=== PATIENT | female | born 1950 | race Caucasian/White ===

== ENCOUNTER → 2016-11-12 | Outpatient (CLI) | payer MEDICARE, OTHER ==
[2016-11-12 15:31] LABS: Basophils % (A) 0 %; CH 31.3; CHCM 33.6; Eosinophils # (A) 0.2 k/uL (0-0.7); Eosinophils % (A) 3 %; HDW 2.43; HGB 13.4 gm/dL (11.4-16.0); Luc % (Auto) 2; Lymphocytes # (A) 1.9 k/uL (1.0-4.8); Lymphocytes % (A) 31 %; MCH 30.6 pg (25.0-35.0); MCHC 32.6 g/dL (31.0-37.0); MCV 93.7 fL (80.0-100.0); Mean Platelet Volume 7.5; Monocytes # (A) 0.2 k/uL (0-1.0); Monocytes % (A) 4 %; Neutrophils # (A) 3.8 k/uL (1.3-7.7); Neutrophils % (A) 61 %; RBC 4.37 m/uL (3.80-5.40); RDW 13.4 % (11.5-15.5); WBC 6.2 k/uL (3.8-10.6); WBC (Perox) 5.97
[2016-11-12 15:47] LABS: ALT 46 U/L (9-52); AST 34 U/L (14-36); Alkaline Phosphatase 80 U/L (38-126); Anion Gap 10 mmol/L; Blood Urea Nitrogen 19 mg/dL (7-17); Calcium 9.8 mg/dL (8.4-10.2); Carbon Dioxide 26 mmol/L (22-30); Chloride 107 mmol/L (98-107); Glucose 84 mg/dL (74-99); Non-African American GFR(MDRD) >60 (>60 ml/min/1.73 sqM); Sodium 143 mmol/L (137-145); Total Bilirubin 0.7 mg/dL (0.2-1.3); Total Protein 6.3 g/dL (6.3-8.2)
[2016-11-12 15:55] LABS: Potassium 4.6 mmol/L (3.5-5.1)
[2016-11-12 16:18] LABS: Cancer Anitgen 125 8.8 U/mL (<35.1)
== END | disposition home or self-care (01) ==
LOC: LABWHC1 15:16
PROVIDERS: ATTEND Obstetrics & Gynecology Gynecologic Oncology
DX: C54.1 Malignant neoplasm of endometrium (principal)
CPT/HCPCS: 36415; 80053; 82378; 85025; 86304

== ENCOUNTER → 2017-01-27 | Outpatient (CLI) | payer MEDICARE, OTHER ==
--- NOTE | 2017-01-27 14:49 | US ---
EXAMINATION TYPE: US venous doppler duplex LE RT DATE OF EXAM: 01/27/2017 2:21 PM COMPARISON: Right lower extremity venous ultrasound June 20, 2016 CLINICAL HISTORY: Evaluate DVT, Z09 F/U Exam Pain M79.604. pt states intermittent rt leg pain, no pre v dvt SIDE PERFORMED: right TECHNIQUE: The right lateral lower extremity deep venous system is examined utilizing real time line ar array sonography with graded compression, Doppler sonography and col-flow sonography. VESSELS IMAGED: External Iliac Vein (EIV) Common Femoral Vein Deep Femoral Vein Greater Saphenous Vein * Femoral Vein Popliteal Vein Small Saphenous Vein * Proximal Calf Veins (* superficial vessels) TECHNOLOGIST IMPRESSION: negative for Right Leg DVT Grayscale, color Doppler, spectral Doppler imaging performed of the deep veins in the right lower ext remity. There is normal flow, compressibility and vascular waveforms noted. IMPRESSION: No ultrasound evidence for acute DVT in the right lower extremity. No significant change from prior.
== END ==
LOC: RADUSWWP 13:58
PROVIDERS: ATTEND Orthopaedic Surgery
DX: I80.9 Phlebitis and thrombophlebitis of unspecified site (principal); M25.561 Pain in right knee; M17.11 Unilateral primary osteoarthritis, right knee

== ENCOUNTER → 2017-03-26 | Outpatient (CLI) | payer MEDICARE, OTHER ==
[2017-03-26 13:47] LABS: Basophils % (A) 0 %; CH 30.9; CHCM 33.5; Eosinophils # (A) 0.1 k/uL (0-0.7); Eosinophils % (A) 2 %; HCT 42.5 % (34.0-46.0); HDW 2.31; HGB 14.3 gm/dL (11.4-16.0); Luc # (Auto) 0.15; Luc % (Auto) 3; Lymphocytes # (A) 2.1 k/uL (1.0-4.8); Lymphocytes % (A) 41 %; MCH 31.2 pg (25.0-35.0); MCHC 33.7 g/dL (31.0-37.0); MCV 92.7 fL (80.0-100.0); Mean Platelet Volume 6.9; Monocytes # (A) 0.2 k/uL (0-1.0); Monocytes % (A) 4 %; Neutrophils # (A) 2.5 k/uL (1.3-7.7); Neutrophils % (A) 50 %; RBC 4.59 m/uL (3.80-5.40); RDW 13.3 % (11.5-15.5); WBC 5.1 k/uL (3.8-10.6); WBC (Perox) 4.95
[2017-03-26 14:05] LABS: ALT 38 U/L (9-52); AST 27 U/L (14-36); Alkaline Phosphatase 68 U/L (38-126); Anion Gap 9 mmol/L; Blood Urea Nitrogen 17 mg/dL (7-17); Calcium 10.1 mg/dL (8.4-10.2); Carbon Dioxide 28 mmol/L (22-30); Chloride 106 mmol/L (98-107); Cholesterol 195 mg/dL (<200); Glucose 85 mg/dL (74-99); HDL Cholesterol 78 mg/dL (40-60); Non-African American GFR(MDRD) >60 (>60 ml/min/1.73 sqM); Sodium 143 mmol/L (137-145); Total Bilirubin 0.9 mg/dL (0.2-1.3); Total Protein 7.2 g/dL (6.3-8.2); Triglycerides 133 mg/dL (<150)
[2017-03-26 14:36] LABS: Cancer Anitgen 125 9.6 U/mL (<35.1)
== END | disposition home or self-care (01) ==
LOC: LABWHC1 13:25
PROVIDERS: ATTEND Family Medicine
DX: C54.1 Malignant neoplasm of endometrium (principal)
CPT/HCPCS: 36415; 80053; 80061; 82378; 85025; 86304

== ENCOUNTER → 2017-04-04 | Outpatient (CLI) | payer MEDICARE, OTHER ==
[2017-04-04 15:29] LABS: Appearance,Urine Cloudy (Clear); Bacteria,Urine Rare /hpf; Bilirubin,Urine Negative (Negative); Glucose,Urine (UA) Negative (Negative); Ketones,Urine Negative (Negative); Leukocyte Esterase,Urine Moderate (Negative); Mucus,Urine Rare /hpf; Nitrite,Urine Negative (Negative); PH, Urine 5.5 (5.0-8.0); Particle Count 4615; Protein,Urine Negative (Negative); RBC,Urine 1 /hpf (0-5); Specific Gravity,Urine 1.013 (1.001-1.035); Squamous Epithelial Cell,Urine 4 /hpf (0-4); UA Billing (MACRO vs. MICRO) MICRO; Urobilinogen,Urine <2.0 mg/dL (<2.0); WBC,Urine 6 /hpf (0-5)
[2017-04-04 15:36] LABS: Partial Thromboplastin Time 23.7 sec (22.0-30.0); Prothrombin Time 10.1 sec (9.0-12.0)
== END | disposition home or self-care (01) ==
LOC: LABPAT 15:06
PROVIDERS: ATTEND Orthopaedic Surgery
DX: Z01.812 Encounter for preprocedural laboratory examination (principal)
CPT/HCPCS: 81001; 85610; 85730; 87070

== ENCOUNTER → 2017-04-04 | Outpatient (CLI) | payer MEDICARE, OTHER | END | disposition home or self-care (01) | LOC: LABWHC1 15:08 | PROVIDERS: ATTEND Family Medicine | DX: Z53.9 Procedure and treatment not carried out, unspecified reason (principal) ==

== ENCOUNTER 2017-04-21 11:23 | Inpatient (IN) | payer MEDICARE, OTHER ==
[2017-04-14 12:06] VITALS: BMI 36.9
[~2017-04-21 11:23] MED LIST: ACETAMINOPHEN TAB 500 MG TAB PO ONE; CLINDAMYCIN 900 MG in DEXTROSE 5% IN WATER 50 ML IVPB ONE; DEXAMETHASONE SOD PHOSPHATE 10 MG/ML 1 ML VIAL IV ONE; LACTATED RINGERS 1,000 ML IV SCH; MELOXICAM 7.5 MG TAB PO ONE; MIDAZOLAM 2 MG/2 ML VIAL IV PRN; ONDANSETRON 4 MG/2 ML VIAL IVP ONE; TRANEXAMIC ACID 1,000 MG in SODIUM CHLORIDE 0.9% 100 ML IVPB ONE
[2017-04-21] MEDS ORDERED: ROPIVACAINE 246.25 MG, EPINEPHrine 0.5 MG, KETOROLAC 30 MG, cloNIDine HCL/PF 80 MCG, WA... MISCELLANE ONE ×5 (12:58)
[2017-04-21] MEDS ORDERED: LIDOCAINE 1% 20 ML VIAL (10MG/ML) FOR IV START INTRADERMA ONE (14:04)
[2017-04-21] MEDS ORDERED: ROPIVACAINE 5 MG/ML 30 ML VIAL ONE (17:39)
[2017-04-21] MEDS ORDERED: MIDAZOLAM 2 MG/2 ML VIAL ONE (17:39)
[2017-04-21] MEDS ORDERED: ePHEDrine 50 MG/ML 1 ML AMP ONE (17:39)
[2017-04-21] MEDS ORDERED: PROPOFOL 10 MG/ML 20 ML VIAL IV ONE (17:39)
[2017-04-21] MEDS ORDERED: fentaNYL (PF) 50 MCG/ML 2 ML AMP ONE (17:39)
[2017-04-21] MEDS ORDERED: ONDANSETRON 4 MG/2 ML VIAL ONE (17:39)
[2017-04-21] MEDS ORDERED: LACTATED RINGERS 1,000 ML IV ONE ×3 (18:00→19:34)
[2017-04-21] MEDS ORDERED: HYDROmorphone 1 MG/ML 1 ML SYRINGE IVP PRN ×2 (19:42)
[2017-04-21] MEDS ORDERED: NALOXONE 0.4 MG/ML 1 ML VIAL IV PRN (19:42)
[2017-04-21] MEDS ORDERED: HYDROcodone/APAP 5-325MG 1 EACH TAB PO PRN (19:42)
[2017-04-21] MEDS ORDERED: TEMAZEPAM 15 MG CAP PO PRN (19:42)
[2017-04-21] MEDS ORDERED: ACETAMINOPHEN TAB 325 MG TAB PO PRN (19:42)
[2017-04-21] MEDS ORDERED: NA PHOS,M-B/NA PHOS,DI-BA 133 ML ENEMA RECTAL PRN (19:42)
[2017-04-21] MEDS ORDERED: MAGNESIUM HYDROXIDE 2,400 MG/10 ML CUP PO PRN (19:42)
[2017-04-21] MEDS ORDERED: ONDANSETRON 4 MG/2 ML VIAL IVP PRN (19:42)
--- NOTE | 2017-04-21 19:45 | P.OP ---
Date of Procedure: 04/21/17 Preoperative Diagnosis: Postoperative Diagnosis: Procedure(s) Performed: PREOPERATIVE DIAGNOSIS: Right knee severe osteoarthritis with genu varum POSTOPERATIVE DIAGNOSIS: Right knee severe osteoarthritis with genu varum OPERATION: Right knee cemented total replacement arthroplasty. ANESTHESIA: Spinal ESTIMATED BLOOD LOSS: 100 ml. STRUCTURAL STEEL ERECTOR: Sugar Vinson PA-C (assistance with: patient positioning, retraction, exposure, hemostasis, leg positioning, implantation, irrigation, closure, dressing) COMPLICATIONS: None apparent. COMPONENTS IMPLANTED: Persona system from [employer] INDICATIONS: Mrs. Mccray is a 67-year-old female with a history of right knee osteoarthritis. The patient's knee is end-stage, and conservative management has failed. The operation of knee replacement has been discussed at length in the office, as well as potential risks and complications. These are inclusive of, but not limited to: bleeding, infection, scarring, discomfort, blood vessel and nerve damage, need for further surgery, failure to relieve symptoms, persistence, recurrence, or worsening of problems, loosening, dislocation, wear , blood clot, pulmonary embolism, , gait dysfunction, stiffness, and other risks as discussed in the office. The patient elects to proceed and the consent form has been signed. PROCEDURE: The patient was taken to the operating room and positioned on the operating room table in the supine position. Anesthesia was initiated. Care was taken to make sure that all pressure points were adequately padded. The operative lower extremity was prepped and draped in the usual aseptic fashion using ChloraPrep. Ioban drape was used for the case and the patient received intravenous antibiotics within one hour of the incision. A pneumotourniquet and leg resendiz were used for the case. The limb was exsanguinated with an Esmarch bandage and the tourniquet was inflated to 350 mmHg. Time-out was called confirming the patient's identity, side, procedure and administration of tranexamic acid and antibiotics. The incision was then created midline directly over the knee, carried down through skin and into the subcutaneous tissues and down to fascia. Full thickness subcutaneous medial flap was developed. Medial parapatellar arthrotomy was performed and the interior of the knee was inspected. There was end-stage osteoarthritis of the knee with a mild to moderate genu varum type deformity. The fat pad was excised and proximal medial release on the tibia was completed using meticulous dissection and a curved osteotome. The anterior cruciate ligament was taken down. Note was made of significant attrition of the anterior and significant degenerative appearance of the posterior cruciate ligaments. The exposure was excellent. The knee was flexed 90 degrees and the patella was everted. A spot was chosen on the femur approximately 1 cm anterior to the posterior cruciate ligament insertion and an intramedullary hole was created within the femur. The intramedullary guide was then set to 5 degrees of valgus. The distal cutting block was attached and pinned into position. An appropriate amount of distal femoral resection was set. The oscillating saw was then used to make the distal femoral cut. This cut was confirmed to be flat with the flat end of an osteotome. The retractors were placed around the tibia and the tibial surface was addressed. The angle and depth of resection was adjusted using an extramedullary cutting guide. The guide had a built-in 3 degree posterior slope cut. Once the cutting guide was adjusted appropriately and in line with the axis of the tibia and confirmed to be in good position in relation to the second metatarsal and transmalleolar axis, the tibial cut was then created with protection of the posterior neurovascular structures and the collateral ligaments. The tibial cut surface was removed and sized. Femoral sizing was then accomplished using anterior referencing. Care was taken to analyze the posterior condyles for signs of deficiency or severe wear, and adjustments to the guide were made, as appropriate. 3 degree external rotation pins were placed. The cutting jig for the femur was applied to these pins. The planned cuts were further analyzed prior to performing them with the oscillating saw. No femoral notching was produced. Bone fragments were removed and the cut surfaces were finished, as necessary, with a reciprocating saw. Spacer block technique was then used to confirm that the flexion and extension gaps were equal. Soft tissue releases and adjustment of the tibial and/or femoral cuts were made, as necessary, until the gaps were equal. This included release of the posterior cruciate ligament, which was tight in this patient and , if left unreleased, would have resulted in poor kinematics and possibly early loosening. The femur was then further finished for a posterior cruciate ligament substituting component. Patellar resurfacing was performed using a reamer. The size of the required patellar component was estimated and the patellar surface was then reamed down to a residual thickness which would recreate the [place] thickness with the component. The placement of the patellar component was influenced by the degree of patellar subluxation, if any, noted on the preoperative x-rays. Prior to placing trial components, anesthetic solution consisting of ropivicaine with epinephrine, ketorolac, and clonidine was injected carefully and methodically in a grid pattern using aspiration technique into the soft tissue around the knee circumferentially, starting with the deeper tissues first and progressing to fascia, and then finally the skin/subcutaneous tissue. Particular care was taken when injecting the posterior capsule. The trial components were inserted. The tibial tray was allowed to self center and the patella was noted to track very well. The position of the tibial component was marked and the tibia was then finished for a stemmed tibial component. Cement was mixed on the back table and applied to the final components. Trial components were removed and the cut surfaces of the bone were pulse lavaged thoroughly and dried. Cement was then applied to the tibial surface and pressurized into the surface using finger pressurization technique. The tibial component was then applied and excess cement was removed after it was impacted securely and noted to be flush with the cut surface. In similar fashion, the cement was applied to the cut femoral surface, pressurized in using finger pressurization and the component was impacted into place. Excess cement was removed. The polyethylene spacer was then implanted and locked into position. The patellar component was then applied in similar technique and a patellar clamp was used to hold the patella in place as the cement hardened. Once the cement had fully hardened, the knee was reinspected. Any other cement extrusion was removed and final kinematic testing showed range of motion from 0 to 130 degrees with excellent stability, both medially and laterally and appropriate alignment of the leg. Patellar tracking was excellent. The knee was then thoroughly pulse lavaged with normal saline. The tourniquet was deflated and hemostasis was obtained with electrocautery and IV tranexamic acid, 1 g given at the start of the operation and 1 g at the start of closure. Closure was with #2 Ethibond in the fascia/capsule and supplemented with #2 Quill, 2-0 Vicryl suture was used for the subcutaneous tissues and 3-0 Quill for the skin. Dermabond/Steri-Strips were then applied. A lightly compressive dressing was applied using Webril and an Daryn wrap. The patient was then transferred to stretcher and taken to the recovery room in stable condition. Sponge and needle counts were correct. Implants: Indications for Procedure: Operative Findings: Description of Procedure:
[2017-04-21] MEDS: HYDROmorphone 1 MG/ML 1 ML SYRINGE IVP PRN ×2 (20:34→21:59)
--- NOTE | 2017-04-21 20:42 | XR ---
EXAMINATION TYPE: XR knee limited RT DATE OF EXAM: 04/21/2017 COMPARISON: NONE HISTORY: Postoperative TECHNIQUE: AP and crosstable lateral FINDINGS: TKR placement appears anatomic. Postsurgical soft tissue findings noted. No unexpected radi opaque foreign bodies. Skeletal structures are unremarkable. IMPRESSION: Postoperative.
[2017-04-21] MEDS: LACTATED RINGERS 1,000 ML IV SCH (21:58)
[2017-04-21] MEDS: SENNOSIDES-DOCUSATE SODIUM 1 EACH TAB PO SCH (21:59)
[2017-04-21] MEDS: ASPIRIN 325 MG TAB PO SCH (22:00)
[2017-04-21] MEDS: HYDROcodone/APAP 5-325MG 1 EACH TAB PO PRN (23:17)
[2017-04-21] MEDS: hydrOXYzine PAMOATE 25 MG CAP PO PRN (23:17)
[2017-04-22] MEDS: CLINDAMYCIN 900 MG in DEXTROSE 5% IN WATER 50 ML IVPB SCH ×4 (00:20→05:03)
[2017-04-22] MEDS: HYDROmorphone 1 MG/ML 1 ML SYRINGE IVP PRN ×3 (01:24→22:26)
[2017-04-22] MEDS: hydrOXYzine PAMOATE 25 MG CAP PO PRN ×2 (05:03→11:42)
[2017-04-22] MEDS: HYDROcodone/APAP 5-325MG 1 EACH TAB PO PRN ×4 (05:03→23:27)
[2017-04-22 08:03] LABS: Basophils % (A) 0 %; CH 31.2; Eosinophils % (A) 0 %; HCT 34.5 % (34.0-46.0); HDW 2.38; HGB 11.5 gm/dL (11.4-16.0); Luc # (Auto) 0.13; Luc % (Auto) 2; Lymphocytes # (A) 1.3 k/uL (1.0-4.8); Lymphocytes % (A) 15 %; MCH 30.6 pg (25.0-35.0); MCHC 33.2 g/dL (31.0-37.0); MCV 92.2 fL (80.0-100.0); Mean Platelet Volume 7.2; Monocytes # (A) 0.3 k/uL (0-1.0); Monocytes % (A) 4 %; Neutrophils # (A) 6.7 k/uL (1.3-7.7); Neutrophils % (A) 79 %; RBC 3.74 m/uL (3.80-5.40); RDW 13.2 % (11.5-15.5); WBC 8.5 k/uL (3.8-10.6); WBC (Perox) 8.83
[2017-04-22] MEDS: LACTATED RINGERS 1,000 ML IV SCH ×2 (08:03→09:32)
--- NOTE | 2017-04-22 08:08 | P.PN ---
Subjective Principal diagnosis: Primary osteoarthritis right knee. Status post total knee arthroplasty. This is a 67-year-old female who is status post total right knee arthroplasty. She is doing well from an orthopedic standpoint. She has no new complaints or concerns today. Vital signs and labs are stable. Objective - Vital Signs Vital signs: Vital Signs Temp 97.6 F 04/22/17 07:24 Pulse 67 04/22/17 07:24 Resp 18 04/22/17 07:24 BP 92/56 04/22/17 07:24 Pulse Ox 95 04/22/17 07:24 Intake & Output 04/21/17 04/22/17 04/22/17 18:59 06:59 18:59 Intake Total 2156 1300 Output Total 50 Balance 2156 1250 Intake: IV 2156 100 Intake, IV Titration 1200 Amount Clindamycin 900 mg In 200 Dextrose 5% in Water 50 ml @ 100 mls/hr IVPB Q6HR [facility] Rx#:[id number] Lactated Ringers 1,000 ml 1000 @ 100 mls/hr IV .Q10H [facility] Rx#:[id number] Output: Estimated Blood Loss 50 - Exam This is a pleasant 57-year-old female in no acute distress. She is alert and oriented 3. Exam of the right knee reveals that her incision looks good. There is no erythema or ecchymosis. She has full foot and ankle motion without difficulty or pain. Neurovascular status to the lower extremity is intact. Assessment and Plan (1) Primary localized osteoarthritis of right knee Status: Acute (2) Status post total knee replacement, right Status: Acute Plan: The clinical findings are discussed the patient. She is to begin physical therapy today. We're planning discharge to home tomorrow if doing well.
[2017-04-22] MEDS: MULTIVITAMINS, THERA 1 EACH TAB PO SCH (08:09)
[2017-04-22] MEDS: ASPIRIN 325 MG TAB PO SCH ×2 (08:09→20:57)
[2017-04-22] MEDS: MELOXICAM 7.5 MG TAB PO SCH (08:10)
[2017-04-22] MEDS ORDERED: ZOLPIDEM 10 MG TAB PO PRN (15:10)
[2017-04-22] MEDS: CITALOPRAM HYDROBROMIDE 10 MG TAB PO SCH (16:47)
[2017-04-22] MEDS: SENNOSIDES 8.6 MG TAB PO SCH (16:47)
--- NOTE | 2017-04-22 18:54 | CONS ---
DATE OF CONSULTATION: 04/22/2017. REASON FOR CONSULTATION: Medical management requested by Dr. Nolan. CONSULTATION: This is a 67-year-old patient of Dr. Vazquez who has undergone a right total knee arthroplasty. Had some pain upper side. No nausea, vomiting. The patient's chronic stable medical conditions include hypertension, hyperlipidemia, also has anxiety, depression controlled. REVIEW OF SYSTEMS: CONSTITUTIONAL: None. HEENT: None. RESPIRATORY: None. CARDIOVASCULAR: None. GASTROINTESTINAL: None. GENITOURINARY: None. MUSCULOSKELETAL: Arthritic pain in different joints. Dermatological: None. HEMATOLOGICAL: None. LYMPHATICS: None. PSYCHIATRY: Anxiety, depression controlled. NEUROLOGICAL: None. Past history of hypertension, hyperlipidemia, osteoarthritis, anxiety, depression, ovarian cancer treated with chemotherapy. PAST SURGICAL HISTORY: 1. Hysterectomy. 2. Right ankle fracture. 3. Bilateral ( ) tendon repair. 4. Bilateral cataract surgery. SOCIAL HISTORY: No smoking. Alcohol rarely. FAMILY HISTORY: Breast cancer. HOME MEDICATIONS: 1. Fish 1000 mg p.o. daily. 2. Multivitamin 1 tablet p.o. daily. 3. Gilbert 10, 1 to 2 tablets every 6 hours p.r.n. 4. Ultram 50 mg q.6 p.r.n. 5. Restasis 1 application to eyes b.i.d. 6. Ambien 10 mg q.h.s. p.r.n. 7. Senokot 8.6 mg p.o. daily. 8. Mevacor 10 mg p.o. daily. 9. Zestril 20 mg p.o. q.h.s. 10. Motrin 800 mg q. p.r.n. 11. Vitamin B12 2500 mcg p.o. daily. 12. Celexa 10 mg p.o. daily. 13. Lumigan 0.01% one drop to both eyes q.h.s. 14. Ventolin 1 to 2 puffs q.6 p.r.n. 15. Senokot-S 1 tablet p.o. b.i.d. 16. Gilbert 5 1 to 2 tablets q.4 p.r.n. 17. Aspirin 325 p.o. b.i.d. for DVT prophylaxis. ALLERGIES: CEFAZOLIN, LATEX. ADHESIVES. On examination, temperature 97.5, pulse 56, respiratory rate 17, blood pressure 98/51, pulse ox 97% on room air. GENERAL APPEARANCE: Well built, body mass index 36, lying in bed, awake. EYES: Pupils equal. Conjunctivae normal. HEENT: Oral cavity normal. NECK: JVD not raised. Mass not palpable. RESPIRATORY: Effort normal. LUNGS: Clear. CARDIOVASCULAR: First and second sounds normal. No edema. ABDOMEN: Soft, nontender. Liver and spleen not palpable. LYMPHATIC: No lymph nodes palpable in neck or axillae. PSYCHIATRY: Alert and oriented times three. Mood and affect normal. NEUROLOGICAL: Pupils equal. Cranial nerves grossly intact. Power and sensation grossly intact. INVESTIGATIONS: White count 8.5, hemoglobin 7.5. ASSESSMENT: 1. Right total knee arthroplasty. 2. Essential hypertension. 3. Obesity, body mass index of 36.9. 4. Hyperlipidemia. 5. Primary osteoarthritis in multiple joints. 6. Anxiety depression not otherwise specified. PLAN: Home medications are resumed. Patient getting aspirin for DVT prophylaxis. Pain is controlled. Care was discussed with the patient. Patient's to see a dietitian as an outpatient for weight loss measures. Thank you Dr. Nolan. Copy to Dr. Vazquez.
[2017-04-22] MEDS: cycloSPORINE 0.05% OPHTH 0.4 ML DROPERETTE BOTH EYES SCH (20:56)
[2017-04-22] MEDS: SENNOSIDES-DOCUSATE SODIUM 1 EACH TAB PO SCH (20:56)
[2017-04-22] MEDS ORDERED: LATANOPROST 0.005% OPHTH DROPS 2.5 ML BTL BOTH EYES SCH (21:00)
[2017-04-23] MEDS: LACTATED RINGERS 1,000 ML IV SCH ×2 (03:05→14:03)
[2017-04-23] MEDS: hydrOXYzine PAMOATE 25 MG CAP PO PRN ×2 (05:35→10:49)
[2017-04-23] MEDS: HYDROcodone/APAP 5-325MG 1 EACH TAB PO PRN (05:36)
[2017-04-23] MEDS: ASPIRIN 325 MG TAB PO SCH (08:59)
[2017-04-23] MEDS: SENNOSIDES 8.6 MG TAB PO SCH (08:59)
[2017-04-23] MEDS: MELOXICAM 7.5 MG TAB PO SCH (08:59)
[2017-04-23] MEDS ORDERED: ATORVASTATIN 10 MG TAB PO SCH (09:00)
[2017-04-23] MEDS: CITALOPRAM HYDROBROMIDE 10 MG TAB PO SCH (09:00)
[2017-04-23] MEDS: cycloSPORINE 0.05% OPHTH 0.4 ML DROPERETTE BOTH EYES SCH (09:02)
--- NOTE | 2017-04-23 09:16 | P.DS ---
Providers Date of admission: 04/21/17 12:35 Expected date of discharge: 04/23/17 Attending physician: Hermann Nolan Consults: 04/21/17 19:42 Consult Physician Routine Consulting Provider: Kei Urrutia Consult Reason/Comments: medical management Do you want consulting provider notified?: Yes Primary care physician: Javed Vazquez - Discharge Diagnosis(es) (1) Status post total knee replacement, right Patient is a pleasant 67-year-old female that was admitted to the OR on 2016 to undergo right total knee arthroplasty per Dr. Nolan. She underwent the above procedure which she tolerated well without competition. She had failed conservative measures as an outpatient and desired to proceed with elective surgery after giving informed consent. On day of discharge she is afebrile, vital signs stable, wound is benign, neurovascular status intact, calf is soft nontender, abdomen soft nontender, tolerating by mouth meds and diet, denying new complaints, denying calf pain, voiding without difficulty and passing flatus. Review of systems negative for fever, chills, chest pain, shortness breath, nausea, vomiting, dizziness, headaches, rashes, bleeding, dizziness, headaches, slurred speech or other. Current Visit: Yes Status: Acute Priority: Medium Patient Condition at Discharge: Good Plan - Discharge Summary New Discharge Prescriptions: New Aspirin 325 mg PO BID #120 tab Sennosides-Docusate Sodium [Senokot-S] 1 tab PO BID #60 tablet HYDROcodone/APAP 7.5-325MG [Warren 7.5-325] 1 - 2 each PO Q6HR PRN #90 tab PRN Reason: Pain Discontinued HYDROcodone/APAP 10-325MG [Warren 10-325] 1 - 2 tab PO Q6H PRN PRN Reason: Pain No Action Sennosides [Senokot] 8.6 mg PO DAILY Zolpidem [Ambien] 10 mg PO HS PRN PRN Reason: Insomnia Citalopram Hydrobromide [CeleXA] 10 mg PO QAM Multivitamins, Thera [Multivitamin] 1 tab PO DAILY Ibuprofen [Motrin] 800 tab PO TID PRN PRN Reason: Pain Lisinopril [Zestril] 20 mg PO HS traMADol HCL [Ultram] 50 mg PO Q6HR PRN PRN Reason: Pain Lovastatin [Mevacor] 20 mg PO DAILY Cyanocobalamin (Vitamin B-12) [Vitamin B-12] 2,500 mcg PO DAILY Bimatoprost [Lumigan .01% Ophth Soln] 1 drop BOTH EYES HS cycloSPORINE [Restasis] 1 applicator BOTH EYES BID Maury-3 Fatty Acids/Fish Oil [Fish Oil 1,000 mg Capsule] 1 cap PO DAILY Albuterol Inhaler [Ventolin Inhaler] 1 - 2 puff INHALATION RT-Q6H PRN PRN Reason: Wheezing Discharge Medication List Citalopram Hydrobromide [CeleXA] 10 mg PO QAM 04/07/14 [History] Ibuprofen [Motrin] 800 tab PO TID PRN 04/07/14 [History] Multivitamins, Thera [Multivitamin] 1 tab PO DAILY 04/07/14 [History] Sennosides [Senokot] 8.6 mg PO DAILY 04/07/14 [History] Zolpidem [Ambien] 10 mg PO HS PRN 04/07/14 [History] Lisinopril [Zestril] 20 mg PO HS 01/05/16 [History] Bimatoprost [Lumigan .01% Ophth Soln] 1 drop BOTH EYES HS 04/14/17 [History] Cyanocobalamin (Vitamin B-12) [Vitamin B-12] 2,500 mcg PO DAILY 04/14/17 [ History] Lovastatin [Mevacor] 20 mg PO DAILY 04/14/17 [History] Maury-3 Fatty Acids/Fish Oil [Fish Oil 1,000 mg Capsule] 1 cap PO DAILY [History] cycloSPORINE [Restasis] 1 applicator BOTH EYES BID 04/14/17 [History] traMADol HCL [Ultram] 50 mg PO Q6HR PRN 04/14/17 [History] Albuterol Inhaler [Ventolin Inhaler] 1 - 2 puff INHALATION RT-Q6H PRN 04/21/17 [ History] Aspirin 325 mg PO BID #120 tab 04/22/17 [Rx] Sennosides-Docusate Sodium [Senokot-S] 1 tab PO BID #60 tablet 04/22/17 [Rx] HYDROcodone/APAP 7.5-325MG [Warren 7.5-325] 1 - 2 each PO Q6HR PRN #90 tab [Rx] Follow up Appointment(s)/Referral(s): Sugar Vinson, DAVON [PHYSICIAN PERSONALIZED LIVING MANAGER] - 2 Weeks [facility], [NON-STAFF] - 1 Week Ambulatory/Diagnostic Orders: Continuous Passive Motion (CPM) Machine [DME.AMB1] Time Frame: 3 Weeks, Facility : [facility], Location: Case Management Activity/Diet/Wound Care/Special Instructions: May bear wt as tolerated w walker. May shower if no drainage from incision. CPM 5-6h daily. CPM ordered through [facility] [phone] Discharge Disposition: HOME WITH HOME HEALTH SERVICES
[2017-04-23] MEDS ORDERED: HYDROcodone/APAP 7.5-325MG 1 EACH TAB PO PRN ×2 (10:35)
[2017-04-23] MEDS: MULTIVITAMINS, THERA 1 EACH TAB PO SCH (10:48)
[2017-04-23 14:19] VITALS: BP 112/71; PULSE 79; RESP 16; TEMP 98.1
--- NOTE | 2017-04-23 19:36 | PN ---
DATE OF SERVICE: 04/23/2017 PRESENTING COMPLAINT: Right knee surgery. INTERVAL HISTORY: Patient is status post surgery. Doing much better. Some pain is present. No nausea or vomiting. Did tolerate diet. Did well with physical therapy. No new issues. Review of systems done for constitutional, cardiovascular, GI, pulmonary, musculoskeletal; relevant findings as above. Current medications are reviewed. On examination, temperature 98.9, pulse 95, respirations 17, blood pressure 114/61, pulse ox 95% on room air. GENERAL APPEARANCE: Sitting up, comfortable. EYES: Pupils equal. Conjunctivae normal. NECK: JVD not raised. Mass not palpable. RESPIRATORY: Effort normal. Lungs are clear. CARDIOVASCULAR: First and second sounds normal. No edema. ABDOMEN: Soft, nontender. Liver and spleen not palpable. PSYCHIATRY: Alert and oriented x3. Mood and affect normal. INVESTIGATIONS: White count 8.5, hemoglobin 11.5. these labs are from yesterday. ASSESSMENT: 1. Right total knee arthroplasty. 2. Essential hypertension. 3. Obesity, body mass index of 36.9. 4. Hyperlipidemia. 5. Primary osteoarthritis in multiple joints. 6. Anxiety and depression, not otherwise specified. PLAN: Continue current medication and treatment plan. Care was discussed with the patient.
== END 2017-04-23 15:47 | disposition home health service (06) | DRG 470 ==
LOC: 2ORMAIN 12:35 → 3SUR 20:19
PROVIDERS: ADMIT Orthopaedic Surgery; ATTEND Orthopaedic Surgery
PROC: 0SRC0J9 Replacement of Right Knee Joint with Synthetic Substitute, Cemented, Open Approach (ICD-10-PCS; principal; 2017-04-21 14:55)
DX: M17.11 Unilateral primary osteoarthritis, right knee (principal); I10 Essential (primary) hypertension; E78.5 Hyperlipidemia, unspecified; E66.9 Obesity, unspecified; Z68.36 Body mass index [BMI] 36.0-36.9, adult; Z79.899 Other long term (current) drug therapy; M21.161 Varus deformity, not elsewhere classified, right knee; F32.9 Major depressive disorder, single episode, unspecified; F41.9 Anxiety disorder, unspecified; Z79.82 Long term (current) use of aspirin; Z91.040 Latex allergy status
CPT/HCPCS: 85025; 88300

== ENCOUNTER → 2017-06-09 | Outpatient (CLI) | payer MEDICARE, OTHER ==
[2017-06-09 11:30] LABS: Basophils % (A) 0 %; CH 30.3; CHCM 32.1; Eosinophils # (A) 0.2 k/uL (0-0.7); Eosinophils % (A) 3 %; HCT 44.3 % (34.0-46.0); HDW 2.44; Luc # (Auto) 0.16; Luc % (Auto) 3; Lymphocytes # (A) 2.3 k/uL (1.0-4.8); Lymphocytes % (A) 40 %; MCH 31.1 pg (25.0-35.0); MCHC 32.8 g/dL (31.0-37.0); MCV 94.9 fL (80.0-100.0); Mean Platelet Volume 6.7; Monocytes # (A) 0.3 k/uL (0-1.0); Monocytes % (A) 5 %; Neutrophils # (A) 2.8 k/uL (1.3-7.7); Neutrophils % (A) 49 %; RBC 4.67 m/uL (3.80-5.40); RDW 13.5 % (11.5-15.5); WBC 5.8 k/uL (3.8-10.6); WBC (Perox) 5.19
[2017-06-09 11:36] LABS: HGB 14.5 gm/dL (11.4-16.0)
[2017-06-09 11:50] LABS: AST 27 U/L (14-36); Alkaline Phosphatase 96 U/L (38-126); Blood Urea Nitrogen 17 mg/dL (7-17); Calcium 9.9 mg/dL (8.4-10.2); Chloride 109 mmol/L (98-107); Glucose 84 mg/dL (74-99); Non-African American GFR(MDRD) >60 (>60 ml/min/1.73 sqM); Potassium 4.7 mmol/L (3.5-5.1); Sodium 142 mmol/L (137-145); Total Protein 7.1 g/dL (6.3-8.2)
[2017-06-09 11:56] LABS: ALT 46 U/L (9-52); Anion Gap 10 mmol/L; Carbon Dioxide 23 mmol/L (22-30)
== END | disposition home or self-care (01) ==
LOC: LABWHC1 10:56
PROVIDERS: ATTEND Family Medicine
DX: I10 Essential (primary) hypertension (principal)
CPT/HCPCS: 36415; 80053; 85025

== ENCOUNTER → 2018-04-02 | Outpatient (CLI) | payer MEDICARE, OTHER ==
[2018-04-02 15:49] LABS: Basophils % (A) 1 %; Eosinophils # (A) 0.2 k/uL (0-0.7); Eosinophils % (A) 3 %; HCT 44.2 % (34.0-46.0); HGB 15.2 gm/dL (11.4-16.0); Lymphocytes # (A) 2.1 k/uL (1.0-4.8); Lymphocytes % (A) 32 %; MCH 30.7 pg (25.0-35.0); MCHC 34.4 g/dL (31.0-37.0); MCV 89.1 fL (80.0-100.0); Mean Platelet Volume 6.7; Monocytes # (A) 0.3 k/uL (0-1.0); Monocytes % (A) 5 %; Neutrophils # (A) 3.8 k/uL (1.3-7.7); Neutrophils % (A) 58 %; Platelet Count 290 k/uL (150-450); RBC 4.96 m/uL (3.80-5.40); RDW 13.4 % (11.5-15.5); WBC 6.5 k/uL (3.8-10.6)
[2018-04-02 15:58] LABS: ALT 41 U/L (9-52); AST 31 U/L (14-36); Albumin 4.4 g/dL (3.5-5.0); Alkaline Phosphatase 78 U/L (38-126); Anion Gap 13 mmol/L; Blood Urea Nitrogen 22 mg/dL (7-17); Calcium 10.2 mg/dL (8.4-10.2); Carbon Dioxide 22 mmol/L (22-30); Chloride 107 mmol/L (98-107); Glucose 92 mg/dL (74-99); Potassium 4.4 mmol/L (3.5-5.1); Sodium 142 mmol/L (137-145); Total Bilirubin 0.8 mg/dL (0.2-1.3); Total Protein 6.9 g/dL (6.3-8.2)
--- NOTE | 2018-04-15 10:10 | MM ---
Reason for exam: additional evaluation requested from prior study. Last mammogram was performed 1 year and 3 months ago. History: Patient is postmenopausal and has history of ovarian cancer at age 61. Family history of breast cancer in sister at age 60. Benign MG stereo VAD BX RT of the right breast, June 27, 2015. Took hormonal contraceptives for 5 years beginning at age 20. Physical Findings: Nurse did not find any significant physical abnormalities on exam. MG 3D Diag Mammo W/Cad ADDI Bilateral CC and MLO view(s) were taken. Prior study comparison: January 10, 2017, mammogram, performed at [facility]. January 03, 2016, mammogram, performed at [facility]. September 29, 2015, bilateral MG 3d diag mammo w/cad ADDI. June 20, 2015, right breast MG diagnostic mammo RT w CAD. The breast tissue is almost entirely fat. No significant new findings when compared with previous films. These results were verbally communicated with the patient and result sheet given to the patient on 04/14/18. ASSESSMENT: Benign, BI-RAD 2 RECOMMENDATION: Routine screening mammogram of both breasts in 1 year. Manage patient on a clinical basis.
== END | disposition home or self-care (01) ==
LOC: RADMAMWWP 14:51
PROVIDERS: ATTEND Obstetrics & Gynecology Gynecologic Oncology
DX: Z08 Encounter for follow-up examination after completed treatment for malignant neoplasm (principal); Z85.3 Personal history of malignant neoplasm of breast; C54.1 Malignant neoplasm of endometrium
CPT/HCPCS: 80053; 86304; 82378; 85025; 77066; 36415; G0279; 77062

== ENCOUNTER → 2018-04-14 | Outpatient (CLI) | payer MEDICARE, OTHER ==
--- NOTE | 2018-04-15 07:23 | XR ---
EXAMINATION TYPE: XR chest 2V DATE OF EXAM: 04/14/2018 COMPARISON: 01/05/2016 HISTORY: Shortness of breath TECHNIQUE: Frontal and lateral views of the chest are obtained. FINDINGS: Scattered senescent parenchymal changes noted. Hyperinflation compatible with COPD. No evidence for infiltrate. No evidence for atelectasis. Heart size is stable. Mediastinal structures are stable and grossly unremarkable. No evidence for hilar prominence. Degenerative changes dorsal spine. IMPRESSION: 1. No evidence for acute pulmonary disease.
== END | disposition home or self-care (01) ==
LOC: RADXRMAIN 17:22
PROVIDERS: ATTEND Obstetrics & Gynecology Gynecologic Oncology
DX: C54.1 Malignant neoplasm of endometrium (principal)
CPT/HCPCS: 71046

== ENCOUNTER → 2018-08-06 | Outpatient (CLI) | payer MEDICARE, OTHER ==
--- NOTE | 2018-08-06 18:19 | US ---
EXAMINATION TYPE: US gallbladder DATE OF EXAM: 08/06/2018 COMPARISON: NONE CLINICAL HISTORY: R10.11 RUQ Pain R11.12 Nausea w/vomitting. RUQ pain and vomiting. Exam limitations due to body habitus and over lying bowel gas. EXAM MEASUREMENTS: Liver Length: 18.5 cm Gallbladder Wall: 0.4 cm CBD: 0.6 cm Right Kidney: 9.6 x 4.3 x 3.6 cm Pancreas: Tail obscured by overlying bowel gas Liver: Increased attenuation Gallbladder: Gallstones seen largest 2.7cm thickened wall. Evidence for sonographic Don's sign: No CBD: wnl Right Kidney: No hydronephrosis or masses seen IMPRESSION: Multiple gallstones. Mild gallbladder wall thickening suggestive of acute cholecystitis. No dilated ducts.
== END | disposition home or self-care (01) ==
LOC: RADUSMAIN 17:14
PROVIDERS: ATTEND Physician Assistant
DX: K80.20 Calculus of gallbladder without cholecystitis without obstruction (principal)
CPT/HCPCS: 76705

== ENCOUNTER → 2018-11-23 | Outpatient (CLI) | payer MEDICARE, OTHER ==
[2018-11-23 16:24] LABS: Basophils % (A) 1 %; Eosinophils # (A) 0.1 k/uL (0-0.7); Eosinophils % (A) 3 %; HCT 43.5 % (34.0-46.0); HGB 13.7 gm/dL (11.4-16.0); Lymphocytes # (A) 1.7 k/uL (1.0-4.8); Lymphocytes % (A) 34 %; MCH 29.5 pg (25.0-35.0); MCHC 31.5 g/dL (31.0-37.0); MCV 93.8 fL (80.0-100.0); Mean Platelet Volume 6.1; Monocytes # (A) 0.2 k/uL (0-1.0); Monocytes % (A) 4 %; Neutrophils # (A) 2.8 k/uL (1.3-7.7); Neutrophils % (A) 56 %; Platelet Count 281 k/uL (150-450); RBC 4.64 m/uL (3.80-5.40); RDW 13.8 % (11.5-15.5)
[2018-11-24 03:54] LABS: Albumin 4.6 g/dL (3.80-4.90); Albumin/Globulin Ratio 3.07 (1.20-2.10); Anion Gap 8.1 mmol/L (4.00-12.00); Calcium 9.9 mg/dL (8.7-10.3); Carbon Dioxide 25.9 mmol/L (21.6-31.8); Globulin 1.5 g/dL (1.6-3.3); Potassium 4.9 mmol/L (3.5-5.5); Total Bilirubin 0.3 mg/dL (0.3-1.2); Total Protein 6.1 g/dL (6.2-8.2)
== END | disposition home or self-care (01) ==
LOC: LABWHC1 15:43
PROVIDERS: ATTEND Obstetrics & Gynecology Gynecologic Oncology
DX: Z08 Encounter for follow-up examination after completed treatment for malignant neoplasm (principal); Z85.42 Personal history of malignant neoplasm of other parts of uterus
CPT/HCPCS: 36415; 80053; 82378; 85025; 86304

== ENCOUNTER → 2019-05-03 | Outpatient (CLI) | payer MEDICARE, OTHER | END | disposition home or self-care (01) | LOC: RADMAMWWP 11:39 | PROVIDERS: ATTEND Obstetrics & Gynecology Gynecologic Oncology | DX: Z53.9 Procedure and treatment not carried out, unspecified reason (principal) ==

== ENCOUNTER → 2019-05-27 | Outpatient (CLI) | payer MEDICARE, OTHER ==
--- NOTE | 2019-05-27 12:04 | XR ---
EXAMINATION TYPE: XR chest 2V DATE OF EXAM: 05/27/2019 COMPARISON: Chest x-ray April 14, 2018. HISTORY: Endometrial cancer. TECHNIQUE: Frontal and lateral views of the chest are obtained. FINDINGS: There is chronic parenchymal change without suspicious focal air space opacity, pleural ef fusion, or pneumothorax seen. The cardiac silhouette size is stable and mildly enlarged with atheros clerotic ectatic aorta. The osseous structures are intact. IMPRESSION: Chronic changes without acute pulmonary process. No significant change from prior.
[2019-05-27 12:13] LABS: Basophils % (A) 1 %; Eosinophils # (A) 0.1 k/uL (0-0.7); Eosinophils % (A) 2 %; HCT 40.9 % (34.0-46.0); HGB 13.4 gm/dL (11.4-16.0); Lymphocytes % (A) 35 %; MCHC 32.7 g/dL (31.0-37.0); MCV 91.8 fL (80.0-100.0); Mean Platelet Volume 6.5; Monocytes # (A) 0.2 k/uL (0-1.0); Monocytes % (A) 3 %; Neutrophils # (A) 3.2 k/uL (1.3-7.7); Neutrophils % (A) 57 %; Platelet Count 264 k/uL (150-450); RBC 4.46 m/uL (3.80-5.40); RDW 13.3 % (11.5-15.5); WBC 5.6 k/uL (3.8-10.6)
[2019-05-27 16:37] LABS: African American GFR (CKD) 76.1 (60.0-200.0); Albumin 4.4 g/dL (3.80-4.90); Albumin/Globulin Ratio 2.93 (1.60-3.17); Anion Gap 9.9 mmol/L (4.00-12.00); BUN/Creat Ratio 28.89 Ratio (12.00-20.00); Calcium 9.8 mg/dL (8.7-10.3); Carbon Dioxide 25.1 mmol/L (21.6-31.8); Globulin 1.5 g/dL (1.6-3.3); Potassium 3.9 mmol/L (3.5-5.5); Total Protein 5.9 g/dL (6.2-8.2)
== END | disposition home or self-care (01) ==
LOC: LABWHC1 11:24
PROVIDERS: ATTEND Obstetrics & Gynecology Gynecologic Oncology
DX: Z08 Encounter for follow-up examination after completed treatment for malignant neoplasm (principal); C54.1 Malignant neoplasm of endometrium
CPT/HCPCS: 36415; 71046; 80053; 82378; 85025; 86304

== ENCOUNTER → 2019-06-04 | Outpatient (CLI) | payer MEDICARE, OTHER ==
--- NOTE | 2019-06-08 14:05 | MM ---
Reason for exam: screening (asymptomatic). Last mammogram was performed 1 year and 2 months ago. History: Patient is postmenopausal and has history of ovarian cancer at age 61. Family history of breast cancer in sister at age 60. Benign MG stereo VAD BX RT of the right breast, June 27, 2015. Took hormonal contraceptives for 5 years beginning at age 20. MG 3D Screening Mammo W/Cad Bilateral CC and MLO view(s) were taken. Prior study comparison: April 02, 2018, bilateral MG 3d diag mammo w/cad ADDI. January 10, 2017, mammogram, performed at [facility]. There are scattered fibroglandular densities. No significant new finding when compared with prior studies. Chronic nodularity bilaterally. ASSESSMENT: Benign, BI-RAD 2 RECOMMENDATION: Routine screening mammogram of both breasts in 1 year.
== END | disposition home or self-care (01) ==
LOC: RADMAMWWP 14:38
PROVIDERS: ATTEND Obstetrics & Gynecology Gynecologic Oncology
DX: Z12.31 Encounter for screening mammogram for malignant neoplasm of breast (principal)
CPT/HCPCS: 77063; 77067

== ENCOUNTER → 2019-10-06 | Outpatient (CLI) | payer MEDICARE, OTHER ==
[2019-10-06 10:55] LABS: WBC 4.4 k/uL (3.8-10.6)
[2019-10-06 10:56] LABS: Basophils # (A) 0.1 k/uL (0-0.2); Basophils % (A) 1 %; Eosinophils # (A) 0.2 k/uL (0-0.7); Eosinophils % (A) 3 %; HCT 41.7 % (34.0-46.0); HGB 14.3 gm/dL (11.4-16.0); Lymphocytes # (A) 1.9 k/uL (1.0-4.8); Lymphocytes % (A) 42 %; MCH 31.8 pg (25.0-35.0); MCHC 34.2 g/dL (31.0-37.0); MCV 93.1 fL (80.0-100.0); Mean Platelet Volume 6.7; Monocytes # (A) 0.2 k/uL (0-1.0); Monocytes % (A) 5 %; Neutrophils % (A) 46 %; Platelet Count 267 k/uL (150-450); RBC 4.48 m/uL (3.80-5.40); RDW 12.9 % (11.5-15.5)
[2019-10-06 11:10] LABS: ALT 21 U/L (9-52); AST 25 U/L (14-36); African American GFR (CKD) >90 (>60 ml/min/1.73 sqM); Albumin 4.1 g/dL (3.5-5.0); Alkaline Phosphatase 91 U/L (38-126); Anion Gap 6 mmol/L; Blood Urea Nitrogen 16 mg/dL (7-17); Calcium 10.1 mg/dL (8.4-10.2); Carbon Dioxide 27 mmol/L (22-30); Chloride 108 mmol/L (98-107); Glucose 84 mg/dL (74-99); Non-African American GFR(CKD) 79 (>60 ml/min/1.73 sqM); Potassium 4.6 mmol/L (3.5-5.1); Sodium 141 mmol/L (137-145); Total Bilirubin 1.3 mg/dL (0.2-1.3); Total Protein 6.6 g/dL (6.3-8.2)
--- NOTE | 2019-10-06 15:29 | CT ---
EXAMINATION TYPE: CT ChestAbdPelvis w con DATE OF EXAM: 10/06/2019 COMPARISON: HISTORY: Malignant neoplasm of endometrium CT DLP: 2130.6 mGycm Automated exposure control for dose reduction was used. CONTRAST: CT scan of the chest, abdomen and pelvis is performed with Oral Contrast and with IV Contrast, patien t injected with 100 mL of Isovue 300. FINDINGS: LUNGS: The lungs are grossly clear, there is no concerning parenchymal mass or nodule identified. T here is no pleural effusion or pneumothorax seen. The tracheobronchial tree is patent. MEDIASTINUM: There are no greater than 1 cm hilar or mediastinal lymph nodes. No pericardial effusi on is seen. AORTA: No significant abnormality is seen. OTHER: No additional significant abnormality is seen. LIVER/GB: Patient is post cholecystectomy, liver shows low attenuation likely due to hepatic steatosi s, no evident liver mass.. PANCREAS: No significant abnormality is seen. SPLEEN: No significant abnormality is seen. ADRENALS: No significant abnormality is seen. KIDNEYS: Low dense focus present in exophytic location posterior aspect of the left kidney consistent with small cysts measuring 16 mm REPRODUCTIVE ORGANS: Uterus and adnexal structures are not seen BOWEL: Some diverticular change is associated with the colon, no evident bowel obstruction. Patient is post appendectomy. FREE AIR: No Free Air visible. ASCITES: None seen. RETROPERITONEAL ADENOPATHY: No retroperitoneal adenopathy is seen. LYMPH NODES: No greater than 1 cm abdominal or pelvic lymph nodes are appreciated. URINARY BLADDER: Mild thickening of the urinary bladder wall may be due to lack of distention, corre late to exclude cystitis PELVIC ADENOPATHY: None visualized. OSSEOUS STRUCTURES: Degenerative disc changes, facet arthropathy noted in the visualized lumbar spin e. IMPRESSION: Postop changes. Diverticulosis. No metastatic disease is evident. Hepatic steatosis. Andi tional findings above.
[2019-10-06 16:48] LABS: Cancer Antigen 125 10.5 U/mL (0.0-30.1)
== END | disposition home or self-care (01) ==
LOC: RADCTMAIN 09:53
PROVIDERS: ATTEND Obstetrics & Gynecology Gynecologic Oncology
DX: Z08 Encounter for follow-up examination after completed treatment for malignant neoplasm (principal); K57.30 Diverticulosis of large intestine without perforation or abscess without bleeding; K76.0 Fatty (change of) liver, not elsewhere classified; R93.422 Abnormal radiologic findings on diagnostic imaging of left kidney; R93.41 Abnormal radiologic findings on diagnostic imaging of renal pelvis, ureter, or bladder; Z90.49 Acquired absence of other specified parts of digestive tract; Z85.42 Personal history of malignant neoplasm of other parts of uterus
CPT/HCPCS: 80053; 86304; 82378; 85025; 71260; 74177; 36415; Q9967 ×2

== ENCOUNTER → 2020-06-14 | Outpatient (CLI) | payer MEDICARE, OTHER ==
--- NOTE | 2020-06-14 16:30 | XR ---
EXAMINATION TYPE: XR lumbosacral spine min 4V DATE OF EXAM: 06/14/2020 COMPARISON: None HISTORY: Low back pain TECHNIQUE: Five-view lumbar spine FINDINGS: Mild facet degenerative changes are present. There is loss of disc height L5-S1. Narrowing of disc height is present through the remaining lumbar disc levels. Note is made of vascular calcific ation within the aorta. There 5 lumbar-type vertebral bodies. The pedicles are intact. The mesentery T12 ribs are present. IMPRESSION: 1. Degenerative disc changes to the lumbar spine greatest at L5-S1.
== END | disposition home or self-care (01) ==
LOC: RADXRMAIN 14:51
PROVIDERS: ATTEND Physician Assistant Medical
DX: M51.37 Other intervertebral disc degeneration, lumbosacral region (principal)
CPT/HCPCS: 72110

== ENCOUNTER → 2020-06-14 | Outpatient (CLI) | payer MEDICARE, OTHER ==
--- NOTE | 2020-06-14 16:29 | XR ---
EXAMINATION TYPE: XR chest 2V DATE OF EXAM: 06/14/2020 COMPARISON: 05/27/2019 INDICATION: Malignant neoplasm TECHNIQUE: Frontal and lateral views of the chest are obtained. FINDINGS: The heart size is normal. The pulmonary vasculature is normal. The lungs are clear. IMPRESSION: 1. No suspicious acute pulmonary process. 2. No suspicious changes to suggest metastatic disease.
== END | disposition home or self-care (01) ==
LOC: RADXRMAIN 14:57
PROVIDERS: ATTEND Obstetrics & Gynecology Gynecologic Oncology
DX: Z08 Encounter for follow-up examination after completed treatment for malignant neoplasm (principal); C54.1 Malignant neoplasm of endometrium
CPT/HCPCS: 71046

== ENCOUNTER → 2020-06-26 | Outpatient (CLI) | payer MEDICARE, OTHER ==
[2020-06-26 13:33] LABS: Basophils # (A) 0.1 k/uL (0-0.2); Basophils % (A) 1 %; Eosinophils # (A) 0.1 k/uL (0-0.7); Eosinophils % (A) 2 %; HCT 45.9 % (34.0-46.0); HGB 14.6 gm/dL (11.4-16.0); Lymphocytes # (A) 2.6 k/uL (1.0-4.8); Lymphocytes % (A) 40 %; MCH 30.1 pg (25.0-35.0); MCHC 31.8 g/dL (31.0-37.0); MCV 94.7 fL (80.0-100.0); Mean Platelet Volume 7.4; Monocytes # (A) 0.3 k/uL (0-1.0); Monocytes % (A) 5 %; Neutrophils # (A) 3.2 k/uL (1.3-7.7); Neutrophils % (A) 50 %; Platelet Count 263 k/uL (150-450); RBC 4.85 m/uL (3.80-5.40); RDW 13.2 % (11.5-15.5); WBC 6.5 k/uL (3.8-10.6)
[2020-06-26 19:35] LABS: African American GFR (CKD) 87.2 (60.0-200.0); Albumin 4.2 g/dL (3.80-4.90); Albumin/Globulin Ratio 2.1 (1.60-3.17); Anion Gap 8.9 mmol/L (4.00-12.00); Calcium 10.1 mg/dL (8.7-10.3); Carbon Dioxide 24.1 mmol/L (21.6-31.8); Non-African American GFR(CKD) 75.2 (60.0-200.0); Potassium 4.4 mmol/L (3.5-5.5); Total Bilirubin 0.7 mg/dL (0.2-1.2); Total Protein 6.2 g/dL (6.2-8.2)
== END | disposition home or self-care (01) ==
LOC: LABWHC1 11:59
PROVIDERS: ATTEND Obstetrics & Gynecology Gynecologic Oncology
DX: Z08 Encounter for follow-up examination after completed treatment for malignant neoplasm (principal); C54.1 Malignant neoplasm of endometrium
CPT/HCPCS: 36415; 80053; 85025; 86304

== ENCOUNTER → 2020-06-26 | Outpatient (CLI) | payer MEDICARE, OTHER ==
--- NOTE | 2020-06-28 08:36 | MM ---
Reason for exam: screening (asymptomatic). Last mammogram was performed 1 year and 1 month ago. History: Patient is postmenopausal and has history of ovarian cancer at age 61. Family history of breast cancer in sister at age 60. Benign MG stereo VAD BX RT of the right breast, June 27, 2015. Took hormonal contraceptives for 5 years beginning at age 20. Physical Findings: A clinical breast exam by your physician is recommended on an annual basis and results should be correlated with mammographic findings. MG 3D Screening Mammo W/Cad Bilateral CC and MLO view(s) were taken. Prior study comparison: June 04, 2019, bilateral MG 3d screening mammo w/cad. April 02, 2018, bilateral MG 3d diag mammo w/cad ADDI. There are scattered fibroglandular densities. Benign appearing bilateral calcifications. ASSESSMENT: Benign, BI-RAD 2 RECOMMENDATION: Routine screening mammogram of both breasts in 1 year.
== END | disposition home or self-care (01) ==
LOC: RADMAMWWP 11:39
PROVIDERS: ATTEND Obstetrics & Gynecology Gynecologic Oncology
DX: Z12.31 Encounter for screening mammogram for malignant neoplasm of breast (principal)
CPT/HCPCS: 77063; 77067

== ENCOUNTER 2020-09-04 18:48 | Emergency (ER) | payer MEDICARE, OTHER ==
--- NOTE | 2020-09-04 18:38 | US ---
EXAMINATION TYPE: US venous doppler duplex LE RT DATE OF EXAM: 09/04/2020 6:20 PM COMPARISON: US CLINICAL HISTORY: R60.0 edema. Swelling x 2 days. No hx of DVT. Hx right knee replacement, surgery on right achilles tendon, and surgery on right ankle. SIDE PERFORMED: Right TECHNIQUE: The lower extremity deep venous system is examined utilizing real time linear array sonog marco with graded compression, doppler sonography and color-flow sonography. VESSELS IMAGED: Common Femoral Vein Deep Femoral Vein Greater Saphenous Vein * Femoral Vein Popliteal Vein Small Saphenous Vein * Proximal Calf Veins (* superficial vessels) Right Leg: EIV not visualized. Exam slightly limited due to swelling and patient body habitus. There appear to be internal echoes within the right distal femoral vein and right popliteal vein. These ve in segments do not appear to compress or compress incompletely. Trickle-no flow seen in distal femora l vein and popliteal vein. Prox calf veins not well seen. IMPRESSION: There is evidence of acute and chronic deep vein thrombosis in the right side femoral an d popliteal vein.
[2020-09-04 18:55] VITALS: RESP 18
[2020-09-04 19:53] LABS: Basophils # (A) 0.1 k/uL (0-0.2); Basophils % (A) 1 %; Eosinophils # (A) 0.2 k/uL (0-0.7); Eosinophils % (A) 3 %; HCT 42.6 % (34.0-46.0); Lymphocytes # (A) 2.2 k/uL (1.0-4.8); Lymphocytes % (A) 30 %; MCH 31.1 pg (25.0-35.0); MCHC 32.8 g/dL (31.0-37.0); MCV 94.6 fL (80.0-100.0); Mean Platelet Volume 7.3; Monocytes # (A) 0.4 k/uL (0-1.0); Monocytes % (A) 5 %; Neutrophils # (A) 4.3 k/uL (1.3-7.7); Neutrophils % (A) 59 %; Platelet Count 289 k/uL (150-450); RBC 4.51 m/uL (3.80-5.40); WBC 7.2 k/uL (3.8-10.6)
[2020-09-04 19:59] LABS: Albumin 3.9 g/dL (3.5-5.0); Calcium 9.8 mg/dL (8.4-10.2); Potassium 4.2 mmol/L (3.5-5.1); Total Bilirubin 0.8 mg/dL (0.2-1.3); Total Protein 6.5 g/dL (6.3-8.2)
[2020-09-04 20:02] LABS: INR 0.9 (<1.2); Partial Thromboplastin Time 22.7 sec (22.0-30.0); Prothrombin Time 9.6 sec (9.0-12.0)
[2020-09-04] MEDS ORDERED: APIXABAN 5 MG TAB PO STA (20:07)
--- NOTE | 2020-09-04 20:14 | ED ---
General Adult HPI - General Chief complaint: Extremity Problem,Nontraumatic Stated complaint: DVT Time Seen by Provider: 09/04/20 18:57 Source: patient Mode of arrival: ambulatory Limitations: no limitations - History of Present Illness Initial comments: 70-year-old female presents to the emergency department from outpatient ultrasound for further evaluation after positive DVT study. Patient states she developed pain in her right knee on Friday but attributed it to a tendon issue. States today the area became warm and tender to the touch so she called her primary care provider who saw her in the office and then sent her over for Doppler study. Patient denies any chest pain, tightness in her chest, shortness of breath, difficulty ambulating, or decreased range of motion. States her right leg does appear more swollen to her than the left. Patient states she did have a back injury around Jul 17 and was pretty immobile for around 7 weeks. Patient denies any recent rash, fever, chills, cough, abdominal pain, nausea, vomiting, diarrhea, constipation, back pain, numbness, tingling, dizziness, weakness, hematuria, dysuria, urinary urgency, urinary frequency, headache, visual changes, or any other complaints. - Related Data Home Medications Medication Instructions Recorded Confirmed Citalopram Hydrobromide [CeleXA] 10 mg PO QAM 04/07/14 04/21/17 Multivitamins, Thera [Multivitamin 1 tab PO DAILY 04/07/14 04/21/17 (formulary)] Sennosides [Senokot] 8.6 mg PO DAILY 04/07/14 04/21/17 Zolpidem [Ambien] 10 mg PO HS PRN 04/07/14 04/21/17 lisinopriL [Zestril] 20 mg PO HS 01/05/16 04/21/17 Bimatoprost [[place]umigan .01% Ophth 1 drop BOTH EYES HS 04/14/17 04/21/17 Soln] Cyanocobalamin (Vitamin B-12) 2,500 mcg PO DAILY 04/14/17 04/21/17 [Vitamin B-12] Lovastatin [Mevacor] 20 mg PO DAILY 04/14/17 04/21/17 cycloSPORINE [Restasis] 1 applicator BOTH EYES BID 04/14/17 04/21/17 Albuterol Inhaler (Mhu) [Ventolin 1 - 2 puff INHALATION RT-Q6H PRN 04/21/17 04/21/17 Hfa Inhaler (Mhu)] Previous Rx's Medication Instructions Recorded Aspirin 325 mg PO BID #120 tab 04/22/17 Sennosides-Docusate Sodium 1 tab PO BID #60 tablet 04/22/17 [Senokot-S] HYDROcodone/APAP 7.5-325MG [[place] 1 - 2 each PO Q6HR PRN #90 tab 04/23/17 7.5-325] traMADol HCL [Ultram] 50 mg PO Q6HR PRN #0 04/23/17 Apixaban [Eliquis Starter Pack 0 mg PO DIRECTED 30 Days #1 pack 09/04/20 (for VTE)] Allergies Allergy/AdvReac Type Severity Reaction Status Date / Time adhesive Allergy Unknown Rash/Hives Verified 09/04/20 18:55 cefazolin Allergy Rash/Hives Verified 09/04/20 18:55 latex Allergy Rash/Hives Verified 09/04/20 18:55 chloraprep Allergy Rash/Hives Uncoded 09/04/20 18:55 smoke Allergy Unknown Uncoded 09/04/20 18:55 Review of Systems ROS Statement: Those systems with pertinent positive or pertinent negative responses have been documented in the HPI. ROS Other: All systems not noted in ROS Statement are negative. Past Medical History Past Medical History: Cancer, Osteoarthritis (OA) Additional Past Medical History / Comment(s): HX OF OVARIAN CA WITH CHEMOTHERAPY APPROX 3 YRS AGO (2010) History of Any Multi-Drug Resistant Organisms: None Reported Past Surgical History: Orthopedic Surgery Additional Past Surgical History / Comment(s): RIGHT ANKLE FX, ADDI ACHILLES TENDONS, ADDI CATARACT Past Anesthesia/Blood Transfusion Reactions: No Reported Reaction Past Psychological History: Anxiety Smoking Status: Never smoker Past Alcohol Use History: Rare Past Drug Use History: None Reported - Past Family History Mother History Unknown: Yes Father History Unknown: Yes Sister(s) Family Medical History: Cancer Additional Family Medical History / Comment(s): breast General Exam Limitations: no limitations (Well-developed, well-nourished female who presents in no acute distress. Initial temperature 97.5F, pulse 85, respirations 18, blood pressure 115/62, pulse ox 94% on room air.) General appearance: alert, in no apparent distress Respiratory exam: Present: normal lung sounds bilaterally. Absent: respiratory distress, wheezes, rales, rhonchi, stridor Cardiovascular Exam: Present: regular rate, normal rhythm, normal heart sounds. Absent: systolic murmur, diastolic murmur, rubs, gallop, clicks GI/Abdominal exam: Present: soft, normal bowel sounds. Absent: distended, tend erness, guarding, rebound, rigid Left Lower Leg exam: Present: normal inspection, full ROM. Absent: tenderness, swelling, erythema, Homans' sign Neurovascular tendon exam: Present: no vascular compromise Right Lower Leg exam: Present: full ROM, tenderness, swelling. Absent: erythema, Homans' sign Neurovascular tendon exam: Present: no vascular compromise Neurological exam: Present: alert, oriented X3, CN II-XII intact Psychiatric exam: Present: normal affect, normal mood Skin exam: Present: warm, dry, intact, normal color. Absent: rash Course Vital Signs 09/04/20 09/04/20 09/04/20 18:51 19:50 20:43 Temperature 97.5 F L 98 F Pulse Rate 85 87 77 Respiratory 18 18 18 Rate Blood Pressure 115/62 121/72 120/60 O2 Sat by Pulse 94 L 98 98 Oximetry Medical Decision Making - Medical Decision Making 70-year-old female presents to the emergency department from outpatient ultrasound due to positive Doppler study of the right lower extremity. States she has had pain and swelling in the right lower extremity for the past 2 days. Lab work was obtained with no significant findings; patient was therefore started on Eliquis. Discussed risks associated blood thinning medicines extensi vely and encouraged follow-up with a primary care doctor for recheck and further management. Return parameters discussed with patient. She verbalizes understanding and agrees with this plan. - Lab Data Result diagrams: 09/04/20 19:43 09/04/20 19:43 Lab Results 09/04/20 09/04/20 09/04/20 Range/Units 19:43 19:43 19:43 WBC 7.2 (3.8-10.6) k/uL RBC 4.51 (3.80-5.40) m/uL Hgb 14.0 (11.4-16.0) gm/dL Hct 42.6 (34.0-46.0) % MCV 94.6 (80.0-100.0) fL MCH 31.1 (25.0-35.0) pg MCHC 32.8 (31.0-37.0) g/dL RDW 13.0 (11.5-15.5) % Plt Count 289 (150-450) k/uL Neutrophils % 59 % Lymphocytes % 30 % Monocytes % 5 % Eosinophils % 3 % Basophils % 1 % Neutrophils # 4.3 (1.3-7.7) k/uL Lymphocytes # 2.2 (1.0-4.8) k/uL Monocytes # 0.4 (0-1.0) k/uL Eosinophils # 0.2 (0-0.7) k/uL Basophils # 0.1 (0-0.2) k/uL PT 9.6 (9.0-12.0) sec INR 0.9 (<1.2) APTT 22.7 (22.0-30.0) sec Sodium 139 (137-145) mmol/L Potassium 4.2 (3.5-5.1) mmol/L Chloride 106 (98-107) mmol/L Carbon Dioxide 26 (22-30) mmol/L Anion Gap 7 mmol/L BUN 23 H (7-17) mg/dL Creatinine 0.98 (0.52-1.04) mg/dL Est GFR (CKD-EPI)AfAm 68 (>60 ml/min/1.73 sqM) Est GFR (CKD-EPI)NonAf 59 (>60 ml/min/1.73 sqM) Glucose 121 H (74-99) mg/dL Calcium 9.8 (8.4-10.2) mg/dL Total Bilirubin 0.8 (0.2-1.3) mg/dL AST 29 (14-36) U/L ALT 23 (4-34) U/L Alkaline Phosphatase 98 (38-126) U/L Total Protein 6.5 (6.3-8.2) g/dL Albumin 3.9 (3.5-5.0) g/dL - Radiology Data Radiology results: report reviewed Venous Doppler study of the right lower extremity was obtained due to 2 day history of right leg swelling with pain localized to right popliteal area. Impression per Dr. Vasquez's evidence of acute and chronic deep vein thrombosis from the right side for more on popliteal vein Disposition Clinical Impression: Deep vein thrombosis (DVT) of right lower extremity Disposition: HOME SELF-CARE Condition: Good Instructions (If sedation given, give patient instructions): Deep Vein Thrombosis (ED), Safe Use of Anticoagulants (ED) Additional Instructions: Take blood thinning medicine as prescribed. Follow-up with your primary care provider in the next 1-2 days for a recheck. Watch for signs of bleeding and return to the ER with any chest pain, shortness of breath, or severe headache. Prescriptions: Apixaban [Eliquis Starter Pack (for VTE)] 0 mg PO DIRECTED 30 Days #1 pack Is patient prescribed a controlled substance at d/c from ED?: No Referrals: Alex Hgaan DO [Primary Care Provider] - 1-2 days Time of Disposition: 20:30 ( )
[2020-09-04 20:45] VITALS: BP 120/60; PULSE 77; TEMP 98
== END 2020-09-04 20:45 | disposition home or self-care (01) ==
LOC: EC 18:48
DX: I82.431 Acute embolism and thrombosis of right popliteal vein (principal); I82.411 Acute embolism and thrombosis of right femoral vein; F41.9 Anxiety disorder, unspecified; Z79.899 Other long term (current) drug therapy; Z91.048 Other nonmedicinal substance allergy status; Z88.1 Allergy status to other antibiotic agents; Z91.040 Latex allergy status; Z88.3 Allergy status to other anti-infective agents; Z85.43 Personal history of malignant neoplasm of ovary; Z92.21 Personal history of antineoplastic chemotherapy
CPT/HCPCS: 36415; 80053; 85025; 85610; 85730; 99284

== ENCOUNTER 2020-09-10 17:12 | Emergency (ER) | payer MEDICARE, OTHER ==
[2020-09-10 17:20] VITALS: RESP 18; TEMP 98
--- NOTE | 2020-09-10 17:51 | CT ---
EXAMINATION TYPE: CT brain robson english DATE OF EXAM: 09/10/2020 COMPARISON: NONE HISTORY: Fall injury with neck pain and headache. CT DLP: 1587.9 mGycm. Automated Exposure Control for Dose Reduction was Utilized. TECHNIQUE: CT scan of the head and cervical spine are performed without contrast. FINDINGS: There is no acute intracranial hemorrhage or midline shift identified. Ventricular and mayes lcal prominence. Low-attenuation greatest over the bilateral frontal horns. The calvarium is intact. The globes are intact and the visualized sinuses are clear. Cervical spine is visualized in its entirety from C1 through upper thoracic levels and demonstrates s traightened alignment without evidence of acute fracture or dislocation. Prevertebral soft tissue ap pears within normal limits. The C1-C2 articulation is within normal limits on the coronal images. V ertebral body heights are maintained. Moderate disc space narrowing C5-C6 and C6-C7 levels with poste rior spurring effacing anterior thecal sac greatest C5-C6 level. Waln-[id number]-[id number] bilateral neural fo raminal narrowing C5-C6 level due to marginal spurring. Mild to moderate left-sided neural foraminal narrowing C6-C7 level due to marginal spurring. Lung apices show no pneumothorax. IMPRESSION: 1. There is no acute fracture or dislocation evident in the cervical spine. 2. No acute intracranial hemorrhage or midline shift is seen. Mild to moderate diffuse cerebral atrop hy and chronic small vessel ischemic changes are appreciated.
--- NOTE | 2020-09-10 17:57 | ED ---
General Adult HPI - General Chief complaint: Fall Stated complaint: fall/head injury Time Seen by Provider: 09/10/20 17:23 Source: patient, RN notes reviewed, old records reviewed Mode of arrival: ambulatory Limitations: no limitations - History of Present Illness Initial comments: 70-year-old female recent diagnosis of pulmonary embolism on anticoagulation presenting with head injury. Patient had a slip and fall, falling onto her left knee and striking the right side of her forehead. No loss consciousness. She had some nausea after the fall with no significant vomiting. No chest or abdominal pain. No extremity injury is the left knee which was quite minor. Patient was instructed to present to the emergency department for evaluation if she had had, as she is on anticoagulation. - Related Data Home Medications Medication Instructions Recorded Confirmed Citalopram Hydrobromide [CeleXA] 10 mg PO QAM 04/07/14 04/21/17 Multivitamins, Thera [Multivitamin 1 tab PO DAILY 04/07/14 04/21/17 (formulary)] Sennosides [Senokot] 8.6 mg PO DAILY 04/07/14 04/21/17 Zolpidem [Ambien] 10 mg PO HS PRN 04/07/14 04/21/17 lisinopriL [Zestril] 20 mg PO HS 01/05/16 04/21/17 Bimatoprost [[place]umigan .01% Ophth 1 drop BOTH EYES HS 04/14/17 04/21/17 Soln] Cyanocobalamin (Vitamin B-12) 2,500 mcg PO DAILY 04/14/17 04/21/17 [Vitamin B-12] Lovastatin [Mevacor] 20 mg PO DAILY 04/14/17 04/21/17 cycloSPORINE [Restasis] 1 applicator BOTH EYES BID 04/14/17 04/21/17 Albuterol Inhaler (Mhu) [Ventolin 1 - 2 puff INHALATION RT-Q6H PRN 04/21/17 04/21/17 Hfa Inhaler (Mhu)] Previous Rx's Medication Instructions Recorded Aspirin 325 mg PO BID #120 tab 04/22/17 Sennosides-Docusate Sodium 1 tab PO BID #60 tablet 04/22/17 [Senokot-S] HYDROcodone/APAP 7.5-325MG [[place] 1 - 2 each PO Q6HR PRN #90 tab 04/23/17 7.5-325] traMADol HCL [Ultram] 50 mg PO Q6HR PRN #0 04/23/17 Apixaban [Eliquis Starter Pack 0 mg PO DIRECTED 30 Days #1 pack 09/04/20 (for VTE)] Allergies Allergy/AdvReac Type Severity Reaction Status Date / Time adhesive Allergy Unknown Rash/Hives Verified 09/10/20 17:20 cefazolin Allergy Rash/Hives Verified 09/10/20 17:20 latex Allergy Rash/Hives Verified 09/10/20 17:20 chloraprep Allergy Rash/Hives Uncoded 09/10/20 17:20 smoke Allergy Unknown Uncoded 09/10/20 17:20 Review of Systems ROS Statement: Those systems with pertinent positive or pertinent negative responses have been documented in the HPI. ROS Other: All systems not noted in ROS Statement are negative. Past Medical History Past Medical History: Cancer, Osteoarthritis (OA) Additional Past Medical History / Comment(s): HX OF OVARIAN CA WITH CHEMOTHERAPY APPROX 3 YRS AGO (2010) History of Any Multi-Drug Resistant Organisms: None Reported Past Surgical History: Orthopedic Surgery Additional Past Surgical History / Comment(s): RIGHT ANKLE FX, ADDI ACHILLES TENDONS, ADDI CATARACT, right knee replacement Past Anesthesia/Blood Transfusion Reactions: No Reported Reaction Past Psychological History: Anxiety Smoking Status: Never smoker Past Alcohol Use History: Rare Past Drug Use History: None Reported - Past Family History Mother History Unknown: Yes Father History Unknown: Yes Sister(s) Family Medical History: Cancer Additional Family Medical History / Comment(s): breast General Exam Limitations: no limitations General appearance: alert, in no apparent distress Head exam: Present: other (superficialabrasion, right forehead) Eye exam: Present: normal appearance, PERRL, EOMI. Absent: periorbital swelling ENT exam: Present: normal exam Neck exam: Present: normal inspection. Absent: tenderness, meningismus Respiratory exam: Present: normal lung sounds bilaterally. Absent: respiratory distress, wheezes Cardiovascular Exam: Present: regular rate, normal rhythm GI/Abdominal exam: Present: soft. Absent: distended, tenderness, guarding Extremities exam: Present: tenderness (left knee tenderness, mild erythema no joint swelling or effusion, normal range of motion, distal pulses intact), normal capillary refill, pedal edema Neurological exam: Present: alert, oriented X3, CN II-XII intact. Absent: motor sensory deficit Course Vital Signs 09/10/20 17:15 Temperature 98 F Pulse Rate 58 L Respiratory 18 Rate Blood Pressure 142/85 O2 Sat by Pulse 96 Oximetry Medical Decision Making - Medical Decision Making 70-year-old female presents status post fall, head CT performed negative for intracranial hemorrhage or mass effect, CT cervical spine is negative for fracture subluxation. X-ray of the left knee negative for fracture dislocation. Disposition Clinical Impression: Fall Disposition: HOME SELF-CARE Condition: Good Instructions (If sedation given, give patient instructions): Concussion (ED) Is patient prescribed a controlled substance at d/c from ED?: No Referrals: Alex Hagan DO [Primary Care Provider] - 1-2 days Time of Disposition: 17:53
--- NOTE | 2020-09-10 18:14 | XR ---
EXAMINATION TYPE: XR knee complete LT DATE OF EXAM: 09/10/2020 CLINICAL HISTORY: Pain after fall injury. TECHNIQUE: Three views of the left knee are obtained. COMPARISON: None. FINDINGS: There is no acute fracture/dislocation evident in the left knee. Mild to moderate tricompa rtment joint space loss. Spur from the anterior superior patellar distal quadriceps tendon attachment . The overlying soft tissue appears unremarkable. IMPRESSION: There is no acute fracture or dislocation in the left knee.
[2020-09-10 18:38] VITALS: BP 135/83; PULSE 67
== END 2020-09-10 18:37 | disposition home or self-care (01) ==
LOC: EC 17:12
DX: S09.90XA Unspecified injury of head, initial encounter (principal); L53.9 Erythematous condition, unspecified; M25.562 Pain in left knee; R11.0 Nausea; M19.90 Unspecified osteoarthritis, unspecified site; Z79.01 Long term (current) use of anticoagulants; Z79.82 Long term (current) use of aspirin; Z91.040 Latex allergy status; Z85.43 Personal history of malignant neoplasm of ovary; Z92.21 Personal history of antineoplastic chemotherapy; Z79.899 Other long term (current) drug therapy; Z88.1 Allergy status to other antibiotic agents; Z88.3 Allergy status to other anti-infective agents; Z91.048 Other nonmedicinal substance allergy status; Z96.651 Presence of right artificial knee joint; W01.0XXA Fall on same level from slipping, tripping and stumbling without subsequent striking against object, initial encounter; Y93.01 Activity, walking, marching and hiking; Y92.009 Unspecified place in unspecified non-institutional (private) residence as the place of occurrence of the external cause
CPT/HCPCS: 70450; 72125; 99284

== ENCOUNTER → 2021-07-06 | Outpatient (CLI) | payer MEDICARE, OTHER ==
--- NOTE | 2021-07-06 13:54 | XR ---
EXAMINATION TYPE: XR chest 2V DATE OF EXAM: 07/06/2021 COMPARISON: Chest x-ray 06/14/2020 HISTORY: C54.1 malignant neoplasm endometrium TECHNIQUE: Frontal and lateral views of the chest are obtained. FINDINGS: There is no focal air space opacity, pleural effusion, or pneumothorax seen. The cardiac silhouette size is within normal limits. Aorta is dense. There is thoracic spondylosis. There are ove rlying artifacts. The osseous structures are intact. IMPRESSION: No acute cardiopulmonary process.
--- NOTE | 2021-07-09 09:40 | MM ---
Reason for exam: screening (asymptomatic). Last mammogram was performed 1 year ago. History: Patient is postmenopausal and has history of ovarian cancer at age 61. Family history of breast cancer in sister at age 60. Benign MG stereo VAD BX RT of the right breast, June 27, 2015. Took hormonal contraceptives for 5 years beginning at age 20. Physical Findings: A clinical breast exam by your physician is recommended on an annual basis and results should be correlated with mammographic findings. MG 3D Screening Mammo W/Cad Bilateral CC and MLO view(s) were taken. XCCL view(s) were taken of the left breast. Prior study comparison: June 26, 2020, bilateral MG 3d screening mammo w/cad. June 04, 2019, bilateral MG 3d screening mammo w/cad. There are scattered fibroglandular densities. Stable benign calcifications. There is no discrete abnormality. No significant changes when compared with prior studies. ASSESSMENT: Benign, BI-RAD 2 RECOMMENDATION: Routine screening mammogram of both breasts in 1 year.
== END | disposition home or self-care (01) ==
LOC: RADMAMWWP 12:52
PROVIDERS: ATTEND Obstetrics & Gynecology Gynecologic Oncology
DX: Z12.31 Encounter for screening mammogram for malignant neoplasm of breast (principal); C54.1 Malignant neoplasm of endometrium
CPT/HCPCS: 71046; 77063; 77067

== ENCOUNTER 2021-09-18 17:44 | Inpatient (IN) | payer MEDICARE, OTHER ==
[2021-09-18 18:44] LABS: Calcium 9.8 mg/dL (8.4-10.2); Magnesium 1.9 mg/dL (1.6-2.3); Potassium 4.6 mmol/L (3.5-5.1); Total Bilirubin 1.1 mg/dL (0.2-1.3); Total Protein 6.7 g/dL (6.3-8.2)
--- NOTE | 2021-09-18 18:45 | XR ---
EXAMINATION TYPE: XR chest 2V DATE OF EXAM: 09/18/2021 COMPARISON: 07/06/2021 HISTORY: Short of breath FINDINGS: Heart appears slightly enlarged. There is no heart failure. Costophrenic angles are clear. Thoracic a missy is atheromatous. There is no pleural effusion. IMPRESSION: No active cardiopulmonary disease. Borderline cardiomegaly. Heart appears increased alvaro red to old exam.
[2021-09-18 18:49] LABS: Basophils % (A) 0 %; Eosinophils % (A) 0 %; HCT 43.6 % (34.0-46.0); HGB 14.9 gm/dL (11.4-16.0); Lymphocytes # (A) 1.3 k/uL (1.0-4.8); Lymphocytes % (A) 13 %; MCH 31.4 pg (25.0-35.0); MCHC 34.1 g/dL (31.0-37.0); MCV 92.3 fL (80.0-100.0); Mean Platelet Volume 7.9; Monocytes # (A) 0.3 k/uL (0-1.0); Monocytes % (A) 3 %; Neutrophils # (A) 8.1 k/uL (1.3-7.7); Neutrophils % (A) 82 %; Platelet Count 226 k/uL (150-450); RBC 4.72 m/uL (3.80-5.40); RDW 13.7 % (11.5-15.5)
[2021-09-18 18:58] LABS: Partial Thromboplastin Time 22.9 sec (22.0-30.0); Prothrombin Time 10.4 sec (9.0-12.0)
--- NOTE | 2021-09-18 19:58 | ED ---
SOB HPI - General Chief Complaint: Shortness of Breath Stated Complaint: RADHA,SOB Time Seen by Provider: 09/18/21 17:44 Source: patient, EMS, RN notes reviewed Mode of arrival: EMS Limitations: no limitations - History of Present Illness Initial Comments: 71-year-old female who presents by EMS from her doctor's office after she presented with complaints of shortness of breath started and the fourth of this month. She did recently have a Covid 19 booster on September 06. She was found have a pulse ox of 85% room air she received some relief after getting a nebulizer treatment. She's had no chest pain. No fevers chills nausea vomiting sweats or other symptoms reported at this time other than exertional dyspnea. MD Complaint: shortness of breath - Related Data Home Medications Medication Instructions Recorded Confirmed Multivitamins, Thera [Multivitamin 1 tab PO DAILY 04/07/14 09/18/21 (formulary)] Bimatoprost [Lumigan .01% Ophth 1 drop BOTH EYES BID 04/14/17 09/18/21 Soln] cycloSPORINE [Restasis] 1 applicator BOTH EYES HS 04/14/17 09/18/21 Atorvastatin Calcium [Lipitor] 20 mg PO DAILY 09/18/21 09/18/21 Baclofen [Lioresal] 10 mg PO BID PRN 09/18/21 09/18/21 Citalopram Hydrobromide [CeleXA] 40 mg PO DAILY 09/18/21 09/18/21 Magnesium 250 mg PO DAILY 09/18/21 09/18/21 Meloxicam 15 mg PO DAILY 09/18/21 09/18/21 Vitamin B Complex 1 cap PO DAILY 09/18/21 09/18/21 hydroCHLOROthiazide [Hydrodiuril] 25 mg PO DAILY 09/18/21 09/18/21 lisinopriL [Zestril] 20 mg PO BID 09/18/21 09/18/21 Allergies Allergy/AdvReac Type Severity Reaction Status Date / Time adhesive Allergy Unknown Rash/Hives Verified 09/18/21 19:15 cefazolin Allergy Rash/Hives Verified 09/18/21 19:15 latex Allergy Rash/Hives Verified 09/18/21 19:15 chloraprep Allergy Rash/Hives Uncoded 09/18/21 18:05 smoke Allergy Unknown Uncoded 09/18/21 18:05 Review of Systems ROS Statement: Those systems with pertinent positive or pertinent negative responses have been documented in the HPI. ROS Other: All systems not noted in ROS Statement are negative. Past Medical History Past Medical History: Cancer, Osteoarthritis (OA) Additional Past Medical History / Comment(s): HX OF OVARIAN CA WITH CHEMOTHERAPY APPROX 3 YRS AGO (2010) History of Any Multi-Drug Resistant Organisms: None Reported Past Surgical History: Orthopedic Surgery Additional Past Surgical History / Comment(s): RIGHT ANKLE FX, ADDI ACHILLES TENDONS, ADDI CATARACT, right knee replacement Past Anesthesia/Blood Transfusion Reactions: No Reported Reaction Past Psychological History: Anxiety Smoking Status: Never smoker Past Alcohol Use History: Rare Past Drug Use History: None Reported - Past Family History Mother History Unknown: Yes Father History Unknown: Yes Sister(s) Family Medical History: Cancer Additional Family Medical History / Comment(s): breast General Exam - General Exam Comments Initial Comments: This is a well-developed well-nourished awake alert oriented 3 female Limitations: no limitations General appearance: alert, in no apparent distress Head exam: Present: atraumatic, normocephalic, normal inspection Eye exam: Present: normal appearance, PERRL, EOMI. Absent: scleral icterus, conjunctival injection, periorbital swelling ENT exam: Present: normal exam, mucous membranes moist Neck exam: Present: normal inspection, full ROM, other (genitourinary or bruit s). Absent: tenderness, meningismus, lymphadenopathy Respiratory exam: Absent: respiratory distress, wheezes, rales, rhonchi, stridor Cardiovascular Exam: Present: normal rhythm, tachycardia, normal heart sounds. Absent: systolic murmur, diastolic murmur, rubs, gallop, clicks GI/Abdominal exam: Present: soft, normal bowel sounds. Absent: distended, tenderness, guarding, rebound, rigid Extremities exam: Present: normal inspection, full ROM, normal capillary refill. Absent: tenderness, pedal edema, joint swelling, calf tenderness Back exam: Present: normal inspection, full ROM Neurological exam: Present: alert, oriented X3, CN II-XII intact Psychiatric exam: Present: normal affect, normal mood Skin exam: Present: warm, dry, intact, normal color. Absent: rash Course Vital Signs 09/18/21 17:51 Temperature 98.8 F Pulse Rate 102 H Respiratory 22 Rate Blood Pressure 120/84 O2 Sat by Pulse 96 Oximetry Medical Decision Making - Medical Decision Making I did discuss the findings with the patient as well as with Holly from Dr. Palacio's group. Patient be admitted with consultation by cardiology and pulmonology. - Lab Data Result diagrams: 09/18/21 18:07 09/18/21 18:07 Lab Results 09/18/21 09/18/21 09/18/21 Range/Units 18:07 18:07 18:07 WBC 10.0 (3.8-10.6) k/uL RBC 4.72 (3.80-5.40) m/uL Hgb 14.9 (11.4-16.0) gm/dL Hct 43.6 (34.0-46.0) % MCV 92.3 (80.0-100.0) fL MCH 31.4 (25.0-35.0) pg MCHC 34.1 (31.0-37.0) g/dL RDW 13.7 (11.5-15.5) % Plt Count 226 (150-450) k/uL MPV 7.9 Neutrophils % 82 % Lymphocytes % 13 % Monocytes % 3 % Eosinophils % 0 % Basophils % 0 % Neutrophils # 8.1 H (1.3-7.7) k/uL Lymphocytes # 1.3 (1.0-4.8) k/uL Monocytes # 0.3 (0-1.0) k/uL Eosinophils # 0.0 (0-0.7) k/uL Basophils # 0.0 (0-0.2) k/uL PT 10.4 (9.0-12.0) sec INR 1.0 (<1.2) APTT 22.9 (22.0-30.0) sec D-Dimer 7.93 H (<0.60) mg/L FEU Sodium 135 L (137-145) mmol/L Potassium 4.6 (3.5-5.1) mmol/L Chloride 105 (98-107) mmol/L Carbon Dioxide 20 L (22-30) mmol/L Anion Gap 10 mmol/L BUN 22 H (7-17) mg/dL Creatinine 0.89 (0.52-1.04) mg/dL Est GFR (CKD-EPI)AfAm 76 (>60 ml/min/1.73 sqM) Est GFR (CKD-EPI)NonAf 66 (>60 ml/min/1.73 sqM) Glucose 114 H (74-99) mg/dL Plasma Lactic Acid Armando (0.7-2.0) mmol/L Calcium 9.8 (8.4-10.2) mg/dL Magnesium 1.9 (1.6-2.3) mg/dL Total Bilirubin 1.1 (0.2-1.3) mg/dL AST 32 (14-36) U/L ALT 26 (4-34) U/L Alkaline Phosphatase 100 (38-126) U/L Troponin I (0.000-0.034) ng/mL NT-Pro-B Natriuret Pep pg/mL Total Protein 6.7 (6.3-8.2) g/dL Albumin 4.0 (3.5-5.0) g/dL Coronavirus (PCR) (Not Detectd) 09/18/21 09/18/21 09/18/21 Range/Units 18:07 18:07 18:07 WBC (3.8-10.6) k/uL RBC (3.80-5.40) m/uL Hgb (11.4-16.0) gm/dL Hct (34.0-46.0) % MCV (80.0-100.0) fL MCH (25.0-35.0) pg MCHC (31.0-37.0) g/dL RDW (11.5-15.5) % Plt Count (150-450) k/uL MPV Neutrophils % % Lymphocytes % % Monocytes % % Eosinophils % % Basophils % % Neutrophils # (1.3-7.7) k/uL Lymphocytes # (1.0-4.8) k/uL Monocytes # (0-1.0) k/uL Eosinophils # (0-0.7) k/uL Basophils # (0-0.2) k/uL PT (9.0-12.0) sec INR (<1.2) APTT (22.0-30.0) sec D-Dimer (<0.60) mg/L FEU Sodium (137-145) mmol/L Potassium (3.5-5.1) mmol/L Chloride (98-107) mmol/L Carbon Dioxide (22-30) mmol/L Anion Gap mmol/L BUN (7-17) mg/dL Creatinine (0.52-1.04) mg/dL Est GFR (CKD-EPI)AfAm (>60 ml/min/1.73 sqM) Est GFR (CKD-EPI)NonAf (>60 ml/min/1.73 sqM) Glucose (74-99) mg/dL Plasma Lactic Acid Armando 1.9 (0.7-2.0) mmol/L Calcium (8.4-10.2) mg/dL Magnesium (1.6-2.3) mg/dL Total Bilirubin (0.2-1.3) mg/dL AST (14-36) U/L ALT (4-34) U/L Alkaline Phosphatase (38-126) U/L Troponin I 0.146 H* (0.000-0.034) ng/mL NT-Pro-B Natriuret Pep 3890 pg/mL Total Protein (6.3-8.2) g/dL Albumin (3.5-5.0) g/dL Coronavirus (PCR) (Not Detectd) 09/18/21 Range/Units 18:09 WBC (3.8-10.6) k/uL RBC (3.80-5.40) m/uL Hgb (11.4-16.0) gm/dL Hct (34.0-46.0) % MCV (80.0-100.0) fL MCH (25.0-35.0) pg MCHC (31.0-37.0) g/dL RDW (11.5-15.5) % Plt Count (150-450) k/uL MPV Neutrophils % % Lymphocytes % % Monocytes % % Eosinophils % % Basophils % % Neutrophils # (1.3-7.7) k/uL Lymphocytes # (1.0-4.8) k/uL Monocytes # (0-1.0) k/uL Eosinophils # (0-0.7) k/uL Basophils # (0-0.2) k/uL PT (9.0-12.0) sec INR (<1.2) APTT (22.0-30.0) sec D-Dimer (<0.60) mg/L FEU Sodium (137-145) mmol/L Potassium (3.5-5.1) mmol/L Chloride (98-107) mmol/L Carbon Dioxide (22-30) mmol/L Anion Gap mmol/L BUN (7-17) mg/dL Creatinine (0.52-1.04) mg/dL Est GFR (CKD-EPI)AfAm (>60 ml/min/1.73 sqM) Est GFR (CKD-EPI)NonAf (>60 ml/min/1.73 sqM) Glucose (74-99) mg/dL Plasma Lactic Acid Armando (0.7-2.0) mmol/L Calcium (8.4-10.2) mg/dL Magnesium (1.6-2.3) mg/dL Total Bilirubin (0.2-1.3) mg/dL AST (14-36) U/L ALT (4-34) U/L Alkaline Phosphatase (38-126) U/L Troponin I (0.000-0.034) ng/mL NT-Pro-B Natriuret Pep pg/mL Total Protein (6.3-8.2) g/dL Albumin (3.5-5.0) g/dL Coronavirus (PCR) Not Detected (Not Detectd) - EKG Data -: EKG Interpreted by Me EKG shows normal: sinus rhythm EKG Comments: EKG shows sinus tachycardia of 107 UT interval 176 QRS duration 98 QT since QTC 380/507 nonspecific inferior changes evidence of prominent S wave in lead 1 prominent Q-wave in lead 3 nonspecific T-wave configuration - Radiology Data Radiology results: report reviewed (Imaging reviewed as well as report I also did discuss the case with Dr. Titus from radiology patient does have evidence of pulmonary emboli in all 5 lobes along no evidence of right heart strain however.), image reviewed Critical Care Time Critical Care Time: Yes Total Critical Care Time: 31 Critical Care Time: Critical care time includes initial presentation with history physical labs x- rays multiple reevaluation the patient discussed with patient regarding findings discussed with physician groups review of old charting was available admission orders and documentation of the above Disposition Clinical Impression: Pulmonary embolism, Elevated troponin, Hypoxemia, Elevated brain natriuretic peptide (BNP) level Disposition: ADMITTED IP TO THIS [facility] Condition: Fair Referrals: Alex Hagan DO [Primary Care Provider] - 1-2 days
--- NOTE | 2021-09-18 20:04 | CT ---
EXAMINATION TYPE: CT angio chest DATE OF EXAM: 09/18/2021 COMPARISON: None HISTORY: Elevated d-dimer, SOB. Hx DVT. CT DLP: 458.6 mGycm Automated exposure control for dose reduction was used. CONTRAST: Performed with IV Contrast, patient injected with 100 mL of Isovue 370. Images obtained from the thoracic inlet to the diaphragm with IV contrast. There are 3-D post process ed images. There is mild scarring and atelectasis at the posterior lung bases. There is no pleural effusion. Hea rt size is fairly normal. There is no pericardial effusion. There are multiple large filling defects in the lower lobe pulmonary arteries bilaterally. There is a lso filling defect left upper lobe pulmonary artery. There are also filling defects extending into th e right upper lobe pulmonary artery. The thoracic spine is intact. There is no compression fracture. Sternum is intact. The ribs appear in tact. IMPRESSION: Extensive bilateral upper and lower lobe pulmonary emboli. No saddle embolism. No evidence of right h eart strain. This exam was discussed with Dr. Baldwin at 8:00 PM.
[2021-09-18] MEDS ORDERED: HEPARIN SODIUM 1,000 UN/ML (10ML VL) IV ONE (20:05)
[2021-09-18] MEDS ORDERED: HEPARIN SODIUM 1,000 UN/ML (10ML VL) IV PRN (20:05)
[2021-09-18] MEDS ORDERED: FUROSEMIDE 10 MG/ML 4 ML VIAL IV STA (20:22)
[2021-09-18] MEDS ORDERED: NALOXONE 0.4 MG/ML 1 ML VIAL IV PRN (20:23)
[2021-09-18] MEDS ORDERED: BACLOFEN 10 MG TAB PO PRN (20:29)
[2021-09-18] MEDS ORDERED: IPRATROPIUM-ALBUTEROL 3 ML NEB INHALATION STA (20:29)
[2021-09-18] MEDS: HEPARIN SOD,PORK IN 0.45% NACL 25,000 UNIT in 0.45% NACL 1 250ML.BAG IV SCH (21:04)
[2021-09-18] MEDS ORDERED: ZOLPIDEM 10 MG TAB PO PRN (21:10)
[2021-09-18] MEDS: cycloSPORINE 0.05% OPHTH 0.4 ML DROPERETTE BOTH EYES SCH (22:25)
[2021-09-18] MEDS: LATANOPROST 0.005% OPHTH DROPS 2.5 ML BTL BOTH EYES SCH (23:19)
[2021-09-19] MEDS: IPRATROPIUM-ALBUTEROL 3 ML NEB INHALATION SCH ×5 (00:48→19:48)
[2021-09-19] MEDS ORDERED: MELATONIN 5 MG TABLET PO STA (03:33)
[2021-09-19 04:24] LABS: Basophils # (A) 0.1 k/uL (0-0.2); Basophils % (A) 1 %; Eosinophils # (A) 0.1 k/uL (0-0.7); Eosinophils % (A) 2 %; HCT 44.5 % (34.0-46.0); HGB 14.6 gm/dL (11.4-16.0); Lymphocytes # (A) 3.5 k/uL (1.0-4.8); Lymphocytes % (A) 39 %; MCH 31.2 pg (25.0-35.0); MCHC 32.8 g/dL (31.0-37.0); MCV 95.1 fL (80.0-100.0); Monocytes # (A) 0.4 k/uL (0-1.0); Monocytes % (A) 5 %; Neutrophils # (A) 4.7 k/uL (1.3-7.7); Neutrophils % (A) 52 %; Platelet Count 197 k/uL (150-450); RBC 4.68 m/uL (3.80-5.40); RDW 13.3 % (11.5-15.5); WBC 9.1 k/uL (3.8-10.6)
[2021-09-19] MEDS: MELOXICAM 7.5 MG TAB PO SCH (08:40)
[2021-09-19] MEDS: ATORVASTATIN 20 MG TAB PO SCH (08:41)
[2021-09-19] MEDS: CITALOPRAM HYDROBROMIDE 20 MG TAB PO SCH (08:41)
[2021-09-19] MEDS: MULTIVITAMINS, THERA 1 EACH TAB PO SCH ×2 (08:41→08:42)
[2021-09-19] MEDS: MAGNESIUM OXIDE 400 MG TAB PO SCH (08:41)
[2021-09-19] MEDS: lisinopriL 20 MG TAB PO SCH ×3 (08:42→21:00)
[2021-09-19] MEDS: hydroCHLOROthiazide 25 MG TAB PO SCH (08:42)
[2021-09-19] MEDS: LATANOPROST 0.005% OPHTH DROPS 2.5 ML BTL BOTH EYES SCH ×2 (08:43→21:20)
[2021-09-19] MEDS ORDERED: NON FORMULARY DRUG (Vitamin B Complex [Vitamin B Complex] 1 EACH Capsule) PO SCH (09:00)
--- NOTE | 2021-09-19 11:40 | ECHOF ---
Referral Reason:Pulmonary embolism MEASUREMENTS -------- HEIGHT: 152.4 cm WEIGHT: 91.2 kg BP: RVIDd: 3.8 cm (< 3.3) IVSd: 1.3 cm (0.6 - 1.1) LVIDd: 4.2 cm (3.9 - 5.3) LVPWd: 1.2 cm (0.6 - 1.1) IVSs: 1.3 cm LVIDs: 3.8 cm LVPWs: 1.3 cm LA Diam: 4.4 cm (2.7 - 3.8) Ao Diam: 3.5 cm (2.0 - 3.7) AV Cusp: 2.0 cm (1.5 - 2.6) LA Diam: 3.5 cm (2.7 - 3.8) MV EXCURSION: 13.883 mm (> 18.000) MV EF SLOPE: 21 mm/s (70 - 150) EPSS: 0.3 cm MV E Mohit: 0.45 m/s MV DecT: 324 ms MV A Mohit: 0.84 m/s MV E/A Ratio: 0.54 RAP: 5.00 mmHg RVSP: 46.26 mmHg FINDINGS -------- Sinus rhythm. This was a technically adequate study. The left ventricular size is normal. There is mild concentric left ventricular hypertrophy. Overa ll left ventricular systolic function is low-normal with, an EF between 50 - 55 %. The right ventricle is mild to moderately enlarged. The right ventricular systolic function is mode rately impaired. The left atrium is mildly dilated. The right atrial size is normal. There is mild aortic valve sclerosis. There is no evidence of aortic regurgitation. Mild mitral annular calcification present. Mild mitral regurgitation is present. [id number] tricuspid regurgitation present. There is mild to moderate pulmonary hypertension. The right ventricular systolic pressure, as measured by Doppler, is 46.26mmHg. Trace/mild (physiologic) pulmonic regurgitation. The aortic root size is normal. Echo free space represents a pericardial fat pad. CONCLUSIONS -------- 1. There is mild concentric left ventricular hypertrophy. 2. Overall left ventricular systolic function is low-normal with, an EF between 50 - 55 %. 3. The right ventricle is mild to moderately enlarged. 4. The right ventricular systolic function is moderately impaired. 5. The left atrium is mildly dilated. 6. There is mild aortic valve sclerosis. 7. Mild mitral regurgitation is present. 8. [id number] tricuspid regurgitation present. 9. There is mild to moderate pulmonary hypertension. 10. Trace/mild (physiologic) pulmonic regurgitation. 11. Echo free space represents a pericardial fat pad. LOGISTICS ANALYTICS MANAGER: Alicia Andrews RDCS
--- NOTE | 2021-09-19 11:55 | P.CNPUL ---
History of Present Illness Consult date: 09/19/21 Reason for consult: pulmonary embolism History of present illness: 71-year-old female patient was hospitalized for worsening shortness of breath and further evaluation here in the emergency room revealed diagnosis of an acute pulmonary embolism. The patient had a road trip going to [place] on August 12 in August 19 and the patient drove back and forth on 2 of these occasions. The patient has been vaccinated for Covid 19 and she receives her booster on 08/29/2021. She came into the hospital because of worsening shortness of breath. She had no chest pain. No fever or chills. No nausea vomiting or emesis. No previous history of DVT or pulmonary embolism. She has previous history of ovarian cancer with previous total abdominal hysterectomy and oophorectomy and the patient was followed by systemic chemotherapy and she has been in remission since 2010. She also has had previous history of DVT in the right lower extremity and the patient had a significant evaluation for a month back and 2 years ago before Covid 19 era. I reviewed the CAT scan of the chest and the patient has evidence of bilateral pulmonary embolism. In fact, the patient had extensive bilateral upper and lower lobe pulmonary emboli. No saddle embolism. No evidence of any right heart strain. D-dimer was at 7.93. Normal renal function. Normal electrolytes. The white cell count was at 10.0 with hemoglobin 14.9 and platelets of 226. Covid 19 testing was negative. ProBNP level was 3890 and a troponin was 0.14. The patient currently is on o xygen on 5 L per minute nasal cannula. She is on IV heparin. PTT is therapeutic. Hemodynamically stable. No significant sinus tachycardia. She is afebrile for now. No significant swelling in the lower extremities. Review of Systems Constitutional: Denies chills, Denies fever Eyes: denies as per HPI, denies blurred vision, denies bulging eye, denies decreased vision, denies diplopia, denies discharge, denies dry eye, denies ir ritation, denies itching, denies pain, denies photophobia, denies loss of peripheral vision, denies loss of vision, denies tunnel vision/blind spots Ears: deny: decreased hearing, ear discharge, earache, tinnitus Ears, nose, mouth and throat: Reports as per HPI Breasts: absent: as per HPI, change in shape, gynecomastia, masses, nipple discharge, pain, skin changes, swelling Breasts: Reports as per HPI Cardiovascular: Reports decreased exercise tolerance, Reports dyspnea on exertion Respiratory: Reports dyspnea Gastrointestinal: Reports as per HPI Genitourinary: Reports as per HPI Menstruation: Reports as per HPI Musculoskeletal: Reports as per HPI Musculoskeletal: absent: ankle pain, ankle stiffness, ankle swelling Integumentary: Reports as per HPI Neurological: Reports as per HPI Psychiatric: Reports as per HPI Endocrine: Reports as per HPI Hematologic/Lymphatic: Reports as per HPI Allergic/Immunologic: Reports as per HPI Past Medical History Past Medical History: Cancer (19 cancer), Deep Vein Thrombosis (DVT) (Approxi mately 2 years ago treated with anticoagulation), Osteoarthritis (OA) Additional Past Medical History / Comment(s): HX OF OVARIAN CA WITH CHEMOTHERAPY APPROX 3 YRS AGO (2010) History of Any Multi-Drug Resistant Organisms: None Reported Past Surgical History: Orthopedic Surgery Additional Past Surgical History / Comment(s): RIGHT ANKLE FX, ADDI ACHILLES TENDONS, ADDI CATARACT, right knee replacement Past Anesthesia/Blood Transfusion Reactions: No Reported Reaction Past Psychological History: Anxiety Smoking Status: Never smoker Past Alcohol Use History: Rare Past Drug Use History: None Reported - Past Family History Mother History Unknown: Yes Father History Unknown: Yes Sister(s) Family Medical History: Cancer Additional Family Medical History / Comment(s): breast Medications and Allergies Home Medications Medication Instructions Recorded Confirmed Type Multivitamins, Thera [Multivitamin 1 tab PO DAILY 04/07/14 09/18/21 History (formulary)] Bimatoprost [Lumigan .01% Ophth 1 drop BOTH EYES BID 04/14/17 09/18/21 History Soln] cycloSPORINE [Restasis] 1 applicator BOTH EYES HS 04/14/17 09/18/21 History Atorvastatin Calcium [Lipitor] 20 mg PO DAILY 09/18/21 09/18/21 History Baclofen [Lioresal] 10 mg PO BID PRN 09/18/21 09/18/21 History Citalopram Hydrobromide [CeleXA] 40 mg PO DAILY 09/18/21 09/18/21 History Magnesium 250 mg PO DAILY 09/18/21 09/18/21 History Meloxicam 15 mg PO DAILY 09/18/21 09/18/21 History Vitamin B Complex 1 cap PO DAILY 09/18/21 09/18/21 History hydroCHLOROthiazide [Hydrodiuril] 25 mg PO DAILY 09/18/21 09/18/21 History lisinopriL [Zestril] 20 mg PO BID 09/18/21 09/18/21 History Allergies Allergy/AdvReac Type Severity Reaction Status Date / Time adhesive Allergy Unknown Rash/Hives Verified 09/18/21 19:15 cefazolin Allergy Rash/Hives Verified 09/18/21 19:15 latex Allergy Rash/Hives Verified 09/18/21 19:15 chloraprep Allergy Rash/Hives Uncoded 09/18/21 18:05 smoke Allergy Unknown Uncoded 09/18/21 18:05 Physical Exam Vitals: Vital Signs Temp Pulse Resp BP Pulse Ox 09/19/21 11:08 90 18 09/19/21 10:58 90 18 09/19/21 06:29 77 18 112/73 91 L 09/19/21 03:37 97.9 F 85 16 104/70 91 L 09/19/21 00:22 84 19 100/78 92 L 09/18/21 17:51 98.8 F 102 H 22 120/84 96 Intake and Output 09/18/21 09/19/21 09/19/21 22:59 06:59 14:59 Intake Total 158.913 0 Balance 158.913 0 Intake: Intake, IV Titration 158.913 0 Amount Heparin Sod,Pork in 0.45% 158.913 0 NaCl 25,000 unit In 0.45 % NaCl 1 250ml.bag @ 18 UNITS/KG/HR 16.411 mls/hr IV .[id number] [facility] Rx#: [id number] Other: Weight 91.172 kg Gen. appearance the patient is calm and comfortable currently on 5 L about 2 by nasal cannula, breathing is nonlabored Head exam was generally normal. There was no scleral icterus or corneal arcus. Mucous membranes were moist. Neck was supple and without jugular venous distension, thyromegaly, or carotid bruits. Carotids were easily palpable bilaterally. There was no adenopathy. Lungs were clear to auscultation and percussion, and with normal diaphragmatic excursion. No wheezes or rales were noted. Cardiac exam revealed the PMI to be normally situated and sized. The rhythm was regular and no extrasystoles were noted during several minutes of auscultation. The first and second heart sounds were normal and physiologic splitting of the second heart sound was noted. There were no murmurs, rubs, clicks, or gallops. Abdominal exam revealed normal bowel sounds. The abdomen was soft, non-tender, and without masses, organomegaly, or appreciable enlargement of the abdominal aorta. Menses, the patient has slightly swollen left lower extremity compared to the right. No calf pain or tenderness. Examination of the skin revealed no evidence of significant rashes, suspicious appearing nevi or other concerning lesions. Neurologically, the patient is awake and alert and the patient does not have any focal neurological deficit. Cranial nerves are essentially intact. Results - Laboratory Findings CBC and BMP: 09/19/21 03:14 09/18/21 18:07 PT/INR, D-dimer PT 10.4 sec (9.0-12.0) 09/18/21 18:07 INR 1.0 (<1.2) 09/18/21 18:07 D-Dimer 7.93 mg/L FEU (<0.60) H 09/18/21 18:07 Abnormal lab findings: Abnormal Labs 09/18/21 09/18/21 09/18/21 18:07 18:07 18:07 Neutrophils # 8.1 H APTT D-Dimer 7.93 H Sodium 135 L Carbon Dioxide 20 L BUN 22 H Glucose 114 H Troponin I 09/18/21 09/18/21 09/19/21 18:07 21:53 00:47 Neutrophils # APTT D-Dimer Sodium Carbon Dioxide BUN Glucose Troponin I 0.146 H* 0.150 H* 0.118 H* 09/19/21 09/19/21 03:14 08:47 Neutrophils # APTT >200.0 H* 94.7 H D-Dimer Sodium Carbon Dioxide BUN Glucose Troponin I - Diagnostic Findings Chest x-ray: image reviewed CT scan - chest: image reviewed Assessment and Plan Plan: 1 acute bilateral pulmonary embolism with secondary shortness of breath and hypoxemia and the patient is currently on 5 L about 2 by nasal cannula. There is some mild elevation of the troponin and there may be some strain pattern on the echocardiogram. Awaiting final echo report. Currently on IV heparin. The patient was driving back and forth to [place] and this could've been a provoking event. Nevertheless, the patient has had previous history of DVTs in the right lower extremity approximately 2 years ago. As such, underlying hypercoagulability need to be considered 2 acute hypoxic respiratory failure secondary to above 3 shortness of breath secondary to above 4 troponin leak secondary to above 5 previous history of DVT of the right lower extremity back in 2019 6 ovarian cancer with previous debulking surgery, abdominal hysterectomy and also recommended the patient has received systemic chemotherapy and the patient has been in remission since 2010 7 hyperlipidemia 8 anxiety Plan IV heparin Doppler of the lower extremities Echocardiogram to evaluate RV pattern/strain pattern and pulmonary hypertension Consulted vascular surgery regarding the possibility of intra-arterial thrombolytics Keep the patient 5 L about 2 by nasal cannula The patient is likely hadn't hours long-term and to coagulation due to recurrent nature of her VTE
--- NOTE | 2021-09-19 11:59 | P.CRDCN ---
History of Present Illness Consult date: 09/19/21 History of present illness: HISTORY OF PRESENT ILLNESS: This is a 71-year-old female with a past medical history significant for hypertension and hyperlipidemia. 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 We have been asked to see the patient in consultation for abnormal troponins. Patient examined at the bedside. Patient presented to the hospital with a chief complaint of shortness of breath. Patient states she got the Covid booster at t hat end of August. She states that she had felt weak and fatigued a few days following her injection. She states on September 13 she began feeling short of breath which has progressively gotten worse. She went to see her PCP yesterday who sent her to the hospital via EMS for evaluation. Patient was found to have pulmonary emboli. She was started on IV heparin. She does report a history of DVT in her right leg a few years ago and states she was treated with medications for about a month. EKG reveals sinus tachycardia with a heart rate of 107. Q waves inferiorly. Chest xray no active cardiac pulmonary disease. Borderline cardiomegaly. Heart appears increased compared to old exam. Chest CTA: Extensive bilateral upper and lower pulmonary emboli. No saddle embolism. No evidence of right heart strain. Echocardiogram completed reveals ejection fraction 50-55%, right ventricle mild to moderately enlarged, mild mitral regurgitation, [id number] tricuspid regurgitation, [id number] pulmonary hypertension with RVSP of 46.26mmhg Laboratory data: WBC 9.1. Hemoglobin 14.6. Platelet count 198. D-dimer 7.93. Sodium 135. Potassium 4.6. BUN 22. Creatinine 0.89. Troponin 0.146. 0.154. 0.118. Current home cardiac medications include lisinopril 20 mg twice a day, hydrochlo rothiazide 25 mg daily, atorvastatin 20 mg daily REVIEW OF SYSTEMS: At the time of my exam: CONSTITUTIONAL: Denies fever or chills. HEENT: Denies blurred vision, vision changes, or eye pain. Denies hemoptysis CARDIOVASCULAR: Denies chest pain. Denies orthopnea. Denies PND. Denies palpitations RESPIRATORY: Denies shortness of breath. GASTROINTESTINAL: Denies abdominal pain. Denies nausea or vomiting. HEMATOLOGIC: Denies bleeding disorders. GENITOURINARY: Denies any blood in urine. SKIN: Denies pruitis. Denies rash. PHYSICAL EXAM: VITAL SIGNS: Reviewed. GENERAL: Well-developed in no acute distress. HEENT: Head is normocephalic. Pupils are equal, round. Sclerae anicteric. Mucous membranes of the mouth are moist. Neck supple. No JVD or thyromegaly LUNGS: Respirations even and unlabored. Lungs essentially clear to auscultation bilaterally. HEART: Regular rate and rhythm. S1 and S2 heard. ABDOMEN: Soft. Nondistended. Nontender. EXTREMITIES: Normal range of motion. No clubbing or cyanosis. Peripheral pulses intact. No lower extremity edema NEUROLOGIC: Awake and alert. Oriented x 3. ASSESSMENT: Pulmonary emboli Abnormal troponins, secondary to above Acute hypoxic respiratory failure requiring supplemental oxygen Hypertension Hyperlipidemia History of right DVT PLAN: Continue IV heparin. Will defer transition to oral anticoagulation to pulmonary/internal medicine Resume home cardiac medications Dr. Guy reviewed echo and states he does not feel the patient needs th rombolytics at this time but will await pulmonary evaluation Further recommendations pending patient's course Nurse practitioner note has been reviewed by physician. Signing provider agrees with the documented findings, assessment, and plan of care. Past Medical History Past Medical History: Cancer, Osteoarthritis (OA) Additional Past Medical History / Comment(s): HX OF OVARIAN CA WITH CHEMOTHERAPY APPROX 3 YRS AGO (2010) History of Any Multi-Drug Resistant Organisms: None Reported Past Surgical History: Orthopedic Surgery Additional Past Surgical History / Comment(s): RIGHT ANKLE FX, ADDI ACHILLES TENDONS, ADDI CATARACT, right knee replacement Past Anesthesia/Blood Transfusion Reactions: No Reported Reaction Past Psychological History: Anxiety Smoking Status: Never smoker Past Alcohol Use History: Rare Past Drug Use History: None Reported - Past Family History Mother History Unknown: Yes Father History Unknown: Yes Sister(s) Family Medical History: Cancer Additional Family Medical History / Comment(s): breast Medications and Allergies Home Medications Medication Instructions Recorded Confirmed Type Multivitamins, Thera [Multivitamin 1 tab PO DAILY 04/07/14 09/18/21 History (formulary)] Bimatoprost [Lumigan .01% Ophth 1 drop BOTH EYES BID 04/14/17 09/18/21 History Soln] cycloSPORINE [Restasis] 1 applicator BOTH EYES HS 04/14/17 09/18/21 History Atorvastatin Calcium [Lipitor] 20 mg PO DAILY 09/18/21 09/18/21 History Baclofen [Lioresal] 10 mg PO BID PRN 09/18/21 09/18/21 History Citalopram Hydrobromide [CeleXA] 40 mg PO DAILY 09/18/21 09/18/21 History Magnesium 250 mg PO DAILY 09/18/21 09/18/21 History Meloxicam 15 mg PO DAILY 09/18/21 09/18/21 History Vitamin B Complex 1 cap PO DAILY 09/18/21 09/18/21 History hydroCHLOROthiazide [Hydrodiuril] 25 mg PO DAILY 09/18/21 09/18/21 History lisinopriL [Zestril] 20 mg PO BID 09/18/21 09/18/21 History Allergies Allergy/AdvReac Type Severity Reaction Status Date / Time adhesive Allergy Unknown Rash/Hives Verified 09/18/21 19:15 cefazolin Allergy Rash/Hives Verified 09/18/21 19:15 latex Allergy Rash/Hives Verified 09/18/21 19:15 chloraprep Allergy Rash/Hives Uncoded 09/18/21 18:05 smoke Allergy Unknown Uncoded 09/18/21 18:05 Physical Exam Vitals: Vital Signs Temp Pulse Resp BP Pulse Ox 09/19/21 06:29 77 18 112/73 91 L 09/19/21 03:37 97.9 F 85 16 104/70 91 L 09/19/21 00:22 84 19 100/78 92 L 09/18/21 17:51 98.8 F 102 H 22 120/84 96 Intake and Output 09/18/21 09/19/21 09/19/21 22:59 06:59 14:59 Intake Total 158.913 Balance 158.913 Intake: Intake, IV Titration 158.913 Amount Heparin Sod,Pork in 0.45% 158.913 NaCl 25,000 unit In 0.45 % NaCl 1 250ml.bag @ 18 UNITS/KG/HR 16.411 mls/hr IV .[id number] [facility] Rx#: [id number] Other: Weight 91.172 kg Results 09/19/21 03:14 09/18/21 18:07 Cardiac Enzymes 09/18/21 09/18/21 09/18/21 Range/Units 18:07 18:07 21:53 AST 32 (14-36) U/L Troponin I 0.146 H* 0.150 H* (0.000-0.034) ng/mL 09/19/21 Range/Units 00:47 AST (14-36) U/L Troponin I 0.118 H* (0.000-0.034) ng/mL Coagulation 09/18/21 09/19/21 Range/Units 18:07 03:14 PT 10.4 (9.0-12.0) sec APTT 22.9 >200.0 H* (22.0-30.0) sec CBC 09/18/21 09/19/21 Range/Units 18:07 03:14 WBC 10.0 9.1 (3.8-10.6) k/uL RBC 4.72 4.68 (3.80-5.40) m/uL Hgb 14.9 14.6 (11.4-16.0) gm/dL Hct 43.6 44.5 (34.0-46.0) % Plt Count 226 197 (150-450) k/uL Comprehensive Metabolic Panel 09/18/21 Range/Units 18:07 Sodium 135 L (137-145) mmol/L Potassium 4.6 (3.5-5.1) mmol/L Chloride 105 (98-107) mmol/L Carbon Dioxide 20 L (22-30) mmol/L BUN 22 H (7-17) mg/dL Creatinine 0.89 (0.52-1.04) mg/dL Glucose 114 H (74-99) mg/dL Calcium 9.8 (8.4-10.2) mg/dL AST 32 (14-36) U/L ALT 26 (4-34) U/L Alkaline Phosphatase 100 (38-126) U/L Total Protein 6.7 (6.3-8.2) g/dL Albumin 4.0 (3.5-5.0) g/dL Current Medications Generic Name Dose Route Start Last Admin Trade Name Freq PRN Reason Stop Dose Admin Albuterol/Ipratropium 3 ml 09/19/21 02:00 09/19/21 08:22 Ipratropium-Albuterol 3 Ml Neb INHALATION Not Given RT-Q6H [facility] Atorvastatin Calcium 20 mg 09/19/21 09:00 Atorvastatin 20 Mg Tab PO DAILY [facility] Baclofen 10 mg 11/09/21 20:29 Baclofen 10 Mg Tab PO BID PRN Muscle Spasm Citalopram Hydrobromide 40 mg 09/19/21 09:00 Citalopram Hydrobromide 20 Mg Tab PO DAILY [facility] Cyclosporine 1 drops 09/18/21 21:00 09/18/21 22:25 Cyclosporine 0.05% Ophth 0.4 Ml Droperette BOTH EYES 1 drops HS [facility] Administration Heparin Sodium (Porcine) 0 unit 09/18/21 20:05 Heparin Sodium 1,000 Un/Ml (10ml Vl) IV PER PROTOCOL PRN Low PTT Protocol Hydrochlorothiazide 25 mg 09/19/21 09:00 Hydrochlorothiazide 25 Mg Tab PO DAILY [facility] Heparin Sodium/Sodium Chloride 250 mls @ 16.411 mls/hr 09/18/21 20:15 09/19/21 06:45 25,000 unit/ Sodium Chloride IV 0 units/kg/hr .[id number] [facility] 0 mls/hr Titration Protocol 18 UNITS/KG/HR Latanoprost 1 drops 09/18/21 21:00 09/18/21 23:19 Latanoprost 0.005% Ophth Drops 2.5 Ml Btl BOTH EYES 1 drops BID [facility] Administration Lisinopril 20 mg 09/18/21 21:00 Lisinopril 20 Mg Tab PO BID [facility] Magnesium Oxide 400 mg 09/19/21 09:00 Magnesium Oxide 400 Mg Tab PO DAILY [facility] Meloxicam 15 mg 09/19/21 09:00 Meloxicam 7.5 Mg Tab PO DAILY [facility] Multivitamins 1 each 09/19/21 09:00 Multivitamins, Thera 1 Each Tab PO DAILY [facility] Naloxone HCl 0.2 mg 09/18/21 20:23 Naloxone 0.4 Mg/Ml 1 Ml Vial IV Q2M PRN Opioid Reversal Zolpidem Tartrate 10 mg 09/19/21 05:06 Zolpidem 5 Mg Tab PO HS PRN Insomnia Intake and Output 09/18/21 09/19/21 09/19/21 22:59 06:59 14:59 Intake Total 158.913 Balance 158.913 Intake: Intake, IV Titration 158.913 Amount Heparin Sod,Pork in 0.45% 158.913 NaCl 25,000 unit In 0.45 % NaCl 1 250ml.bag @ 18 UNITS/KG/HR 16.411 mls/hr IV .[id number] [facility] Rx#: [id number] Other: Weight 91.172 kg 09/19/21 03:14 09/18/21 18:07
--- NOTE | 2021-09-19 16:08 | US ---
EXAMINATION TYPE: US venous doppler duplex LE BI DATE OF EXAM: 09/19/2021 12:59 PM COMPARISON: Right 09/04/2020 CLINICAL HISTORY: 70-year-old female PE, lower extremity edema. New PE's, h/o right leg DVT SIDE PERFORMED: Bilateral TECHNIQUE: The lower extremity deep venous system is examined utilizing real time linear array sonog marco with graded compression, doppler sonography and color-flow sonography. FINDINGS: VESSELS IMAGED: Common Femoral Vein Deep Femoral Vein Greater Saphenous Vein * Femoral Vein Popliteal Vein Small Saphenous Vein * Proximal Calf Veins (* superficial vessels) Right Leg: Negative for DVT Left Leg: Negative for DVT IMPRESSION: No evidence for DVT within the bilateral lower extremities imaged from the groin to the upper calves.
[2021-09-19] MEDS: HEPARIN SOD,PORK IN 0.45% NACL 25,000 UNIT in 0.45% NACL 1 250ML.BAG IV SCH (19:16)
[2021-09-19] MEDS ORDERED: IPRATROPIUM-ALBUTEROL 3 ML NEB INHALATION PRN (19:36)
[2021-09-19] MEDS: cycloSPORINE 0.05% OPHTH 0.4 ML DROPERETTE BOTH EYES SCH (21:20)
--- NOTE | 2021-09-19 23:05 | P.HPIM ---
History of Present Illness H&P Date: 09/19/21 Chief Complaint: SOB Patient is a 71-year-old female with a known history of ovarian cancer status post chemotherapy currently in remission, osteoarthritis and anxiety presents to ER due to complaints of worsening shortness breath. Patient has been symptoms since September 11 of this month with Shortness of breath and was recommended to wear primary care physician to go to ER. COVID-19 test was negative Patient does have history of right lower extremity DVT and was on anticoagulation about 2 years ago. Currently not on any blood thinners.Denies any complaints of chest pain. No leg swelling. No calf tenderness. No fever no chills. No cough or sputum production. Denies any pleuritic pain. Apparently patient went to [place] on a road trip twice and came back to [place] around August 22, 2021. Chest x-ray on admission showed no acute cardiopulmonary disease. Borderline cardiomegaly. Heart appears increasing compared to old exam. CT angiogram of the chest showed bilateral extensive upper and lower lobe pulmonary embolism. No saddle embolism. No evidence of right heart strain. EKG showed sinus tachycardia. Lab data showed WBC 10.0 hemoglobin 14.9 and platelets 226 and neutrophils 8.1 D-dimer 7.93 Sodium 135 potassium 4.6 chloride 105 bicarb is 28 BUN 22 and creatinine 0.89 and troponin level 0.146, 0.150 and 0.118 proBNP 3890 and COVID-19 PCR not detected. Patient states that she is fully vaccinated against COVID-19 virus and is planning to get what she does. Review of Systems Constitutional: Patient denies any fever or chills . No generalized weakness or weight loss. Abdomen: Patient denied nausea vomiting and diarrhea and abdominal pain. Cardiovascular: Patient denies any chest pain or short of breath no palpitations. Respiratory: Patient does have shortness of. No cough or sputum production. No leg swelling. Neurologic: Patient denied any numbness or tingling headache. Musculoskeletal: Patient denies any complaints of joint swelling or deformity. Skin: Negative Psychiatric: Negative Endocrine: No heat or cold intolerance. No recent weight gain. Genitourinary: No dysuria or hematuria. All other 14 point ROS negative except the above Past Medical History Past Medical History: Cancer, Osteoarthritis (OA) Additional Past Medical History / Comment(s): HX OF OVARIAN CA WITH CHEMOTHERAPY APPROX 3 YRS AGO (2010) History of Any Multi-Drug Resistant Organisms: None Reported Past Surgical History: Orthopedic Surgery Additional Past Surgical History / Comment(s): RIGHT ANKLE FX, ADDI ACHILLES TENDONS, ADDI CATARACT, right knee replacement Past Anesthesia/Blood Transfusion Reactions: No Reported Reaction Past Psychological History: Anxiety Smoking Status: Never smoker Past Alcohol Use History: Rare Past Drug Use History: None Reported - Past Family History Mother History Unknown: Yes Father History Unknown: Yes Sister(s) Family Medical History: Cancer Additional Family Medical History / Comment(s): breast Medications and Allergies Home Medications Medication Instructions Recorded Confirmed Type Multivitamins, Thera [Multivitamin 1 tab PO DAILY 04/07/14 09/18/21 History (formulary)] Bimatoprost [Lumigan .01% Ophth 1 drop BOTH EYES BID 04/14/17 09/18/21 History Soln] cycloSPORINE [Restasis] 1 applicator BOTH EYES HS 04/14/17 09/18/21 History Atorvastatin Calcium [Lipitor] 20 mg PO DAILY 09/18/21 09/18/21 History Baclofen [Lioresal] 10 mg PO BID PRN 09/18/21 09/18/21 History Citalopram Hydrobromide [CeleXA] 40 mg PO DAILY 09/18/21 09/18/21 History Magnesium 250 mg PO DAILY 09/18/21 09/18/21 History Meloxicam 15 mg PO DAILY 09/18/21 09/18/21 History Vitamin B Complex 1 cap PO DAILY 09/18/21 09/18/21 History hydroCHLOROthiazide [Hydrodiuril] 25 mg PO DAILY 09/18/21 09/18/21 History lisinopriL [Zestril] 20 mg PO BID 09/18/21 09/18/21 History Allergies Allergy/AdvReac Type Severity Reaction Status Date / Time adhesive Allergy Unknown Rash/Hives Verified 09/18/21 19:15 cefazolin Allergy Rash/Hives Verified 09/18/21 19:15 latex Allergy Rash/Hives Verified 09/18/21 19:15 chloraprep Allergy Rash/Hives Uncoded 09/18/21 18:05 smoke Allergy Unknown Uncoded 09/18/21 18:05 Physical Exam Vitals: Vital Signs Temp Pulse Pulse Resp BP BP Pulse Ox 09/19/21 11:08 90 18 09/19/21 10:58 90 18 09/19/21 08:00 98.9 F 80 18 108/70 91 L 09/19/21 06:29 77 18 112/73 91 L 09/19/21 03:37 97.9 F 85 16 104/70 91 L 09/19/21 00:22 84 19 100/78 92 L 09/18/21 17:51 98.8 F 102 H 22 120/84 96 Intake and Output 09/18/21 09/19/21 09/19/21 22:59 06:59 14:59 Intake Total 158.913 0 Balance 158.913 0 Intake: Intake, IV Titration 158.913 0 Amount Heparin Sod,Pork in 0.45% 158.913 0 NaCl 25,000 unit In 0.45 % NaCl 1 250ml.bag @ 18 UNITS/KG/HR 16.411 mls/hr IV .[id number] [facility] Rx#: [id number] Other: Weight 91.172 kg PHYSICAL EXAMINATION: Patient is lying in the bed comfortably, no acute distress, awake alert and oriented.. HEENT: Normocephalic. Neck is supple. Pupils reactive. Nostrils clear. Oral cavity is moist. Neck reveals no JVD, carotid bruits, or thyromegaly. CHEST EXAMINATION: Trachea is central. Symmetrical expansion. Lung madera clear to auscultation and percussion. CARDIAC: Normal S1, S2 with no gallops. No murmurs ABDOMEN: Soft. Bowel sounds normal. No organomegaly. No abdominal bruits. Extremities: reveal no edema. No clubbing or cyanosis Neurologically awake, alert, oriented x3 with well-coordinated movements. No focal deficits noted Skin: No rash or skin lesions. Psychiatric: Cooperative. Nonsuicidal Musculoskeletal: No joint swelling or deformity. Normal range of motion. Results CBC & Chem 7: 09/19/21 03:14 09/18/21 18:07 Labs: Abnormal Lab Results - Last 24 Hours (Table) 09/18/21 09/18/21 09/18/21 Range/Units 18:07 18:07 18:07 Neutrophils # 8.1 H (1.3-7.7) k/uL APTT (22.0-30.0) sec D-Dimer 7.93 H (<0.60) mg/L FEU Sodium 135 L (137-145) mmol/L Carbon Dioxide 20 L (22-30) mmol/L BUN 22 H (7-17) mg/dL Glucose 114 H (74-99) mg/dL Troponin I (0.000-0.034) ng/mL 09/18/21 09/18/21 09/19/21 Range/Units 18:07 21:53 00:47 Neutrophils # (1.3-7.7) k/uL APTT (22.0-30.0) sec D-Dimer (<0.60) mg/L FEU Sodium (137-145) mmol/L Carbon Dioxide (22-30) mmol/L BUN (7-17) mg/dL Glucose (74-99) mg/dL Troponin I 0.146 H* 0.150 H* 0.118 H* (0.000-0.034) ng/mL 09/19/21 09/19/21 Range/Units 03:14 08:47 Neutrophils # (1.3-7.7) k/uL APTT >200.0 H* 94.7 H (22.0-30.0) sec D-Dimer (<0.60) mg/L FEU Sodium (137-145) mmol/L Carbon Dioxide (22-30) mmol/L BUN (7-17) mg/dL Glucose (74-99) mg/dL Troponin I (0.000-0.034) ng/mL Thrombosis Risk Factor Assmnt - Choose All That Apply Each Factor Represents 1 point: Obesity (BMI >25) Other Risk Factors: Yes Each Risk Factor Represents 2 Points: Age 61-74 years Each Risk Factor Represents 3 Points: History of DVT/PE Other congenital or acquired thrombophilia - If yes, enter type in comment: No Thrombosis Risk Factor Assessment Total Risk Factor Score: 6 Thrombosis Risk Factor Assessment Level: High Risk Assessment and Plan Assessment: Acute hypoxic respiratory failure currently requiring 6 L oxygen via nasal cannula due to acute PE Acute pulmonary embolism likely provoked due to her long trips a month ago. Previous history of DVT status post anticoagulation for a month about 2 years ago. Elevated troponin level. No evidence of right heart strain on CTA chest History of ovarian cancer status post surgery and chemotherapy and is in remission since 2010 Hyperlipidemia Anxiety Obesity with BMI 38.0 Plan: Patient is being continued on IV heparin and bilateral lower extremity duplex scan was ordered. Oxygen supplementation via nasal cannula. 2D echocardiogram ordered to evaluate for right ventricular strain. Pulmonary and cardiology on board. Continue to follow closely. Discussed with patient and family at bedside in detail.
[2021-09-19] MEDS: ZOLPIDEM 5 MG TAB PO PRN (23:12)
[2021-09-20] MEDS: HEPARIN SOD,PORK IN 0.45% NACL 25,000 UNIT in 0.45% NACL 1 250ML.BAG IV SCH ×4 (02:53→18:27)
[2021-09-20] MEDS: IPRATROPIUM-ALBUTEROL 3 ML NEB INHALATION SCH ×4 (07:38→19:33)
[2021-09-20] MEDS: MELOXICAM 7.5 MG TAB PO SCH (08:20)
[2021-09-20] MEDS: hydroCHLOROthiazide 25 MG TAB PO SCH (08:20)
[2021-09-20] MEDS: ATORVASTATIN 20 MG TAB PO SCH (08:21)
[2021-09-20] MEDS: CITALOPRAM HYDROBROMIDE 20 MG TAB PO SCH (08:21)
[2021-09-20] MEDS: MAGNESIUM OXIDE 400 MG TAB PO SCH (08:21)
[2021-09-20] MEDS: lisinopriL 20 MG TAB PO SCH ×2 (08:21→20:12)
[2021-09-20] MEDS: MULTIVITAMINS, THERA 1 EACH TAB PO SCH (08:21)
[2021-09-20] MEDS: LATANOPROST 0.005% OPHTH DROPS 2.5 ML BTL BOTH EYES SCH ×2 (08:27→20:27)
[2021-09-20 08:41] LABS: Basophils % (A) 1 %; Eosinophils # (A) 0.3 k/uL (0-0.7); Eosinophils % (A) 4 %; HCT 41.5 % (34.0-46.0); HGB 13.8 gm/dL (11.4-16.0); Lymphocytes # (A) 2.9 k/uL (1.0-4.8); Lymphocytes % (A) 43 %; MCH 31.5 pg (25.0-35.0); MCHC 33.1 g/dL (31.0-37.0); MCV 95.3 fL (80.0-100.0); Mean Platelet Volume 7.8; Monocytes # (A) 0.2 k/uL (0-1.0); Monocytes % (A) 4 %; Neutrophils # (A) 3.2 k/uL (1.3-7.7); Neutrophils % (A) 47 %; Platelet Count 194 k/uL (150-450); RBC 4.36 m/uL (3.80-5.40); RDW 13.3 % (11.5-15.5); WBC 6.8 k/uL (3.8-10.6)
[2021-09-20 09:28] LABS: African American GFR (CKD) >90 (>60 ml/min/1.73 sqM); Anion Gap 5 mmol/L; Blood Urea Nitrogen 19 mg/dL (7-17); Calcium 9.4 mg/dL (8.4-10.2); Carbon Dioxide 26 mmol/L (22-30); Chloride 105 mmol/L (98-107); Glucose 90 mg/dL (74-99); Non-African American GFR(CKD) 84 (>60 ml/min/1.73 sqM); Sodium 136 mmol/L (137-145)
[2021-09-20 09:42] LABS: Potassium 4.5 mmol/L (3.5-5.1)
[2021-09-20] MEDS ORDERED: ALTEPLASE 10 MG in SODIUM CHLORIDE 0.9% 100 ML IV ONE ×4 (11:05)
[2021-09-20] MEDS ORDERED: LIDOCAINE 1% INJ 10MG/ML (20 ML MDV) ONE (11:13)
[2021-09-20] MEDS ORDERED: SODIUM CHLORIDE 0.9% 1,000 ML IV SCH ×2 (11:15)
[2021-09-20] MEDS ORDERED: fentaNYL (PF) 50 MCG/ML 2 ML AMP ONE (11:32)
[2021-09-20] MEDS ORDERED: diphenhydrAMINE 50 MG/ML 1 ML VIAL IVP ONE (11:35)
[2021-09-20] MEDS ORDERED: MIDAZOLAM 2 MG/2 ML VIAL IV ONE ×2 (11:35→11:50)
[2021-09-20] MEDS: fentaNYL (PF) 50 MCG/ML 2 ML AMP IV ONE ×2 (11:35→11:50)
[2021-09-20] MEDS ORDERED: diphenhydrAMINE 50 MG/ML 1 ML VIAL ONE (11:43)
[2021-09-20] MEDS ORDERED: LIDOCAINE 1% INJ 10MG/ML (20 ML MDV) SQ ONE (11:44)
[2021-09-20] MEDS ORDERED: IV FLUID CONTINUATION 800 ML IV ONE (11:50)
--- NOTE | 2021-09-20 13:13 | P.CARDCATH ---
Description of Procedure: PROCEDURES PERFORMED: Ekos catheter placement bilateral pulmonary arteries INDICATION: Submassive PE HISTORY: Patient is a pleasant 71-year-old female with a history of hypertension hyperlipidemia who has been complaining of shortness of breath over the last 2-3 weeks which was worsened September 13 and therefore presented to emergency department. Patient had a CTA 09/18/2021 which showed extensive bilateral upper and lower lobe pulmonary emboli. Echo 09/19/2021 showed EF 50-55% with mild to moderately enlarged right ventricle and moderately impaired RV function with RVSP of 46. Patient had elevated troponin of 0.14 as well as a elevated proBNP of 3890 and therefore secondary submassive pulmonary embolism with right heart s train and increase RVSP Ekos catheter was recommended. CONSENT:I have discussed the risks, benefits and alternative therapies for the above-mentioned procedure and for both sedation/analgesia as well as necessary blood product administration, if indicated, as they pertain to this patient. The patient has indicated understanding and acceptance of the risks and procedures discussed. PROCEDURE: After the risks, benefits and alternatives of the above mentioned procedure explained in detail with the patient, informed consent was obtained. Patient was taken to the catheterization lab and prepped and draped in usual fashion. 1% lidocaine was used to anesthetize the right femoral area. 2 6- [place] sheaths were placed in the right femoral vein using modified Seldinger technique and ultrasound guidance. Next using a 5-[place] FR for catheter and a 0.035 Glidewire the Glidewire was advanced the bilateral pulmonary arteries and into the middle lobe pulmonary arteries. The FR for catheter was exchanged for an Ekos catheter and then the Ekos was placed from the proximal pulmonary artery into each middle lobe. The sheath and catheters were sutured in place. The patient tolerated the procedure well. Patient was transported back to the post catheterization holding area in stable condition. Conscious Sedation: Patient was monitored under the direct supervision of vision of myself for conscious sedation using Versed and fentanyl for a total duration of 28 minutes FINAL IMPRESSION: 1. Submassive PE with right heart strain status post Ekos placement PLAN: 1. Continue TPA/heparin infusion as ordered and Ekos catheter for 10 hours. Catheter removal tomorrow morning.
[2021-09-20 16:45] LABS: Basophils % (A) 0 %; Eosinophils # (A) 0.2 k/uL (0-0.7); Eosinophils % (A) 4 %; HCT 41.4 % (34.0-46.0); HGB 13.8 gm/dL (11.4-16.0); Lymphocytes # (A) 2.2 k/uL (1.0-4.8); Lymphocytes % (A) 36 %; MCH 31.5 pg (25.0-35.0); MCHC 33.2 g/dL (31.0-37.0); MCV 94.8 fL (80.0-100.0); Monocytes # (A) 0.3 k/uL (0-1.0); Monocytes % (A) 4 %; Neutrophils # (A) 3.5 k/uL (1.3-7.7); Neutrophils % (A) 55 %; Platelet Count 185 k/uL (150-450); RBC 4.37 m/uL (3.80-5.40); RDW 13.2 % (11.5-15.5); WBC 6.3 k/uL (3.8-10.6)
[2021-09-20 16:55] LABS: Calcium 9.4 mg/dL (8.4-10.2); Potassium 4.8 mmol/L (3.5-5.1)
--- NOTE | 2021-09-20 17:16 | P.PN ---
Subjective Progress Note Date: 09/20/21 71-year-old female patient was hospitalized for worsening shortness of breath and further evaluation here in the emergency room revealed diagnosis of an acute pulmonary embolism. The patient had a road trip going to [place] on August 12 in August 19 and the patient drove back and forth on 2 of these occasions. The patient has been vaccinated for Covid 19 and she receives her booster on 08/29/2021. She came into the hospital because of worsening shortness of breath. She had no chest pain. No fever or chills. No nausea vomiting or emesis. No previous history of DVT or pulmonary embolism. She has previous history of ovarian cancer with previous total abdominal hysterectomy and oophorectomy and the patient was followed by systemic chemotherapy and she has been in remission since 2010. She also has had previous history of DVT in the right lower extremity and the patient had a significant evaluation for a month back and 2 years ago before Covid 19 era. I reviewed the CAT scan of the chest and the patient has evidence of bilateral pulmonary embolism. In fact, the patient had extensive bilateral upper and lower lobe pulmonary emboli. No saddle embolism. No evidence of any right heart strain. D-dimer was at 7.93. Normal renal function. Normal electrolytes. The white cell count was at 10.0 with hemoglobin 14.9 and platelets of 226. Covid 19 testing was negative. ProBNP level was 3890 and a troponin was 0.14. The patient currently is on oxygen on 5 L per minute nasal cannula. She is on IV heparin. PTT is therapeutic. Hemodynamically stable. No significant sinus tachycardia. She is afebrile for now. No significant swelling in the lower extremities. On 09/20/2021 patient seen in follow-up after having that equals procedure for bilateral pulmonaryemboli. EKOS 09/19/2021 showed EF of 50-55% with moderately enlarged right ventricle and moderately impaired RV function with right ventricle systolic pressure of 46. Patient also had elevated troponin of 0.14, and elevated proBNP of 3890, and was diagnosed with submassive pulmonary embolism with right heart strain. Patient tolerated procedure very well, she was transferred to the intensive care unit after the procedure. She is awake and alert, in no acute distress, breathing comfortably, she is currently on 6l/min of oxygen pulse ox is 90-93%, no complaints of chest pain, no cough, no hemoptysis. She is in sinus mechanism, she is not on any vasoactive drips, she is on heparin infusion, she is on 0.9 at a rate of 50 ML per hour. Has alteplase infusing at 1 mg per hour. She is in reverse Trendelenburg position, she is trying to eat dinner, lung sounds are clear to auscultation, skin is warm and dry and intact, distal pulses are palpable. Lower extremity Dopplers were negative for DVT Objective - Vital Signs Vital signs: Vital Signs Temp 98.2 F 09/20/21 16:00 Pulse 77 09/20/21 16:20 Resp 17 09/20/21 16:20 BP 86/60 09/20/21 16:10 Pulse Ox 91 L 09/20/21 16:20 Intake & Output 09/19/21 09/20/21 09/20/21 18:59 06:59 18:59 Intake Total 209.087 682.569 168.197 Output Total 200 550 0 Balance 9.087 132.569 168.197 Weight 94 kg Intake: IV 100 Intake, IV Titration 91.087 82.569 68.197 Amount Heparin Sod,Pork in 0.45% 91.087 82.569 68.197 NaCl 25,000 unit In 0.45 % NaCl 1 250ml.bag @ 18 UNITS/KG/HR 16.411 mls/hr IV .[id number] [facility] Rx#: [id number] Oral 118 600 Output: Urine 200 550 0 Other: # Voids 1 1 - Exam GENERAL EXAM: Alert, pleasant, 71-year-old white female, resting comfortably in bed, in the intensive care unit in the reverse Trendelenburg position, currently on 6 L of oxygen the pulse ox of 90% comfortable in no apparent distress. HEAD: Normocephalic/atraumatic. EYES: Normal reaction of pupils, equal size. Conjunctiva pink, sclera white. NOSE: Clear with pink turbinates. THROAT: No erythema or exudates. NECK: No masses, no JVD, no thyroid enlargement, no adenopathy. CHEST: No chest wall deformity. Symmetrical expansion. LUNGS: Equal air entry with no crackles, wheeze, rhonchi or dullness. CVS: Regular rate and rhythm, normal S1 and S2, no gallops, no murmurs, no rubs ABDOMEN: Soft, nontender. No hepatosplenomegaly, normal bowel sounds, no guarding or rigidity. EXTREMITIES: No clubbing, no edema, no cyanosis, 2+ pulses and upper and lower extremities. MUSCULOSKELETAL: Muscle strength and tone normal. Right groin EKOS catheter in place, clean dry and intact, soft, distal pulses are palpable, alteplase is infusing through a catheter at 1 mg per hour. SPINE: No scoliosis or deformity SKIN: No rashes CENTRAL NERVOUS SYSTEM: Alert and oriented -3. No focal deficits, tone is normal in all 4 extremities. PSYCHIATRIC: Alert and oriented -3. Appropriate affect. Intact judgment and insight. - Labs CBC & Chem 7: 09/20/21 16:12 09/20/21 16:12 Labs: Abnormal Lab Results - Last 24 Hours (Table) 09/19/21 09/20/21 09/20/21 Range/Units 17:18 00:53 07:59 APTT 86.8 H 69.8 H (22.0-30.0) sec Sodium 136 L (137-145) mmol/L BUN 19 H (7-17) mg/dL Glucose (74-99) mg/dL 09/20/21 09/20/21 Range/Units 07:59 16:12 APTT 57.5 H (22.0-30.0) sec Sodium (137-145) mmol/L BUN (7-17) mg/dL Glucose 109 H (74-99) mg/dL Assessment and Plan Plan: Assessment: 1 acute bilateral pulmonary embolism with secondary shortness of breath and hypoxemia and the patient is currently on 5 L about 2 by nasal cannula. There is some mild elevation of the troponin and there may be some strain pattern on the echocardiogram. The patient was driving back and forth to [place] and this could've been a provoking event. Nevertheless, the patient has had previous history of DVTs in the right lower extremity approximately 2 years ago. As such, underlying hypercoagulability need to be considered. Echo 09/19/2021 showed EF 50-55% with mild to moderately enlarged right ventricle and moderately impaired RV function with RVSP of 46. Patient had elevated troponin of 0.14 as well as a elevated proBNP of 3890 and therefore secondary submassive pulmonary embolism with right heart strain and increase RVSP Ekos catheter was recommended which was performed today on 09/20/2021 2 acute hypoxic respiratory failure secondary to above 3 shortness of breath secondary to above 4 troponin leak secondary to above 5 previous history of DVT of the right lower extremity back in 2019 6 ovarian cancer with previous debulking surgery, abdominal hysterectomy and also recommended the patient has received systemic chemotherapy and the patient has been in remission since 2010 7 hyperlipidemia 8 anxiety Plan: Continue alteplase infusion per cardiology Is also on heparin infusion Monitoring in ICU Hemodynamically patient is stable Follow-up labs in the morning Continue neurovascular assessment and at his neurological assessment Coagulation profile including PTT, fibrinogen level Basic labs in the morning CBC and BMP Starting the patient on oral anticoagulation in the morning I performed a history & physical examination of the patient and discussed their management with my nurse practitioner, Johnna Arechiga. I reviewed the nurse practitioner's note and agree with the documented findings and plan of care. Lung sounds are positive for clear breath sounds throughout the lung madera. The findings and the impression was discussed with the patient. I attest to the documentation by the nurse practitioner. Time with Patient: Greater than 30
[2021-09-20 17:24] LABS: Partial Thromboplastin Time 27.9 sec (22.0-30.0); Prothrombin Time 10.3 sec (9.0-12.0)
[2021-09-20] MEDS: SODIUM CHLORIDE 0.9% 1,000 ML IV SCH ×2 (18:26)
[2021-09-20] MEDS: cycloSPORINE 0.05% OPHTH 0.4 ML DROPERETTE BOTH EYES SCH (20:27)
--- NOTE | 2021-09-20 22:35 | P.PN ---
Subjective Progress Note Date: 09/20/21 Principal diagnosis: Acute pulmonary embolism Patient is a 71-year-old female with a known history of ovarian cancer status post chemotherapy currently in remission, osteoarthritis and anxiety presents to ER due to complaints of worsening shortness breath. Patient has been symptoms since September 11 of this month with Shortness of breath and was recommended to wear primary care physician to go to ER. COVID-19 test was negative Patient does have history of right lower extremity DVT and was on anticoagulation about 2 years ago. Currently not on any blood thinners.Denies any complaints of chest pain. No leg swelling. No calf tenderness. No fever no chills. No cough or sputum production. Denies any pleuritic pain. Apparently patient went to [place] on a road trip twice and came back to [place] around August 22, 2021. Chest x-ray on admission showed no acute cardiopulmonary disease. Borderline cardiomegaly. Heart appears increasing compared to old exam. CT angiogram of the chest showed bilateral extensive upper and lower lobe pulmonary embolism. No saddle embolism. No evidence of right heart strain. EKG showed sinus tachycardia. Lab data showed WBC 10.0 hemoglobin 14.9 and platelets 226 and neutrophils 8.1 D-dimer 7.93 Sodium 135 potassium 4.6 chloride 105 bicarb is 28 BUN 22 and creatinine 0.89 and troponin level 0.146, 0.150 and 0.118 proBNP 3890 and COVID-19 PCR not detected. Patient states that she is fully vaccinated against COVID-19 virus and is planning to get what she does. 09/20/2021 Patient is currently in MICU. Admitted to hospital due to bilateral pulmonary embolism. Patient is undergoing EKOS today. 2D echocardiogram showed moderately enlarged right ventricle and moderately impaired RV function with right ventricular sy stolic pressure of 46. Patient was diagnosed with submassive pulmonary embolism with right heart strain. Transferred to MICU postprocedure. Currently lying in the bed awake alert 1x3. Requiring 6 L oxygen via nasal cannula. No complaints of chest pain. No cough or sputum production. No fever no chills. Patient is being continued on heparin drip. Laboratory showed WBC 6.3 hemoglobin 13.8 and platelets 185 sodium 137 potassium 4.8 chloride 105 bicarb 26 BUN 19 and creatinine 0.73 and calcium 9.4 Venous duplex scan is negative for DVT. Current medications reviewed. Objective - Vital Signs Vital signs: Vital Signs Temp 97.5 F L 09/20/21 08:15 Pulse 76 09/20/21 08:15 Resp 16 09/20/21 08:15 BP 117/73 09/20/21 08:15 Pulse Ox 92 L 09/20/21 08:15 Intake & Output 09/19/21 09/20/21 09/20/21 18:59 06:59 18:59 Intake Total 209.087 682.569 168.197 Output Total 200 550 Balance 9.087 132.569 168.197 Weight 94 kg Intake: IV 100 Intake, IV Titration 91.087 82.569 68.197 Amount Heparin Sod,Pork in 0.45% 91.087 82.569 68.197 NaCl 25,000 unit In 0.45 % NaCl 1 250ml.bag @ 18 UNITS/KG/HR 16.411 mls/hr IV .[id number] [facility] Rx#: [id number] Oral 118 600 Output: Urine 200 550 Other: # Voids 1 1 - Exam PHYSICAL EXAMINATION: Patient is lying in the bed comfortably, no acute distress, awake alert and oriented.. HEENT: Normocephalic. Neck is supple. Pupils reactive. Nostrils clear. Oral cavity is moist. Neck reveals no JVD, carotid bruits, or thyromegaly. CHEST EXAMINATION: Trachea is central. Symmetrical expansion. Lung madera clear to auscultation and percussion. CARDIAC: Normal S1, S2 with no gallops. No murmurs ABDOMEN: Soft. Bowel sounds normal. No organomegaly. No abdominal bruits. Extremities: reveal no edema. No clubbing or cyanosis Neurologically awake, alert, oriented x3 with well-coordinated movements. No focal deficits noted Skin: No rash or skin lesions. Psychiatric: Cooperative. Nonsuicidal Musculoskeletal: No joint swelling or deformity. Normal range of motion. - Labs CBC & Chem 7: 09/20/21 16:12 09/20/21 16:12 Labs: Abnormal Lab Results - Last 24 Hours (Table) 09/19/21 09/20/21 09/20/21 Range/Units 17:18 00:53 07:59 APTT 86.8 H 69.8 H (22.0-30.0) sec Sodium 136 L (137-145) mmol/L BUN 19 H (7-17) mg/dL 09/20/21 Range/Units 07:59 APTT 57.5 H (22.0-30.0) sec Sodium (137-145) mmol/L BUN (7-17) mg/dL Assessment and Plan Assessment: Acute hypoxic respiratory failure currently requiring 6 L oxygen via nasal cannula due to acute PE Acute pulmonary embolism likely provoked due to her long trips a month ago. Submassive pulmonary embolism with right ventricular strain and enlargement. Status post EKOS follow level 1121 Previous history of DVT status post anticoagulation for a month about 2 years ago. Elevated troponin level. No evidence of right heart strain on CTA chest History of ovarian cancer status post surgery and chemotherapy and is in remission since 2010 Hyperlipidemia Anxiety Obesity with BMI 38.0 Plan: Patient is in MICU. Status post EKOS. Patient is being continued on IV heparin and bilateral lower extremity duplex scan Is negative for DVT. . Oxygen supplementation via nasal cannula. Vascular surgery, cardiology and pulmonary is on board. Continue to follow closely. Time with Patient: Greater than 30
[2021-09-20] MEDS: ZOLPIDEM 5 MG TAB PO PRN (23:48)
[2021-09-21] MEDS: HEPARIN SOD,PORK IN 0.45% NACL 25,000 UNIT in 0.45% NACL 1 250ML.BAG IV SCH ×2 (02:33→14:09)
[2021-09-21 06:36] LABS: Basophils % (A) 0 %; Eosinophils # (A) 0.3 k/uL (0-0.7); Eosinophils % (A) 5 %; HCT 37.9 % (34.0-46.0); HGB 12.6 gm/dL (11.4-16.0); Lymphocytes # (A) 1.7 k/uL (1.0-4.8); Lymphocytes % (A) 29 %; MCH 31.2 pg (25.0-35.0); MCHC 33.3 g/dL (31.0-37.0); MCV 93.9 fL (80.0-100.0); Mean Platelet Volume 7.8; Monocytes # (A) 0.3 k/uL (0-1.0); Monocytes % (A) 5 %; Neutrophils # (A) 3.5 k/uL (1.3-7.7); Neutrophils % (A) 60 %; Platelet Count 155 k/uL (150-450); RBC 4.04 m/uL (3.80-5.40); WBC 5.8 k/uL (3.8-10.6)
[2021-09-21 06:52] LABS: Calcium 8.9 mg/dL (8.4-10.2); Potassium 4.4 mmol/L (3.5-5.1); Total Bilirubin 1.2 mg/dL (0.2-1.3); Total Protein 5.5 g/dL (6.3-8.2)
[2021-09-21] MEDS: MELOXICAM 7.5 MG TAB PO SCH (08:17)
[2021-09-21] MEDS: lisinopriL 20 MG TAB PO SCH (08:18)
[2021-09-21] MEDS: MULTIVITAMINS, THERA 1 EACH TAB PO SCH (08:18)
[2021-09-21] MEDS: MAGNESIUM OXIDE 400 MG TAB PO SCH (08:18)
[2021-09-21] MEDS: CITALOPRAM HYDROBROMIDE 20 MG TAB PO SCH (08:18)
[2021-09-21] MEDS: hydroCHLOROthiazide 25 MG TAB PO SCH (08:18)
[2021-09-21] MEDS: ATORVASTATIN 20 MG TAB PO SCH (08:18)
[2021-09-21] MEDS: LATANOPROST 0.005% OPHTH DROPS 2.5 ML BTL BOTH EYES SCH ×2 (08:19→19:51)
[2021-09-21] MEDS: IPRATROPIUM-ALBUTEROL 3 ML NEB INHALATION SCH ×3 (08:37→19:53)
[2021-09-21] MEDS: APIXABAN 5 MG TAB PO SCH ×2 (09:02→19:51)
--- NOTE | 2021-09-21 09:17 | P.PN ---
Subjective Progress Note Date: 09/21/21 09/21/2021, the patient is doing much better. This morning, the patient completed her intra-arterial thrombolytic therapy and the patient is doing extremely well. The catheter is a been removed and the patient is currently having a pulse ox of 88-90% on room air oxygen. She was also started on Eliquis 10 mg by mouth twice a day. Doppler of the lower extremity is a been negative. She remains hemodynamically stable. Her mean arterial pressure is 70. White cell count is at 5.8. Platelet count is at 155. Electrodes are all within normal limits. No other significant complaints. No chest pain. No pleurisy. No hemoptysis. She has adequate pulses in lower extremities. Objective - Vital Signs Vital signs: Vital Signs Temp 98.2 F 09/21/21 08:00 Pulse 85 09/21/21 09:00 Resp 17 09/21/21 09:00 BP 85/65 09/21/21 09:00 Pulse Ox 88 L 09/21/21 09:00 Intake & Output 09/20/21 09/21/21 09/21/21 18:59 06:59 18:59 Intake Total 168.197 Output Total 0 1200 1300 Balance 168.197 -1200 -1300 Weight 93.2 kg Intake: IV 100 Intake, IV Titration 68.197 Amount Heparin Sod,Pork in 0.45% 68.197 NaCl 25,000 unit In 0.45 % NaCl 1 250ml.bag @ 18 UNITS/KG/HR 16.411 mls/hr IV .[id number] [facility] Rx#: [id number] Output: Urine 0 1200 1300 Other: # Voids 1 0 1 - Exam The patient appeared well nourished and normally developed. Vital signs as documented. Head exam is unremarkable. No scleral icterus or corneal arcus noted. Neck is without jugular venous distension, thyromegaly, or carotid bruits. Carotid upstrokes are brisk bilaterally. Lungs are clear to auscultation and percussion. Cardiac exam reveals the PMI to be normally sized and situated. Rhythm is regular. First and second heart sounds normal. No murmurs, rubs or gallops. Abdominal exam reveals normal bowel sounds, no masses, no organomegaly and no aortic enlargement. Extremities are nonedematous and both femoral and pe leticia pulses are normal.Examination of the skin revealed no evidence of significant rashes, suspicious appearing nevi or other concerning lesions.Neurologically, the patient is awake and alert and the patient does not have any focal neurological deficit. Cranial nerves are essentially intact. - Labs CBC & Chem 7: 09/21/21 05:23 09/21/21 05:23 Labs: Abnormal Lab Results - Last 24 Hours (Table) 09/20/21 09/20/21 09/21/21 Range/Units 07:59 16:12 05:23 Sodium 136 L 136 L (137-145) mmol/L Chloride 108 H (98-107) mmol/L BUN 19 H (7-17) mg/dL Glucose 109 H (74-99) mg/dL Total Protein 5.5 L (6.3-8.2) g/dL Albumin 3.0 L (3.5-5.0) g/dL Assessment and Plan Plan: 1 acute bilateral pulmonary embolism with secondary shortness of breath and hypoxemia and the patient is currently on room air oxygen and the patient completed intra-arterial thrombolytic therapy with EKOS . Doppler of the lower extremity was negative. Oxidation is improved and the patient is currently having her pulse ox 88-90% on room in oxygen 2 acute hypoxic respiratory failure secondary to above, improved 3 shortness of breath secondary to above 4 troponin leak secondary to above 5 previous history of DVT of the right lower extremity back in 2020 6 ovarian cancer with previous debulking surgery, abdominal hysterectomy and also recommended the patient has received systemic chemotherapy and the patient has been in remission since 2010 7 hyperlipidemia 8 anxiety Plan proceed with oral Eliquis 10 mg by mouth twice a day Doppler of the lower extremity was negative This oxygen flow to maintain a saturation above 90% and monitor the oxygenation over the next 24 hours Catheters have been removed and the patient has adequate pulses in lower extr emity is bilaterally Chest and the patient out of the intensive care unit May need to stay in the hospital for monitoring for another 24 hours. This will be a long-term anticoagulation with Eliquis due to the recurrent nature of her VTE
--- NOTE | 2021-09-21 11:36 | P.PN ---
Subjective Progress Note Date: 09/21/21 This is 71-year-old female was admitted to the hospital with multiple pulmonary emboli. Patient had EKOS procedure and had thrombolytic therapy. The catheter was removed this morning patient is feeling much better. Her oxygen saturation is about 90% on room air. No arrhythmias groin is soft. Lungs are clear. Heart is regular. No complaints of chest pain, cough or hemoptysis. Patient's activities to be increased. Possible discharge within next 24-48 hours Objective - Vital Signs Vital signs: Vital Signs Temp 98.2 F 09/21/21 08:00 Pulse 85 09/21/21 09:00 Resp 17 09/21/21 09:00 BP 85/65 09/21/21 09:00 Pulse Ox 88 L 09/21/21 09:00 Intake & Output 09/20/21 09/21/21 09/21/21 18:59 06:59 18:59 Intake Total 168.197 Output Total 0 1200 1300 Balance 168.197 -1200 -1300 Weight 93.2 kg Intake: IV 100 Intake, IV Titration 68.197 Amount Heparin Sod,Pork in 0.45% 68.197 NaCl 25,000 unit In 0.45 % NaCl 1 250ml.bag @ 18 UNITS/KG/HR 16.411 mls/hr IV .[id number] [facility] Rx#: [id number] Output: Urine 0 1200 1300 Other: # Voids 1 0 1 - Exam GENERAL EXAM: Patient is alert and oriented and doesn't appear to be in any acute distress HEENT: Normocephalic. Normal reaction of pupils, equal size, normal range of extraocular motion. No erythema or exudates in the throat. NECK: No masses, no nuchal rigidity. CHEST: No chest wall deformity. LUNGS: Equal air entry with no crackles or wheeze. HEART: S1 and S2 normal with no audible mumurs or gallops. Regular rhythm, femorals equal on both sides.. ABDOMEN: No hepatosplenomegaly, normal bowel sounds, no guarding or rigidity. SKIN: No rashes CENTRAL NERVOUS SYSTEM: No focal deficits. EXTREMITIES: No cyanosis, clubbing or edema. Groin is soft and the puncture site - Labs CBC & Chem 7: 09/21/21 05:23 09/21/21 05:23 Labs: Abnormal Lab Results - Last 24 Hours (Table) 09/20/21 09/21/21 Range/Units 16:12 05:23 Sodium 136 L (137-145) mmol/L Chloride 108 H (98-107) mmol/L Glucose 109 H (74-99) mg/dL Total Protein 5.5 L (6.3-8.2) g/dL Albumin 3.0 L (3.5-5.0) g/dL Assessment and Plan (1) Elevated brain natriuretic peptide (BNP) level Current Visit: Yes Status: Acute Code(s): R79.89 - OTHER SPECIFIED ABNORMAL FINDINGS OF BLOOD CHEMISTRY SNOMED Code(s): 523269529 (2) Elevated troponin Current Visit: Yes Status: Acute Code(s): R77.8 - OTHER SPECIFIED ABNORMALITIES OF PLASMA PROTEINS SNOMED Code(s): 047519788 (3) Pulmonary embolism Current Visit: Yes Status: Acute Code(s): I26.99 - OTHER PULMONARY EMBOLISM WITHOUT ACUTE COR PULMONALE SNOMED Code(s): 60127735 Plan: Patient is feeling much better. Increase activity . Switch to oral Eliquis 10 mg by mouth twice a day.
[2021-09-21] MEDS: SODIUM CHLORIDE 0.9% 1,000 ML IV SCH ×2 (14:09)
[2021-09-21] MEDS: cycloSPORINE 0.05% OPHTH 0.4 ML DROPERETTE BOTH EYES SCH (19:52)
[2021-09-21] MEDS: ZOLPIDEM 5 MG TAB PO PRN (23:05)
[2021-09-22] MEDS: IPRATROPIUM-ALBUTEROL 3 ML NEB INHALATION SCH ×3 (06:59→19:09)
[2021-09-22] MEDS: MULTIVITAMINS, THERA 1 EACH TAB PO SCH (09:23)
[2021-09-22] MEDS: APIXABAN 5 MG TAB PO SCH ×2 (09:23→20:16)
[2021-09-22] MEDS: MAGNESIUM OXIDE 400 MG TAB PO SCH (09:23)
[2021-09-22] MEDS: CITALOPRAM HYDROBROMIDE 20 MG TAB PO SCH (09:23)
[2021-09-22] MEDS: ATORVASTATIN 20 MG TAB PO SCH (09:23)
[2021-09-22] MEDS: lisinopriL 10 MG TAB PO SCH ×2 (09:23→20:16)
[2021-09-22] MEDS: MELOXICAM 7.5 MG TAB PO SCH (09:23)
[2021-09-22] MEDS: hydroCHLOROthiazide 25 MG TAB PO SCH (09:24)
[2021-09-22] MEDS: LATANOPROST 0.005% OPHTH DROPS 2.5 ML BTL BOTH EYES SCH ×2 (09:24→20:16)
--- NOTE | 2021-09-22 09:58 | P.PN ---
Subjective Progress Note Date: 09/22/21 09/21/2021, the patient is doing much better. This morning, the patient completed her intra-arterial thrombolytic therapy and the patient is doing extremely well. The catheter is a been removed and the patient is currently having a pulse ox of 88-90% on room air oxygen. She was also started on Eliquis 10 mg by mouth twice a day. Doppler of the lower extremity is a been negative. She remains hemodynamically stable. Her mean arterial pressure is 70. White cell count is at 5.8. Platelet count is at 155. Electrodes are all within normal limits. No other significant complaints. No chest pain. No pleurisy. No hemoptysis. She has adequate pulses in lower extremities. 09/22/2021, the patient is currently transferred out of the intensive care unit and she is currently on a medical floor. She is currently on oral Eliquis and she is doing well. Hemodynamically she is afebrile. She was started on a dose of 10 mg by mouth twice a day. His oxygenation is stable and currently she is on oxygen at 3 L with a pulse ox of 94% on this could be further weaned down. No chest pain. No pleurisy. No hemoptysis. No signs of any bleeding. No other place. The vascular surgery insertion site and her groin area is clean and there is no evidence of any bleeding at that site. The patient is doing well for now. She has no specific complaints. She was transferred out of the intensive care unit yesterday. Her current hemoglobin is still pending. Objective - Vital Signs Vital signs: Vital Signs Temp 98.0 F 09/22/21 09:17 Pulse 73 09/22/21 09:17 Resp 17 09/22/21 09:17 BP 118/69 09/22/21 09:17 Pulse Ox 94 L 09/22/21 09:17 Intake & Output 09/21/21 09/22/21 09/22/21 18:59 06:59 18:59 Intake Total 118 600 Output Total 1300 Balance -1182 600 Weight 92 kg Intake: Oral 118 600 Output: Urine 1300 Other: # Voids 1 1 - Exam The patient appeared well nourished and normally developed. Vital signs as documented. Head exam is unremarkable. No scleral icterus or corneal arcus noted. Neck is without jugular venous distension, thyromegaly, or carotid bruits. Carotid upstrokes are brisk bilaterally. Lungs are clear to auscultation and percussion. Cardiac exam reveals the PMI to be normally sized and situated. Rhythm is regular. First and second heart sounds normal. No murmurs, rubs or gallops. Abdominal exam reveals normal bowel sounds, no masses, no organomegaly and no aortic enlargement. Extremities are nonedematous and both femoral and pedal pulses are normal.Examination of the skin revealed no evidence of significant rashes, suspicious appearing nevi or other concerning lesions.Neurologically, the patient is awake and alert and the patient does not have any focal neurological deficit. Cranial nerves are essentially intact. - Labs CBC & Chem 7: 09/21/21 05:23 09/21/21 05:23 Assessment and Plan Plan: 1 acute bilateral pulmonary embolism with secondary shortness of breath and hypoxemia and the patient is currently on room air oxygen and the patient completed intra-arterial thrombolytic therapy with EKOS . Doppler of the lower extremity was negative. Oxidation is improved and the patient is currently having her pulse ox 88-90% on room in oxygen and I saw this patient this morning and she was feeling well and her pulse ox was 96% liters of oxygen by nasal cannula. I took her off the oxygen to evaluate her oxygenation on room air. 2 acute hypoxic respiratory failure secondary to above, improved 3 shortness of breath secondary to above 4 troponin leak secondary to above 5 previous history of DVT of the right lower extremity back in 2019 6 ovarian cancer with previous debulking surgery, abdominal hysterectomy and also recommended the patient has received systemic chemotherapy and the patient has been in remission since 2010 7 hyperlipidemia 8 anxiety Plan Continue oral Eliquis 10 mg by mouth twice a day Doppler of the lower extremity was negative This oxygen flow to maintain a saturation above 90% and monitor the oxygenation over the next 24 hours , to this patient off the oxygen and I will going to recheck her within 30 minutes to make sure that the levels above 90%. There is a possibility that she may need home O2. Catheters have been removed and the patient has adequate pulses in lower extremity is bilaterally Chest and the patient out of the intensive care unit May need to stay in the hospital for monitoring for another 24 hours. This will be a long-term anticoagulation with Eliquis due to the recurrent nature of her VTE
--- NOTE | 2021-09-22 12:12 | P.PN ---
Subjective Progress Note Date: 09/22/21 HISTORY OF PRESENT ILLNESS This is 71-year-old female was admitted to the hospital with multiple pulmonary emboli. Patient had EKOS procedure and had thrombolytic therapy. The catheter was removed yesterday. Patient is maintained on eliquis. 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 She does not oxygen therapy pulse ox is 94% on 3 L nasal cannula. No complaints of chest pain, cough or hemoptysis. PHYSICAL EXAMINATION Gen: This is a 71-year-old female, resting in bed in no acute distress . VS: Heart rate in the 70s, blood pressure 118/69, afebrile. HEENT: Head is atraumatic, normocephalic. Pupils equal, round. Sclerae is anicteric. NECK: Supple. No JVD. No lymphadenopathy. No thyromegaly. LUNGS: Clear to auscultation. No wheezes or rhonchi. No intercostal retractions. HEART: Regular rate and rhythm. No murmur. Regular rhythm. Femorals equal on both sides. ABDOMEN: Soft. Bowel sounds are present. No masses. No tenderness. EXTREMITIES: No pedal edema. No calf tenderness. Groin is soft and puncture site. NEUROLOGICAL: Patient is awake, alert and oriented x3. Cranial nerves 2 through 12 are grossly intact. ASSESSMENT Acute pulmonary embolism Elevated troponin secondary to PE Acute hypoxic respiratory failure Hypertension Hyperlipidemia History of right-sided DVT. PLAN Patient is cleared for discharge from cardiology Continue eliquis. Follow-up outpatient in one week. Thank you kindly for this consultation. Nurse practitioner note has been reviewed, I agree with documented findings and plan of care. Patient was seen and examined. Objective - Vital Signs Vital signs: Vital Signs Temp 98.0 F 09/22/21 09:17 Pulse 73 09/22/21 09:17 Resp 17 09/22/21 09:17 BP 118/69 09/22/21 09:17 Pulse Ox 94 L 09/22/21 09:17 Intake & Output 09/21/21 09/22/21 09/22/21 18:59 06:59 18:59 Intake Total 118 600 Output Total 1300 Balance -1182 600 Weight 92 kg Intake: Oral 118 600 Output: Urine 1300 Other: # Voids 1 1 - Labs CBC & Chem 7: 09/21/21 05:23 09/21/21 05:23
[2021-09-22] MEDS: SODIUM CHLORIDE 0.9% 1,000 ML IV SCH ×2 (12:19)
[2021-09-22] MEDS: HEPARIN SOD,PORK IN 0.45% NACL 25,000 UNIT in 0.45% NACL 1 250ML.BAG IV SCH ×2 (12:19)
[2021-09-22] MEDS: cycloSPORINE 0.05% OPHTH 0.4 ML DROPERETTE BOTH EYES SCH (20:16)
[2021-09-22] MEDS: ZOLPIDEM 5 MG TAB PO PRN (23:20)
--- NOTE | 2021-09-23 00:17 | P.PN ---
Subjective Progress Note Date: 09/21/21 Principal diagnosis: Acute pulmonary embolism Patient is a 71-year-old female with a known history of ovarian cancer status post chemotherapy currently in remission, osteoarthritis and anxiety presents to ER due to complaints of worsening shortness breath. Patient has been symptoms since September 11 of this month with Shortness of breath and was recommended to wear primary care physician to go to ER. COVID-19 test was negative Patient does have history of right lower extremity DVT and was on anticoagulation about 2 years ago. Currently not on any blood thinners.Denies any complaints of chest pain. No leg swelling. No calf tenderness. No fever no chills. No cough or sputum production. Denies any pleuritic pain. Apparently patient went to [place] on a road trip twice and came back to [place] around August 22, 2021. Chest x-ray on admission showed no acute cardiopulmonary disease. Borderline cardiomegaly. Heart appears increasing compared to old exam. CT angiogram of the chest showed bilateral extensive upper and lower lobe pulmonary embolism. No saddle embolism. No evidence of right heart strain. EKG showed sinus tachycardia. Lab data showed WBC 10.0 hemoglobin 14.9 and platelets 226 and neutrophils 8.1 D-dimer 7.93 Sodium 135 potassium 4.6 chloride 105 bicarb is 28 BUN 22 and creatinine 0.89 and troponin level 0.146, 0.150 and 0.118 proBNP 3890 and COVID-19 PCR not detected. Patient states that she is fully vaccinated against COVID-19 virus and is planning to get what she does. 09/20/2021 Patient is currently in MICU. Admitted to hospital due to bilateral pulmonary embolism. Patient is undergoing EKOS today. 2D echocardiogram showed moderately enlarged right ventricle and moderately impaired RV function with right ventricular sy stolic pressure of 46. Patient was diagnosed with submassive pulmonary embolism with right heart strain. Transferred to MICU postprocedure. Currently lying in the bed awake alert 1x3. Requiring 6 L oxygen via nasal cannula. No complaints of chest pain. No cough or sputum production. No fever no chills. Patient is being continued on heparin drip. Laboratory showed WBC 6.3 hemoglobin 13.8 and platelets 185 sodium 137 potassium 4.8 chloride 105 bicarb 26 BUN 19 and creatinine 0.73 and calcium 9.4 Venous duplex scan is negative for DVT. 09/21/2021 Patient is currently in MICU. Denied any complaints of chest pain. Shortness of breath is better. Patient completed EKOS procedure. Currently requiring it 2 L oxygen. Heparin has been discontinued and patient was started on Eliquis starter dose. No complaints of fever or chills. Hemodynamically stable. No headache or dizziness or lightheadedness. Patient is being transported to select care unit today. Current medications reviewed. Objective - Vital Signs Vital signs: Vital Signs Temp 97.6 F 09/21/21 20:00 Pulse 68 09/21/21 20:06 Resp 16 09/21/21 20:00 BP 120/66 09/21/21 20:00 Pulse Ox 94 L 09/21/21 20:00 Intake & Output 09/21/21 09/21/21 09/22/21 06:59 18:59 06:59 Intake Total 118 600 Output Total 1200 1300 Balance -1200 -1182 600 Weight 93.2 kg Intake: Oral 118 600 Output: Urine 1200 1300 Other: # Voids 0 1 - Exam PHYSICAL EXAMINATION: Patient is lying in the bed comfortably, no acute distress, awake alert and oriented.. HEENT: Normocephalic. Neck is supple. Pupils reactive. Nostrils clear. Oral cavity is moist. Neck reveals no JVD, carotid bruits, or thyromegaly. CHEST EXAMINATION: Trachea is central. Symmetrical expansion. Lung madera clear to auscultation and percussion. CARDIAC: Normal S1, S2 with no gallops. No murmurs ABDOMEN: Soft. Bowel sounds normal. No organomegaly. No abdominal bruits. Extremities: reveal no edema. No clubbing or cyanosis Neurologically awake, alert, oriented x3 with well-coordinated movements. No focal deficits noted Skin: No rash or skin lesions. Psychiatric: Cooperative. Nonsuicidal Musculoskeletal: No joint swelling or deformity. Normal range of motion. - Labs CBC & Chem 7: 09/21/21 05:23 09/21/21 05:23 Labs: Abnormal Lab Results - Last 24 Hours (Table) 09/21/21 Range/Units 05:23 Sodium 136 L (137-145) mmol/L Chloride 108 H (98-107) mmol/L Total Protein 5.5 L (6.3-8.2) g/dL Albumin 3.0 L (3.5-5.0) g/dL Assessment and Plan Assessment: Acute hypoxic respiratory failure currently requiring 6 L oxygen via nasal cannula due to acute PE Acute pulmonary embolism likely provoked due to her long trips a month ago. Submassive pulmonary embolism with right ventricular strain and enlargement. Status post EKOS follow level 1121 Previous history of DVT status post anticoagulation for a month about 2 years ago. Elevated troponin level. No evidence of right heart strain on CTA chest History of ovarian cancer status post surgery and chemotherapy and is in remission since 2010 Hyperlipidemia Anxiety Obesity with BMI 38.0 Plan: Patient is in MICU. Status post EKOS. Patient was continued on IV heparin and bilateral lower extremity duplex scan Is negative for DVT. Anticoagulation transition to Eliquis starter dose. Oxygen supplementation via nasal cannula. Titrate down to room air. Vascular surgery, cardiology and pulmonary is on board. Continue to follow closely. Time with Patient: Greater than 30
--- NOTE | 2021-09-23 00:19 | P.PN ---
Subjective Progress Note Date: 09/22/21 Principal diagnosis: Acute pulmonary embolism Patient is a 71-year-old female with a known history of ovarian cancer status post chemotherapy currently in remission, osteoarthritis and anxiety presents to ER due to complaints of worsening shortness breath. Patient has been symptoms since September 11 of this month with Shortness of breath and was recommended to wear primary care physician to go to ER. COVID-19 test was negative Patient does have history of right lower extremity DVT and was on anticoagulation about 2 years ago. Currently not on any blood thinners.Denies any complaints of chest pain. No leg swelling. No calf tenderness. No fever no chills. No cough or sputum production. Denies any pleuritic pain. Apparently patient went to [place] on a road trip twice and came back to [place] around August 22, 2021. Chest x-ray on admission showed no acute cardiopulmonary disease. Borderline cardiomegaly. Heart appears increasing compared to old exam. CT angiogram of the chest showed bilateral extensive upper and lower lobe pulmonary embolism. No saddle embolism. No evidence of right heart strain. EKG showed sinus tachycardia. Lab data showed WBC 10.0 hemoglobin 14.9 and platelets 226 and neutrophils 8.1 D-dimer 7.93 Sodium 135 potassium 4.6 chloride 105 bicarb is 28 BUN 22 and creatinine 0.89 and troponin level 0.146, 0.150 and 0.118 proBNP 3890 and COVID-19 PCR not detected. Patient states that she is fully vaccinated against COVID-19 virus and is planning to get what she does. 09/20/2021 Patient is currently in MICU. Admitted to hospital due to bilateral pulmonary embolism. Patient is undergoing EKOS today. 2D echocardiogram showed moderately enlarged right ventricle and moderately impaired RV function with right ventricular sy stolic pressure of 46. Patient was diagnosed with submassive pulmonary embolism with right heart strain. Transferred to MICU postprocedure. Currently lying in the bed awake alert 1x3. Requiring 6 L oxygen via nasal cannula. No complaints of chest pain. No cough or sputum production. No fever no chills. Patient is being continued on heparin drip. Laboratory showed WBC 6.3 hemoglobin 13.8 and platelets 185 sodium 137 potassium 4.8 chloride 105 bicarb 26 BUN 19 and creatinine 0.73 and calcium 9.4 Venous duplex scan is negative for DVT. 09/21/2021 Patient is currently in MICU. Denied any complaints of chest pain. Shortness of breath is better. Patient completed EKOS procedure. Currently requiring it 2 L oxygen. Heparin has been discontinued and patient was started on Eliquis starter dose. No complaints of fever or chills. Hemodynamically stable. No headache or dizziness or lightheadedness. Patient is being transported to [facility] care unit today. 09/22/2021 Patient is currently in the select care unit. Lying in the bed comfortably. Denies any complaints of chest pain or worsening shortness of breath. Patient feels very anxious. Currently requiring oxygen at 3 L via nasal cannula and is being transitioned down to room air. Patient is Eliquis. Hemodynamically stabl e. No chest pain or shortness of breath. No fever no chills. Tolerating oral diet. No nausea vomiting abdominal pain or diarrhea. Anticipate discharge in the next 24 hours. Current medications reviewed. Objective - Vital Signs Vital signs: Vital Signs Temp 97.7 F 09/22/21 20:00 Pulse 83 09/22/21 20:00 Resp 16 09/22/21 20:00 BP 113/59 09/22/21 20:00 Pulse Ox 93 L 09/22/21 20:00 Intake & Output 09/22/21 09/22/21 09/23/21 06:59 18:59 06:59 Intake Total 600 Balance 600 Weight 92 kg Intake: Oral 600 Other: # Voids 1 2 1 - Exam PHYSICAL EXAMINATION: Patient is lying in the bed comfortably, no acute distress, awake alert and orie nted.. HEENT: Normocephalic. Neck is supple. Pupils reactive. Nostrils clear. Oral cavity is moist. Neck reveals no JVD, carotid bruits, or thyromegaly. CHEST EXAMINATION: Trachea is central. Symmetrical expansion. Lung madera clear to auscultation and percussion. CARDIAC: Normal S1, S2 with no gallops. No murmurs ABDOMEN: Soft. Bowel sounds normal. No organomegaly. No abdominal bruits. Extremities: reveal no edema. No clubbing or cyanosis Neurologically awake, alert, oriented x3 with well-coordinated movements. No focal deficits noted Skin: No rash or skin lesions. Psychiatric: Cooperative. Nonsuicidal Musculoskeletal: No joint swelling or deformity. Normal range of motion. - Labs CBC & Chem 7: 09/21/21 05:23 09/21/21 05:23 Assessment and Plan Assessment: Acute hypoxic respiratory failure currently requiring 6 L oxygen via nasal cannula due to acute PE Acute pulmonary embolism likely provoked due to her long trips a month ago. Submassive pulmonary embolism with right ventricular strain and enlargement. Status post EKOS follow level 1121 Previous history of DVT status post anticoagulation for a month about 2 years ago. Elevated troponin level. No evidence of right heart strain on CTA chest History of ovarian cancer status post surgery and chemotherapy and is in remission since 2010 Hyperlipidemia Anxiety Obesity with BMI 38.0 Plan: Patient is in MICU. Status post EKOS. Patient was continued on IV heparin and bilateral lower extremity duplex scan Is negative for DVT. Anticoagulation transition to Eliquis starter dose. Oxygen supplementation via nasal cannula. Titrate down to room air. Vascular surgery, cardiology and pulmonary is on board. Continue to follow closely.
[2021-09-23] MEDS: IPRATROPIUM-ALBUTEROL 3 ML NEB INHALATION SCH ×2 (07:58→12:41)
--- NOTE | 2021-09-23 09:10 | P.PN ---
Subjective Progress Note Date: 09/23/21 09/21/2021, the patient is doing much better. This morning, the patient completed her intra-arterial thrombolytic therapy and the patient is doing extremely well. The catheter is a been removed and the patient is currently having a pulse ox of 88-90% on room air oxygen. She was also started on Eliquis 10 mg by mouth twice a day. Doppler of the lower extremity is a been negative. She remains hemodynamically stable. Her mean arterial pressure is 70. White cell count is at 5.8. Platelet count is at 155. Electrodes are all within normal limits. No other significant complaints. No chest pain. No pleurisy. No hemoptysis. She has adequate pulses in lower extremities. 09/22/2021, the patient is currently transferred out of the intensive care unit and she is currently on a medical floor. She is currently on oral Eliquis and she is doing well. Hemodynamically she is afebrile. She was started on a dose of 10 mg by mouth twice a day. His oxygenation is stable and currently she is on oxygen at 3 L with a pulse ox of 94% on this could be further weaned down. No chest pain. No pleurisy. No hemoptysis. No signs of any bleeding. No other place. The vascular surgery insertion site and her groin area is clean and there is no evidence of any bleeding at that site. The patient is doing well for now. She has no specific complaints. She was transferred out of the intensive care unit yesterday. Her current hemoglobin is still pending. 2020, the patient is doing well. No major complaints. She was able to maintain her pulse ox above 90% on room air at rest and during activity. This is going to be rechecked again prior to discharge. She is on Eliquis 10 mg by mouth twice a day and after a one-week of treatment this to those will be reduced down to 5 mg twice a day. No other complaints otherwise. No bleeding complications. No pleurisy. No hemoptysis. Objective - Vital Signs Vital signs: Vital Signs Temp 97.8 F 09/23/21 08:41 Pulse 78 09/23/21 08:41 Resp 17 09/23/21 08:41 BP 113/51 09/23/21 08:41 Pulse Ox 91 L 09/23/21 08:41 Intake & Output 09/22/21 09/23/21 09/23/21 18:59 06:59 18:59 Other: # Voids 2 1 - Exam The patient appeared well nourished and normally developed. Vital signs as documented. Head exam is unremarkable. No scleral icterus or corneal arcus noted. Neck is without jugular venous distension, thyromegaly, or carotid bruits. Carotid upstrokes are brisk bilaterally. Lungs are clear to auscultation and percussion. Cardiac exam reveals the PMI to be normally sized and situated. Rhythm is regular. First and second heart sounds normal. No murmurs, rubs or gallops. Abdominal exam reveals normal bowel sounds, no masses, no organomegaly and no aortic enlargement. Extremities are nonedematous and both femoral and pedal pulses are normal.Examination of the skin revealed no evidence of significant rashes, suspicious appearing nevi or other concerning lesions.Neurologically, the patient is awake and alert and the patient does not have any focal neurological deficit. Cranial nerves are essentially intact. - Labs CBC & Chem 7: 09/21/21 05:23 09/21/21 05:23 Assessment and Plan Plan: 1 acute bilateral pulmonary embolism with secondary shortness of breath and hypoxemia and the patient is currently on room air oxygen and the patient completed intra-arterial thrombolytic therapy with EKOS . Doppler of the l ower extremity was negative. No complaints. Discharge home today as the patient's condition has stabilized. She is currently on Eliquis. Oxygenation is improved. 2 acute hypoxic respiratory failure secondary to above, improved 3 shortness of breath secondary to above 4 troponin leak secondary to above 5 previous history of DVT of the right lower extremity back in 2019 6 ovarian cancer with previous debulking surgery, abdominal hysterectomy and also recommended the patient has received systemic chemotherapy and the patient has been in remission since 2010 7 hyperlipidemia 8 anxiety Plan Patient is improved and the patient is currently on Eliquis and the patient has no complaints. I think it's reasonable to assume discharge Continue oral Eliquis 10 mg by mouth twice a day This will be a long-term anticoagulation with Eliquis due to the recurrent nature of her VTE
[2021-09-23] MEDS: ATORVASTATIN 20 MG TAB PO SCH (09:53)
[2021-09-23] MEDS: hydroCHLOROthiazide 25 MG TAB PO SCH (09:53)
[2021-09-23] MEDS: APIXABAN 5 MG TAB PO SCH (09:53)
[2021-09-23] MEDS: CITALOPRAM HYDROBROMIDE 20 MG TAB PO SCH (09:53)
[2021-09-23] MEDS: MAGNESIUM OXIDE 400 MG TAB PO SCH (09:53)
[2021-09-23] MEDS: MULTIVITAMINS, THERA 1 EACH TAB PO SCH (09:53)
[2021-09-23] MEDS: lisinopriL 10 MG TAB PO SCH (09:53)
[2021-09-23] MEDS: MELOXICAM 7.5 MG TAB PO SCH (09:54)
[2021-09-23] MEDS: LATANOPROST 0.005% OPHTH DROPS 2.5 ML BTL BOTH EYES SCH (09:54)
[2021-09-23 12:01] LABS: Basophils % (A) 0 %; Eosinophils # (A) 0.2 k/uL (0-0.7); Eosinophils % (A) 4 %; HCT 40.2 % (34.0-46.0); HGB 13.9 gm/dL (11.4-16.0); Lymphocytes # (A) 1.2 k/uL (1.0-4.8); Lymphocytes % (A) 23 %; MCH 31.6 pg (25.0-35.0); MCHC 34.4 g/dL (31.0-37.0); MCV 91.8 fL (80.0-100.0); Mean Platelet Volume 7.7; Monocytes # (A) 0.2 k/uL (0-1.0); Monocytes % (A) 4 %; Neutrophils # (A) 3.5 k/uL (1.3-7.7); Neutrophils % (A) 66 %; Platelet Count 214 k/uL (150-450); RBC 4.38 m/uL (3.80-5.40); RDW 13.7 % (11.5-15.5); WBC 5.3 k/uL (3.8-10.6)
[2021-09-23] MEDS: SODIUM CHLORIDE 0.9% 1,000 ML IV SCH ×2 (12:15)
--- NOTE | 2021-09-23 12:21 | P.PN ---
Subjective Progress Note Date: 09/23/21 HISTORY OF PRESENT ILLNESS This is 71-year-old female was admitted to the hospital with multiple pulmonary emboli. Patient had EKOS procedure and had thrombolytic therapy. The catheter was removed yesterday. Patient is maintained on eliquis. 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 She does not oxygen therapy pulse ox is 94% on 3 L nasal cannula. No complaints of chest pain, cough or hemoptysis. 09/23/2021: Patient denies having any chest pain or shortness of breath. Pulmonary medicine has been through and cleared the patient for discharge. PHYSICAL EXAMINATION Gen: This is a 71-year-old female, resting in bed in no acute distress. VS: Pulse ox 91% on room air, afebrile, heart rate 78, blood pressure 113/51. HEENT: Head is atraumatic, normocephalic. Pupils equal, round. Sclerae is anicteric. NECK: Supple. No JVD. No lymphadenopathy. No thyromegaly. LUNGS: Clear to auscultation. No wheezes or rhonchi. No intercostal retractions. HEART: Regular rate and rhythm. No murmur. Regular rhythm. ABDOMEN: Soft. Bowel sounds are present. No masses. No tenderness. EXTREMITIES: No pedal edema. No calf tenderness. Groin is soft and puncture site. NEUROLOGICAL: Patient is awake, alert and oriented x3. ASSESSMENT Acute pulmonary embolism Elevated troponin secondary to PE Acute hypoxic respiratory failure Hypertension Hyperlipidemia History of right-sided DVT. PLAN Patient is cleared for discharge from cardiology Continue eliquis. Follow-up outpatient in one week. Thank you kindly for this consultation. Nurse practitioner note has been reviewed, I agree with documented findings and plan of care. Patient was seen and examined. Objective - Vital Signs Vital signs: Vital Signs Temp 97.8 F 09/23/21 08:41 Pulse 78 09/23/21 08:41 Resp 17 09/23/21 08:41 BP 113/51 09/23/21 08:41 Pulse Ox 91 L 09/23/21 08:41 Intake & Output 09/22/21 09/23/21 09/23/21 18:59 06:59 18:59 Intake Total 480 Balance 480 Intake: Oral 480 Other: # Voids 2 1 - Labs CBC & Chem 7: 09/23/21 11:16 09/21/21 05:23
[2021-09-23 12:25] VITALS: BP 125/73; PULSE 64; RESP 16; TEMP 97.9
[2021-09-23 12:31] LABS: Calcium 10.3 mg/dL (8.4-10.2); Potassium 4.8 mmol/L (3.5-5.1)
--- NOTE | 2021-09-26 08:41 | CDI ---
Documentation Clarification Form Date: 09/26/21 From: Adelaide Benjamin Admit Date: 09/18/2021 08:25:00 PM Patient Name: Josselin Mccray Visit Number: [id number] Discharge Date: 09/23/2021 04:26:00 PM ATTENTION: The Clinical Documentation Specialists (CDI) and [facility] Coding Staff appreciate your assistance in clarifying documentation. Please respond to the clarification below the line at the bottom and electronically sign. The CDI & [facility] Coding staff will review the response and follow-up if needed. Please note: Queries are made part of the Legal Health Record. If you have any questions, please contact the author of this message via ITS. Dr. Kameron Carrington, Submassive pulmonary embolism with right heart strain is documented in the Ekos catheter placement procedure note. Additional clarification regarding the right heart strain is requested. History/Risk Factors: hx of DVT, pulmonary hypertension, HTN, Clinical Indicators: CTA 09/18/2021 which showed extensive bilateral upper and lower lobe pulmonary emboli.vEcho 09/19/2021 showed EF 50-55% with mild to moderately enlarged right ventricle and moderately impaired RV function with RVSP of 46. Patient had elevated troponin of 0.14 as well as a elevated proBNP of 3890 and therefore secondary submassive pulmonary embolism with right heart strain and increase RVSP Ekos catheter was recommended. BNP: 3890 Echo results: Right ventricular systolic function is moderately impaired. There is mild to moderate pulmonary hypertension. Radiology results: see above Cardio Consults: Ekos placement Treatment: Ekos placement bilateral pulmonary arteries Please clarify the acuity and etiology of the right heart strain, if known: [X ] Acute Cor pulmonale due to pulmonary embolism [ ] Acute pulmonary embolism without acute cor pulmonale [ ] Other, please specify MTDD
== END 2021-09-23 16:26 | disposition home or self-care (01) | DRG 166 ==
LOC: EC 17:44 → 3SCARD 20:25 → 2SICU 09-20 12:33 → 3SCARD 09-21 17:21
PROVIDERS: ADMIT Hospitalist; ATTEND Hospitalist
PROC: 3E03317 Introduction of Other Thrombolytic into Peripheral Vein, Percutaneous Approach (ICD-10-PCS; principal; 2021-09-20 09:00)
PROC: 02FR3Z0 Fragmentation of Left Pulmonary Artery, Percutaneous Approach, Ultrasonic (ICD-10-PCS; principal; 2021-09-20 09:00)
PROC: 02FQ3Z0 Fragmentation of Right Pulmonary Artery, Percutaneous Approach, Ultrasonic (ICD-10-PCS; principal; 2021-09-20 09:00)
DX: I26.09 Other pulmonary embolism with acute cor pulmonale (principal); J96.01 Acute respiratory failure with hypoxia; I27.20 Pulmonary hypertension, unspecified; Z20.822 Contact with and (suspected) exposure to COVID-19; I10 Essential (primary) hypertension; I08.1 Rheumatic disorders of both mitral and tricuspid valves; R77.8 Other specified abnormalities of plasma proteins; F41.9 Anxiety disorder, unspecified; E78.5 Hyperlipidemia, unspecified; E66.9 Obesity, unspecified; Z68.38 Body mass index [BMI] 38.0-38.9, adult; M19.90 Unspecified osteoarthritis, unspecified site; Z79.1 Long term (current) use of non-steroidal anti-inflammatories (NSAID); Z79.899 Other long term (current) drug therapy; Z86.718 Personal history of other venous thrombosis and embolism; Z85.43 Personal history of malignant neoplasm of ovary; Z92.21 Personal history of antineoplastic chemotherapy; Z87.81 Personal history of (healed) traumatic fracture; Z87.39 Personal history of other diseases of the musculoskeletal system and connective tissue; Z98.42 Cataract extraction status, left eye; Z98.41 Cataract extraction status, right eye; Z96.651 Presence of right artificial knee joint; Z90.710 Acquired absence of both cervix and uterus; Z98.890 Other specified postprocedural states; Z88.1 Allergy status to other antibiotic agents; Z91.040 Latex allergy status; Z88.8 Allergy status to other drugs, medicaments and biological substances; Z91.048 Other nonmedicinal substance allergy status; Z80.3 Family history of malignant neoplasm of breast
CPT/HCPCS: 36415; 37211; 71046; 71275; 76937; 80048; 80053; 83605; 83735; 83880; 84484; 85025; 85379; 85384; 85610; 85730; 87635; 93005; 93306; 93970; 94640; 99291

== ENCOUNTER → 2022-07-03 | Outpatient (CLI) | payer MEDICARE, OTHER ==
--- NOTE | 2022-07-03 14:54 | XR ---
EXAMINATION TYPE: XR chest 2V DATE OF EXAM: 07/03/2022 COMPARISON: Chest x-ray and CTA chest September 18, 2021 HISTORY: Endometrial cancer. TECHNIQUE: Frontal and lateral views of the chest are obtained. FINDINGS: There is no focal air space opacity, pleural effusion, or pneumothorax seen. The cardiac silhouette size is stable and mildly enlarged. The osseous structures are intact. IMPRESSION: Mild cardiomegaly without acute pulmonary process. No significant change from most recen t chest x-ray.
[2022-07-03 15:05] LABS: Basophils % (A) 1 %; Eosinophils # (A) 0.1 k/uL (0-0.7); Eosinophils % (A) 2 %; HCT 46.6 % (34.0-46.0); HGB 15.1 gm/dL (11.4-16.0); Lymphocytes # (A) 1.9 k/uL (1.0-4.8); Lymphocytes % (A) 31 %; MCH 30.1 pg (25.0-35.0); MCHC 32.3 g/dL (31.0-37.0); MCV 93.2 fL (80.0-100.0); Mean Platelet Volume 7.4; Monocytes # (A) 0.3 k/uL (0-1.0); Monocytes % (A) 5 %; Neutrophils # (A) 3.6 k/uL (1.3-7.7); Neutrophils % (A) 59 %; Platelet Count 267 k/uL (150-450); RDW 12.9 % (11.5-15.5); WBC 6.1 k/uL (3.8-10.6)
[2022-07-03 15:20] LABS: ALT 32 U/L (4-34); AST 39 U/L (14-36); African American GFR (CKD) 83 (>60 ml/min/1.73 sqM); Albumin 4.4 g/dL (3.5-5.0); Albumin/Globulin Ratio 1.6; Alkaline Phosphatase 90 U/L (38-126); Anion Gap 13 mmol/L; Blood Urea Nitrogen 20 mg/dL (7-17); Calcium 10.5 mg/dL (8.4-10.2); Carbon Dioxide 25 mmol/L (22-30); Chloride 98 mmol/L (98-107); Globulin 2.7 g/dL; Glucose 88 mg/dL (74-99); Non-African American GFR(CKD) 72 (>60 ml/min/1.73 sqM); Potassium 4.6 mmol/L (3.5-5.1); Sodium 136 mmol/L (137-145); Total Bilirubin 1.2 mg/dL (0.2-1.3); Total Protein 7.1 g/dL (6.3-8.2)
--- NOTE | 2022-07-03 16:52 | CT ---
EXAMINATION TYPE: CT ChestAbdPelvis w con CT DLP: 2002.50 mGycm, Automated exposure control for dose reduction was used. DATE OF EXAM: 07/03/2022 4:38 PM COMPARISON: CT chest 09/18/2021, CT chest abdomen pelvis 10/08/2019 CLINICAL INDICATION:Female, 72 years old with history of C54.1 Malignant neoplasm of endometrium; PHH , obs for mets. hx of ovarian ca Technique: Multiple axial images of the chest, abdomen, and pelvis were obtained. Two-dimensional cor onal and sagittal reconstructions were obtained. Contrast used:100 mL of Isovue 300 with IV Contrast, Oral contrast used: with Oral Contrast Findings: CHEST: LUNGS/ PLEURA: The lung parenchyma appears unremarkable. AIRWAY: Patent and unremarkable. HEART: Size within normal limits. MEDIASTINUM: No gross evidence of adenopathy. VASCULATURE: No aortic aneurysm. No evidence for pulmonary embolism on this limited exam. MUSCULOSKELETAL: No acute osseous abnormalities. SOFT TISSUES/LYMPH NODES: Unremarkable. LOWER NECK: No significant findings. ABDOMEN: ABDOMEN LIVER: Diffusely hypoattenuating parenchyma. GALLBLADDER AND BILE DUCTS: The gallbladder is surgically absent. PANCREAS: Unremarkable. SPLEEN: Small splenule is present. ADRENAL GLANDS: Unremarkable. KIDNEYS AND URETERS: No evidence of hydronephrosis or renal calculus. The ureters are unremarkable. PELVIS BLADDER: Unremarkable REPRODUCTIVE: The uterus is surgically absent. The ovaries are surgically absent without evidence of recurrence. ABDOMEN & PELVIS STOMACH AND BOWEL: Stomach and duodenum are unremarkable. Scattered diverticula are noted throughout the colon. No evidence of bowel obstruction. PERITONEUM: No evidence of pneumoperitoneum or free fluid. VASCULATURE: No evidence of aortic aneurysm. MUSCULOSKELETAL: No acute osseous abnormalities, multilevel disc degeneration changes are seen throug hout the spine. LYMPH NODES: No gross evidence for lymphadenopathy. SOFT TISSUE/ABDOMINAL WALL: Fat filled umbilical hernia measuring 1.5 cm at the neck. IMPRESSION: 1. No evidence for recurrent or metastatic disease. No lymphadenopathy or suspicious lesion. 2. Hepatic steatosis. 3. Colonic diverticulosis.
[2022-07-04 01:50] LABS: Cancer Antigen 125 14.8 U/mL (0.0-30.1)
--- NOTE | 2022-07-04 07:33 | MM ---
Reason for Exam: Screening (asymptomatic). Last screening mammogram was performed 12 month(s) ago. Patient History: Menarche at age 13. First Full-Term at age 25. Left ovary removed at age 61. Right ovary removed at age 61. Hysterectomy at age 61. Postmenopausal. Ovarian cancer, age 61. Previous chemotherapy at age 61. Hormonal Contraceptives for 5 years from age 20 until age 25. 06/27/2015, Benign Core Biopsy on the right side. Sister had breast cancer, age 60. Risk Values: Guillermina 5 year model risk: 3.9%. NCI Lifetime model risk: 10.6%. Prior Study Comparison: 06/04/2019 Bilateral Screening Mammogram, [facility]. 06/26/2020 Bilateral Screening Mammogram, [facility]. 07/06/2021 Bilateral Screening Mammogram, [facility]. Tissue Density: There are scattered fibroglandular densities. Findings: Analyzed By CAD. There is no suspicious group of microcalcifications or new suspicious mass in either breast. Biopsy clip within the right breast. Stable benign calcifications. Stable chronic nodularity bilaterally. Overall Assessment: Benign, BI-RAD 2 Management: Screening Mammogram of both breasts in 1 year. A clinical breast exam by your physician is recommended on an annual basis and results should be correlated with mammographic findings. Electronically signed and approved by: Abraham Chávez D.O.
== END | disposition home or self-care (01) ==
LOC: RADCTMAIN 13:49
PROVIDERS: ATTEND Obstetrics & Gynecology Gynecologic Oncology
DX: Z12.31 Encounter for screening mammogram for malignant neoplasm of breast (principal); C54.1 Malignant neoplasm of endometrium; Z78.0 Asymptomatic menopausal state; Z80.3 Family history of malignant neoplasm of breast; R92.1 Mammographic calcification found on diagnostic imaging of breast; I51.7 Cardiomegaly; K57.90 Diverticulosis of intestine, part unspecified, without perforation or abscess without bleeding; K76.0 Fatty (change of) liver, not elsewhere classified; K57.30 Diverticulosis of large intestine without perforation or abscess without bleeding
CPT/HCPCS: 80053; 86304; 82378; 85025; 71046; 77067; 77063; 71260; 74177; 36415; Q9967

== ENCOUNTER → 2023-07-11 | Outpatient (CLI) | payer MEDICARE, OTHER ==
--- NOTE | 2023-07-11 15:25 | XR ---
EXAMINATION TYPE: XR chest 2V DATE OF EXAM: 07/11/2023 3:21 PM COMPARISON: Chest radiographs from 07/03/2022, CT chest abdomen pelvis 07/03/2022 TECHNIQUE: XR chest 2V Frontal and lateral views of the chest. CLINICAL INDICATION:Female, 73 years old with history of C54.1; FINDINGS: Lungs/Pleura: There is no evidence of pleural effusion, focal consolidation, or pneumothorax. Pulmonary vascularity: Unremarkable. Heart/mediastinum: Cardiomediastinal silhouette is prominent in size. Musculoskeletal: No acute osseous pathology. IMPRESSION: No acute cardiopulmonary disease/process.
[2023-07-11 20:06] LABS: Basophils # (A) 0.02 X 10*3/uL (0.00-0.10); Basophils % (A) 0.4 %; Eosinophils % (A) 1.8 %; HCT 46.1 % (37.2-46.3); HGB 15.2 d/dL (12.0-15.0); Lymphocytes % (A) 35.2 %; MCH 30.5 pg (27.0-32.0); MCV 92.4 FL (80.0-97.0); Mean Platelet Volume 9.7 FL (9.5-12.2); Monocytes # (A) 0.31 X 10*3/uL (0.20-1.00); Monocytes % (A) 5.5 %; NRBC Per 100 WBC 0 X 10*3/uL (0.00-0.01); Neutrophils # (A) 3.23 X 10*3/uL (1.80-7.70); Neutrophils % (A) 56.7 %; Platelet Count 276 X 10*3/uL (140-440); RBC 4.99 X 10*6/uL (4.10-5.20); RDW 13.5 % (11.5-14.5); WBC 5.68 X 10*3/uL (4.50-10.00)
[2023-07-11 20:11] LABS: ALT 39 U/L (8-44); AST 34 U/L (13-35); Albumin 4.6 d/dL (3.8-4.9); Albumin/Globulin Ratio 1.84 Ratio (1.60-3.17); Alkaline Phosphatase 100 U/L (41-126); BUN/Creat Ratio 19.44 Ratio (12.00-20.00); Blood Urea Nitrogen 17.5 mg/dL (9.0-27.0); Carbon Dioxide 28.3 mmol/L (21.6-31.8); Chloride 98 mmol/L (96-109); Globulin 2.5 d/dL (1.6-3.3); Glucose 90 mg/dL (70-110); Sodium 139 mmol/L (135-145); Total Bilirubin 1.1 mg/dL (0.3-1.2); Total Protein 7.1 d/dL (6.2-8.2)
--- NOTE | 2023-07-15 22:55 | MM ---
Reason for Exam: Screening (asymptomatic). Last mammogram was performed 1 year(s) and 1 month(s) ago. Patient History: Menarche at age 13. First Full-Term at age 25. Left ovary removed at age 61. Right ovary removed at age 61. Hysterectomy at age 61. Postmenopausal. Patient has history of breast feeding. Ovarian cancer, age 61. Previous chemotherapy at age 61. Hormonal Contraceptives for 5 years from age 20 until age 25. 06/27/2015, Benign Core Biopsy on the right side. Sister had breast cancer, age 60. Risk Values: Guillermina 5 year model risk: 4.0%. NCI Lifetime model risk: 10.1%. Prior Study Comparison: 01/03/2016 Screening Mammogram, [place]. 01/10/2017 Screening Mammogram, [place]. 04/02/2018 Bilateral Diagnostic Mammogram, [facility]. 06/04/2019 Bilateral Screening Mammogram, [facility]. 06/26/2020 Bilateral Screening Mammogram, [facility]. 07/06/2021 Bilateral Screening Mammogram, [facility]. 07/03/2022 Bilateral MG 3D screening mammo w/cad, [facility]. Tissue Density: There are scattered fibroglandular densities. Findings: Analyzed By CAD. Microclip in the right breast from prior biopsy. Benign oil cyst calcifications redemonstrated on the left. Additional chronic nodularity on the left. There is no suspicious group of microcalcifications or new suspicious mass in either breast. Overall Assessment: Benign, BI-RAD 2 Management: Screening Mammogram of both breasts in 1 year. See note below in regards to patient's increased 5 year Guillermina score. Patient should continue monthly self-breast exams. A clinical breast exam by your physician is recommended on an annual basis. This exam should not preclude additional follow-up of suspicious palpable abnormalities. Note on Guillermina scores and lifetime risk: 1. A Guillermina score greater than 3% is considered moderate risk. If this is the case, consider specialist referral to assess eligibility for a risk reducing agent. 2. If overall lifetime risk for the development of breast cancer is 20% or higher, the patient may qualify for future screening with alternating mammogram and breast MRI. Electronically signed and approved by: Genie Dudley M.D. Radiologist
== END | disposition home or self-care (01) ==
LOC: RADMAMWWP 13:48
PROVIDERS: ATTEND Obstetrics & Gynecology Gynecologic Oncology
DX: Z12.31 Encounter for screening mammogram for malignant neoplasm of breast (principal); C54.1 Malignant neoplasm of endometrium; Z78.0 Asymptomatic menopausal state; Z80.3 Family history of malignant neoplasm of breast
CPT/HCPCS: 71046; 77063; 77067; 80053; 85025; 86304

== ENCOUNTER 2023-10-04 08:01 | Emergency (ER) | payer MEDICARE, OTHER ==
[2023-10-04 08:10] VITALS: TEMP 98.3
--- NOTE | 2023-10-04 08:48 | XR ---
EXAMINATION TYPE: XR knee complete LT DATE OF EXAM: 10/04/2023 CLINICAL HISTORY: pain TECHNIQUE: Three views of the left knee are obtained. COMPARISON: 09/10/2020 FINDINGS: There is no acute fracture/dislocation. The tri-compartment joint spaces appear within no rmal limits. The overlying soft tissue appears unremarkable. Small suprapatellar joint effusion note d. IMPRESSION: There is no acute fracture or dislocation ICD 10 NO FRACTURE, INITIAL EVALUATION
--- NOTE | 2023-10-04 09:11 | ED ---
General Adult HPI - General Chief complaint: Extremity Injury, Lower Stated complaint: knee pain Time Seen by Provider: 10/04/23 08:58 Source: patient, RN notes reviewed Mode of arrival: EMS Limitations: physical limitation - History of Present Illness Initial comments: 73-year-old female presents for left knee pain. Patient states that a few days ago she was taking care of her family member who is in a rolling walker. The family member fell onto her and she twisted her knee. She states that progressively over the last few days she has had worsening left knee pain. States she is unable to flex her knee or bear weight on it. Denies any numbness in her foot. Denies any other injuries.Patient has no other complaints at this time including shortness of breath, chest pain, abdominal pain, nausea or vomiting, headache, or visual changes. - Related Data Home Medications Medication Instructions Recorded Confirmed Multivitamins, Thera [Multivitamin 1 tab PO DAILY 04/07/14 09/18/21 (formulary)] Bimatoprost [Lumigan 0.01% Ophth 1 drop BOTH EYES BID 04/14/17 09/18/21 Soln] cycloSPORINE [Restasis] 1 applicator BOTH EYES HS 04/14/17 09/18/21 Atorvastatin Calcium [Lipitor] 20 mg PO DAILY 09/18/21 09/18/21 Baclofen [Lioresal] 10 mg PO BID PRN 09/18/21 09/18/21 Citalopram Hydrobromide [CeleXA] 40 mg PO DAILY 09/18/21 09/18/21 Magnesium 250 mg PO DAILY 09/18/21 09/18/21 Meloxicam 15 mg PO DAILY 09/18/21 09/18/21 Vitamin B Complex 1 cap PO DAILY 09/18/21 09/18/21 hydroCHLOROthiazide [Hydrodiuril] 25 mg PO DAILY 09/18/21 09/18/21 Previous Rx's Medication Instructions Recorded Apixaban [Eliquis Starter Pack 5 - 10 mg PO DIRECTED 30 Days 09/21/21 (for VTE)] #1 each lisinopriL [Zestril] 10 mg PO BID #60 tab 09/23/21 Allergies Allergy/AdvReac Type Severity Reaction Status Date / Time adhesive Allergy Unknown Rash/Hives Verified 10/04/23 08:09 cefazolin Allergy Rash/Hives Verified 10/04/23 08:09 latex Allergy Rash/Hives Verified 10/04/23 08:09 chloraprep Allergy Rash/Hives Uncoded 10/04/23 08:09 smoke Allergy Unknown Uncoded 10/04/23 08:09 Review of Systems ROS Statement: Those systems with pertinent positive or pertinent negative responses have been documented in the HPI. ROS Other: All systems not noted in ROS Statement are negative. Past Medical History Past Medical History: Cancer, Osteoarthritis (OA) Additional Past Medical History / Comment(s): HX OF OVARIAN CA WITH CHEMOTHERAPY APPROX 3 YRS AGO (2010) History of Any Multi-Drug Resistant Organisms: None Reported Past Surgical History: Hysterectomy, Orthopedic Surgery Additional Past Surgical History / Comment(s): RIGHT ANKLE FX, ADDI ACHILLES TENDONS, ADDI CATARACT, right knee replacement Past Anesthesia/Blood Transfusion Reactions: No Reported Reaction Past Psychological History: Anxiety Smoking Status: Never smoker Past Alcohol Use History: Rare Past Drug Use History: None Reported - Past Family History Mother History Unknown: Yes Father History Unknown: Yes Sister(s) Family Medical History: Cancer Additional Family Medical History / Comment(s): breast General Exam Limitations: physical limitation General appearance: alert, in no apparent distress Head exam: Present: atraumatic Eye exam: Present: normal appearance, PERRL, EOMI. Absent: scleral icterus, conjunctival injection ENT exam: Present: normal exam, mucous membranes moist Neck exam: Present: normal inspection, full ROM. Absent: tenderness Respiratory exam: Present: normal lung sounds bilaterally (Patient able to extend left knee but can only flex about 30.). Absent: respiratory distress, wheezes Cardiovascular Exam: Present: regular rate, normal rhythm, normal heart sounds Extremities exam: Present: normal capillary refill (Capillary refill less than 2 seconds, DP pulse 2+ in the left lower extremity), other (Moving left foot and toes). Absent: full ROM, calf tenderness Neurological exam: Present: alert Course Vital Signs 10/04/23 08:05 Temperature 98.3 F Pulse Rate 70 Respiratory 18 Rate Blood Pressure 134/76 O2 Sat by Pulse 99 Oximetry Medical Decision Making - Medical Decision Making Was pt. sent in by a medical professional or institution (, PA, SOLE ROUNDER, urgent care, hospital, or care home...) When possible be specific @ -No Did you speak to anyone other than the patient for history (EMS, parent, family, police, friend...)? What history was obtained from this source @ -No Did you review nursing and triage notes (agree or disagree)? Why? @ -I reviewed and agree with nursing and triage notes Were old charts reviewed (outside hosp., previous admission, EMS record, old EKG, old radiological studies, urgent care reports/EKG's, care home records)? Report findings @ -No old charts were reviewed Differential Diagnosis (chest pain, altered mental status, abdominal pain women, abdominal pain men, vaginal bleeding, weakness, fever, dyspnea, syncope, headache, dizziness, GI bleed, back pain, seizure, CVA, palpatations, mental health)? @ -Knee pain, tibial plateau fracture, meniscus injury, ligamentous injury EKG interpreted by me (3pts min.). @ -None X-rays interpreted by me (1pt min.). @ -None done CT interpreted by me (1pt min.). @ -None done U/S interpreted by me (1pt. min.). @ -None done What testing was considered but not performed or refused? (CT, X-rays, U/S, labs)? Why? @ -None What meds were considered but not given or refused? Why? @ -None Did you discuss the management of the patient with other professionals (professionals i.e. , PA, SOLE ROUNDER, lab, RT, psych nurse, social work manager, car icer, teacher, security police officer, community case manager)? Give summary @ -no Was smoking cessation discussed for >3mins.? @ -No Was critical care preformed (if so, how long)? @ -No Were there social determinants of health that impacted care today? How? (Homelessness, low income, unemployed, alcoholism, drug addiction, transportation, low edu. Level, literacy, decrease access to med. care, half-way, rehab)? @ -No Was there de-escalation of care discussed even if they declined (Discuss DNR or withdrawal of care, Hospice)? DNR status @ -No What co-morbidities impacted this encounter? (DM, HTN, Smoking, COPD, CAD, Cancer, CVA, ARF, Chemo, Hep., AIDS, mental health diagnosis, sleep apnea, morbid obesity)? @ -Obesity Was patient admitted / discharged? Hospital course, mention meds given and rout e, prescriptions, significant lab abnormalities, going to OR and other pertinent info. @ -Patient seen for left knee pain. X-ray negative for fractures. HPI and physical exam is documented. Patient had a knee immobilizer placed. Offered crutches however she declined stating she will use a walker. She will follow up with orthopedics. Undiagnosed new problem with uncertain prognosis? @ -No Drug Therapy requiring intensive monitoring for toxicity (Heparin, Nitro, Insulin, Cardizem)? @ -No Were any procedures done? @ -Application of knee immobilizer Diagnosis/symptom? @ -Left knee pain Acute, or Chronic, or Acute on Chronic? @ -Acute Uncomplicated (without systemic symptoms) or Complicated (systemic symptoms)? @ -Uncomplicated Side effects of treatment? @ -No Exacerbation, Progression, or Severe Exacerbation? @ -No Poses a threat to life or bodily function? How? (Chest pain, [place], PR, pneumonia, PE, COPD, DKA, ARF, appy, cholecystitis, CVA, Diverticulitis, Homicidal, Suicidal, threat to staff... and all critical care pts) @ -No Disposition Clinical Impression: Knee pain, left Disposition: HOME SELF-CARE Condition: Good Instructions (If sedation given, give patient instructions): Knee Pain (ED) Additional Instructions: Rest ice and elevate the left knee. Please wear knee immobilizer when ambulating. Use walker. Take Tylenol as needed for pain. Pain is severe take Tylenol 3. Do not take more than 1000 mg of Tylenol every 6 hours. Please follow-up with orthopedics. Return to the emergency room for any worsening symptoms. Is patient prescribed a controlled substance at d/c from ED?: No Referrals: Alex Hagan DO [Primary Care Provider] - 1-2 days Quinton Don MD [STAFF PHYSICIAN] - 1-2 days Time of Disposition: 09:30
[2023-10-04] MEDS ORDERED: ACET/COD 300 MG/30 MG STARTER PACK 6 TAB BTL PO STA (09:31)
[2023-10-04 10:19] VITALS: BP 132/78; PULSE 75; RESP 20
== END 2023-10-04 10:28 | disposition home or self-care (01) ==
LOC: EC 08:01
DX: M25.562 Pain in left knee (principal); F41.9 Anxiety disorder, unspecified; M19.90 Unspecified osteoarthritis, unspecified site; Z79.899 Other long term (current) drug therapy; Z91.040 Latex allergy status; Z88.1 Allergy status to other antibiotic agents; Z91.09 Other allergy status, other than to drugs and biological substances
CPT/HCPCS: 99284

== ENCOUNTER 2024-03-26 10:59 | Day surgery (SDC) | payer MEDICARE, OTHER ==
[2024-03-22 11:07] VITALS: BMI 37.8
[2024-03-26 12:26] VITALS: TEMP 97.6
[2024-03-26] MEDS: LACTATED RINGERS 1,000 ML IV SCH (12:26)
[2024-03-26] MEDS ORDERED: PROPOFOL 10 MG/ML 20 ML VIAL IV ONE (12:50)
--- NOTE | 2024-03-26 13:06 | P.PCN ---
Date of Procedure: 03/26/24 Procedure(s) Performed: BRIEF HISTORY: Patient is a 74-year-old pleasant white female scheduled for an elective colonoscopy as a part of screening for colon cancer/positive Cologuard PROCEDURE PERFORMED: Colonoscopy snare polypectomy. PREOPERATIVE DIAGNOSIS: Screening for colon cancer/positive Cologuard. IV sedation per Anesthesia. PROCEDURE: After informed consent was obtained, the patient, was brought into the endoscopy unit. IV sedation was administered by Anesthesia under continuous monitoring. Digital rectal examination was normal. Initially the Olympus CF-160 flexible video colonoscope was then inserted in the rectum, gradually advanced into the cecum without any difficulty. Careful examination was performed as the scope was gradually being withdrawn. Ileocecal valve and the appendiceal orifice were visualized and appeared normal. Prep was excellent. Mucosa of the cecum, ascending colon, appeared normal. The transverse colon there was a 6 mm polyp that was removed by cold snare polypectomy. Rest of the transverse colon, descending colon, sigmoid colon, and rectum appeared normal. Scattered left- sided diverticulosis. Retroflexion was performed in the rectum and no lesions were seen. The patient tolerated the procedure well. IMPRESSION: 6 mm transverse colon polyp status post cold snare polypectomy Scattered sigmoid diverticulosis RECOMMENDATIONS: Findings of this examination were discussed with the patient as well as her family.. She was advised to follow-up with the biopsy results. If the biopsy reveals adenoma she can have repeat colonoscopy in 5 years.
[2024-03-26 13:24] VITALS: RESP 16
[2024-03-26 14:21] VITALS: BP 149/80; PULSE 67
== END 2024-03-26 13:51 | disposition home or self-care (01) ==
LOC: ORWHC2ENDO 10:59
PROVIDERS: ATTEND Internal Medicine Gastroenterology
DX: D12.3 Benign neoplasm of transverse colon (principal); K57.30 Diverticulosis of large intestine without perforation or abscess without bleeding; I10 Essential (primary) hypertension; E78.5 Hyperlipidemia, unspecified; F41.9 Anxiety disorder, unspecified; Z90.710 Acquired absence of both cervix and uterus; Z90.49 Acquired absence of other specified parts of digestive tract; Z98.890 Other specified postprocedural states; Z79.899 Other long term (current) drug therapy
CPT/HCPCS: 88305; 45385; J2704

== ENCOUNTER → 2025-03-30 | Outpatient (CLI) | payer MEDICARE ==
[2025-03-30 18:16] LABS: HGB 14.1 g/dL (12.0-15.0); MCHC 33.6 g/dL (32.0-37.0); MCV 92.3 FL (80.0-97.0); Mean Platelet Volume 10.6 FL (9.5-12.2); NRBC Per 100 WBC 0 X 10*3/uL (0.00-0.01); Platelet Count 218 X 10*3/uL (140-440); RBC 4.55 X 10*6/uL (4.10-5.20); RDW 13.2 % (11.5-14.5); WBC 5.94 X 10*3/uL (4.50-10.00)
[2025-03-30 21:13] LABS: ALT 24 U/L (8-44); AST 27 U/L (13-35); Alkaline Phosphatase 104 U/L (41-126); BUN/Creat Ratio 23.14 Ratio (12.00-20.00); Blood Urea Nitrogen 16.2 mg/dL (9.0-27.0); Calcium 9.9 mg/dL (8.7-10.3); Carbon Dioxide 21.4 mmol/L (21.6-31.8); Chloride 108 mmol/L (96-109); Globulin 2.1 g/dL (1.6-3.3); Glucose 90 mg/dL (70-110); Potassium 4.1 mmol/L (3.5-5.5); Sodium 141 mmol/L (135-145); Total Bilirubin 0.7 mg/dL (0.3-1.2); Total Protein 6.1 g/dL (6.2-8.2)
== END | disposition home or self-care (01) ==
LOC: LABPAT 13:44
PROVIDERS: ATTEND Orthopaedic Surgery Sports Medicine
DX: Z01.812 Encounter for preprocedural laboratory examination (principal); M17.11 Unilateral primary osteoarthritis, right knee; Z22.322 Carrier or suspected carrier of Methicillin resistant Staphylococcus aureus
CPT/HCPCS: 80053; 85027; 87070

== ENCOUNTER → 2025-03-31 | Outpatient (CLI) | payer MEDICARE ==
[2025-03-31 15:32] LABS: Partial Thromboplastin Time 23.8 sec (22.0-30.0); Prothrombin Time 10.9 sec (10.0-12.5)
== END | disposition home or self-care (01) ==
LOC: LABPAT 14:50
PROVIDERS: ATTEND Orthopaedic Surgery Sports Medicine
DX: Z01.812 Encounter for preprocedural laboratory examination (principal); Z22.322 Carrier or suspected carrier of Methicillin resistant Staphylococcus aureus; M17.12 Unilateral primary osteoarthritis, left knee
CPT/HCPCS: 85610; 85730

== ENCOUNTER 2025-04-14 08:10 | Inpatient (IN) | payer MEDICARE, OTHER ==
[2025-04-11 18:18] VITALS: BMI 41.5
[~2025-04-14 08:10] MED LIST changes: -ACETAMINOPHEN TAB 500 MG TAB PO ONE; -CLINDAMYCIN 900 MG in DEXTROSE 5% IN WATER 50 ML IVPB ONE; -DEXAMETHASONE SOD PHOSPHATE 10 MG/ML 1 ML VIAL IV ONE; -LACTATED RINGERS 1,000 ML IV SCH; +LIDOCAINE 1% (10MG/ML) FOR IV START INTRADERMA PRN; -MELOXICAM 7.5 MG TAB PO ONE; -MIDAZOLAM 2 MG/2 ML VIAL IV PRN; -ONDANSETRON 4 MG/2 ML VIAL IVP ONE; +TRANEXAMIC 1,000 MG/100ML-NACL 1,000 MG in SALINE 1 100ML.BAG IVPB PRN; -TRANEXAMIC ACID 1,000 MG in SODIUM CHLORIDE 0.9% 100 ML IVPB ONE; +fentaNYL (PF) 50 MCG/ML 2 ML AMP IVP PRN
[2025-04-14] MEDS: IV FLUID CONTINUATION 1,000 ML IV ONE (08:40)
[2025-04-14] MEDS: ONDANSETRON 4 MG/2 ML VIAL IVP PRN (09:03)
[2025-04-14] MEDS: DEXAMETHASONE SOD PHOSPHATE 4 MG/ML 1 ML VIAL IV ONE (09:03)
[2025-04-14] MEDS: LACTATED RINGERS 1,000 ML IV SCH ×2 (09:03→17:14)
[2025-04-14] MEDS: ACETAMINOPHEN TAB 500 MG TAB PO PRN (09:04)
[2025-04-14] MEDS: GABAPENTIN 300 MG CAP PO PRN (09:04)
[2025-04-14] MEDS: MELOXICAM 7.5 MG TAB PO PRN (09:04)
[2025-04-14] MEDS: VANCOMYCIN 1,500 MG in SODIUM CHLORIDE 0.9% 500 ML 500 ML IVPB PRN (09:22)
[2025-04-14] MEDS: MIDAZOLAM 2 MG/2 ML VIAL IV PRN (09:39)
[2025-04-14] MEDS ORDERED: traMADol 50 MG TAB PO PRN (09:43)
[2025-04-14] MEDS ORDERED: HYDROmorphone 0.5 MG/0.5 ML SYRINGE IVP PRN ×2 (09:43)
[2025-04-14] MEDS ORDERED: bisacodyL 10 MG SUPP RECTAL PRN (09:43)
[2025-04-14] MEDS ORDERED: NALOXONE 0.4 MG/ML 1 ML VIAL IV PRN (09:43)
[2025-04-14] MEDS ORDERED: MAGNESIUM HYDROXIDE 2,400 MG/30 ML CUP PO PRN (09:43)
[2025-04-14] MEDS ORDERED: ACETAMINOPHEN TAB 325 MG TAB PO PRN (09:43)
[2025-04-14] MEDS ORDERED: ONDANSETRON 4 MG/2 ML VIAL IVP PRN (09:43)
[2025-04-14] MEDS ORDERED: NA PHOS,M-B/NA PHOS,DI-BA 133 ML ENEMA RECTAL PRN (09:43)
[2025-04-14] MEDS ORDERED: HYDROcodone/APAP 7.5-325MG 1 EACH TAB PO PRN (09:50)
[2025-04-14] MEDS ORDERED: PHENYLEPHRINE-0.9% NACL SYG 1,000 MCG/10 ML SYRINGE ONE (10:28)
[2025-04-14] MEDS ORDERED: DEXAMETHASONE SOD PHOSPHATE 4 MG/ML 1 ML VIAL ONE (10:28)
[2025-04-14] MEDS ORDERED: TRANEXAMIC 1,000 MG/100ML-NACL PREMIX BAG ONE (10:28)
[2025-04-14] MEDS ORDERED: diphenhydrAMINE 50 MG/ML 1 ML VIAL ONE (10:28)
[2025-04-14] MEDS ORDERED: ROPIVACAINE 5 MG/ML 30 ML VIAL ONE (10:28)
[2025-04-14] MEDS ORDERED: LIDOCAINE 1% INJ 10MG/ML (20 ML MDV) ONE (10:28)
[2025-04-14] MEDS ORDERED: PROPOFOL 10 MG/ML 20 ML VIAL IV ONE (10:28)
[2025-04-14] MEDS ORDERED: PHENYLEPHRINE 10 MG/ML VIAL ONE (10:28)
[2025-04-14] MEDS ORDERED: MIDAZOLAM 2 MG/2 ML VIAL ONE (10:28)
[2025-04-14] MEDS ORDERED: GLYCOPYRROLATE 0.2 MG/ML 2 ML VIAL ONE (10:28)
[2025-04-14] MEDS: SODIUM CHLORIDE 0.9% 100 ML with ceFAZolin 2,000 MG IV ONE (10:31)
[2025-04-14] MEDS: ROPIVACAINE 1,100 MG, SODIUM CHLORIDE 0.9% 500 ML 330 ML, EMPTY PAIN BALL 1 EACH MISCELLANE PRN (13:17)
--- NOTE | 2025-04-14 14:22 | XR ---
EXAMINATION TYPE: XR knee limited LT DATE OF EXAM: 04/14/2025 1:35 PM COMPARISON: None. CLINICAL INDICATION: Female, 75 years old with history of Evaluation for Postop abnormality and align ment, pain TECHNIQUE: 2 view(s) obtained. FINDINGS: There is placement of a femoral and acetabular component for a knee prosthesis. Posterior soft tissue changes are evident. No acute fracture is evident. IMPRESSION: 1. No acute fracture post left knee replacement [facility], , 04/14/2025 2:19 PM
--- NOTE | 2025-04-14 14:54 | OP ---
OPERATIVE REPORT DATE OF SERVICE : 04/14/2025 PREOPERATIVE DIAGNOSIS: Left knee osteoarthrosis. POSTOPERATIVE DIAGNOSIS: Left knee osteoarthrosis. OPERATION: Left total knee arthroplasty. ESTIMATED BLOOD LOSS: 100 mL. SPECIMEN TAKEN: ANESTHESIA: Spinal with sedation. TOURNIQUET TIME: 52 minutes at 250 mmHg. COMPLICATIONS: None apparent. DRAINS: None. DISPOSITION: Postanesthesia care unit. INDICATIONS: Josselin is a very pleasant 75-year-old female with longstanding history of left knee pain. History and physical examination are consistent with advanced left knee osteoarthrosis. She has been through significant operative management up to this point. Further treatment options were discussed, and she decided to go for the left total knee arthroplasty. The risks of procedure were discussed with her in detail. These risks include, but are not limited to risk of infection, nerve damage, bleeding, pain, and a small risk of deep vein thrombosis, which could lead to fatal pulmonary embolism. There is also small risk of losing the implant, which could require revision operation. The patient understands these risks. All of her questions with regard to the risks of the procedure were answered to her satisfaction. An appropriate informed consent was obtained. NARRATIVE: The patient was identified in preoperative holding area. Surgical site was marked by both the patient and myself. She was given 2 g of Ancef for IV prophylactic purposes. She was then transported to the operative suite. She was placed supine on the operating table. A spinal anesthetic was then administered and dosed per the Anesthesia Department without apparent complication. Examination under anesthesia was then performed. The patient was 2 to 3 degrees shy of full extension. She had 95 degrees of flexion. The medial collateral ligament, lateral collateral ligament, and posterior cruciate ligaments were stable. Tourniquet was then placed high on the left upper thigh well-padded in preparation for surgery. The patient's left lower extremity was then prepped and draped in the usual sterile fashion. Standard surgical pause was undertaken to ensure that we were operating the correct site and appropriate preoperative antibiotics had been given. All staff in the room were in agreement, and we proceeded. The outlines of the patella were then marked with a surgical pen. A planned 12 cm vertical incision centered over the patella was marked with a surgical pen. The leg was then exsanguinated with an Esmarch dressing. The knee was then flexed, and tourniquet was inflated to 250 mmHg. The total tourniquet time for the procedure was 52 minutes. The incision was then made with a 10-blade scalpel. Dissection was carried down sharply to the overlying fascia. Great care was taken to minimize the skin flaps. The knee was then exposed using a standard medial parapatellar approach. A small cuff of quadriceps tendon was then left for suturing. She was in quite a bit of varus preoperatively. A standard medial release was then made. Superficial medial collateral ligament was dissected off the bone around to the posterior aspect of the proximal tibia. The medial meniscus was then excised as well. The lateral meniscus was also released anteriorly. The leg was then externally rotated. The patella was everted. The knee was flexed. Retractors were then placed to protect the collateral ligaments. I then proceeded to remove the infrapatellar fat pad. This was excised sharply tangentially fibers of the patellar tendon. I then proceeded to remove the peripheral osteophytes. This was done with a rongeur. I then proceeded with the distal femoral resection. She did have near full extension. A planned 9 mm resection was then done. The femoral canal was then entered in the midline of the femur approximately 10 mm anterior to the origin of the posterior cruciate ligament. The shefali was then advanced down the center of the femur and placed intramedullary. Based on the preoperative radiographs, the angle between the anatomic and mechanical axis of the femur was approximately 4 to 5 degrees. The valgus angle of the distal femoral cutting guide was then set at 4 degrees for the left knee. The distal femoral cutting guide was then advanced over the intramedullary shefali. This was seated firmly against the femur. I, then, as mentioned, planned to take 9 mm off the distal femur. The cutting block was then secured onto the femur with pins. The jig was then removed. The distal cut was made through the slot of the block. The pins were then removed and the distal femoral cutting block was removed. The accuracy of the distal femoral cuts was checked with 2 flat bars. I then proceeded with femoral sizing. Posterior referencing sizing guide was held firmly against the resected distal surface of the femur. The posterior condyles were resting on the posterior plane of the guide. The sizing guide was then placed on the anterior femur. The size was measured as a size 6. I then assessed for femoral rotation. The plan was for 3 degrees of external rotation. 3 degrees of external rotation was placed onto the jig. These holes were then marked. We then confirmed the rotation by 3 separate methods. This was done using epicondylar axis as well as Whitesides line and posterior referencing. It was deemed that the external rotation was proper. I then went forward with placement of the femoral cutting block. This was placed over the previously-placed pin holes. The Ivan wing was then placed on the anterior slots to ensure that we would not notch the anterior femur with the anterior femoral cut. I then proceeded with the anterior femoral cut. This was flushed with the anterior cortex of the femur. The posterior cuts were then made followed by the anterior chamfer cut, then the posterior chamfer cut. The cutting block was then removed. Throughout the resection, the collateral ligaments were protected with retractors. I then placed a trial size 6 femur. It was slightly wide, but the narrow fit very nicely mediolateral and fit flush with the distal end of the femur. The drill hole was then made. I then proceeded with the tibial cut. I planned for cruciate-retaining knee. The guide was placed and set for varus valgus and for slope. Height was set for approximate 2 mm resection from the medial tibial plateau, which was the lower side. I was happy with the alignment and amount of resection. The cutting block was then pinned to the proximal tibia. The alignment shefali was removed and the proximal tibia was resected with a reciprocating saw. Again, this was done with retractors, protecting the collateral ligaments as well as the posterior cruciate ligament. I then proceeded to evaluate the flexion extension gaps. A 10 mm block was then placed. The flexion and extension gaps were equal. I then proceeded with resection of posterior osteophytes. She had very minimal posterior osteophytes. This was done using a curved osteotome. This resected the posterior osteophytes, and posterior capsular stripping was done off the posterior aspect of the femur at this time. The osteophytes were then removed. I then proceeded with resection of the patella. The thickness of the patella was measured using the caliper. The thickness was 24 mm. The thickness of the anticipated patellar dome was then taken into account. Resection was then performed and confirmed to be equal in 4 quadrants using a caliper. Approximately 14 mm of bone remained after resection. A 29 x 8 mm standard patellar trial was then placed. The holes were drilled and the trial was then placed. I then proceeded with sizing tibial plate. A size C tibial plate fit very nicely. I then placed the trial femur, the tibial tray and the patellar button. A 10 mm trial tibial insert was also placed. The components fit very nicely. She had full extension and flexion. The extension and flexion gaps were equal and stable to varus and valgus stress. The patella tracked appropriately. The tibial tray rotation was marked with a Bovie. This was externally rotated properly. I then proceeded with tibial preparation. I first drilled the femoral holes and removed the femoral component. The tibial tray was then set for proper external rotation as well as mediolateral placement onto the tibia. It was then pinned into place. I then proceeded with punching the keel. I then decided to proceed with cementing of all our components. The knee was thoroughly irrigated with sterile saline solution via pulse lavage. The lateral geniculate artery was identified and cauterized. All blood was removed from the bone of the tibia femur and patella with pulsed lavage. I then proceeded with cementing. Two packs of antibiotic bone cement were prepared on the back table by echo vasc tech. I then proceeded with cementing of the tibia first. The cement was impacted in the keel as well as deeply seated into the bone. A second coat cement was then placed. The tibia was then impacted into place. Excess cement was removed with Austin's and Jokers. I then proceeded with cementing of the femoral component. The femoral component was also cemented using standard technique. Excess cement was removed. A 10 mm trial insert was then placed into the knee. It was brought into full extension with a constant axial load placed until the cement had hardened. The patellar component was then cemented. This held firmly with a compressive device until the cement had dried. When the cement had dried, the knee was taken out of extension. All excess cement was removed from around the prosthesis. I then trialed the knee with a 10 mm insert. Flexion and extension gaps were appropriate. The knee was stable. It came into full extension. I decided to go forward with a 10 mm medial congruent cross-linked cruciate- retaining tibial insert. Polyethylene was then placed on the tibial tray and locked into place. The knee was then reduced. The knee was again further irrigated with sterile saline solution with antibiotic added. The IrriSept antiseptic solution was used at this time as well. The tourniquet was then deflated. Total tourniquet time for the procedure was 52 minutes at 250 mmHg. Final components were Jumana Persona size 6 narrow cruciate-retaining femoral component, a size C tibial tray, a 10 mm medial congruent cross-linked cruciate- retaining tibial insert, and a 29 x 8 mm patella. I then proceeded with closure. Again, the knee was thoroughly irrigated. The quadriceps tendon and the medial retinaculum were reapproximated with #2 Ethibond suture. The extensor mechanism was then closed with a running #2 Quill suture. Subcutaneous tissues were closed with 2-0 Vicryl interrupted suture. The skin was closed with a running 3-0 Quill suture. Dermabond was applied to the incision. Sterile compressive dressings were applied. All sponge and needle counts were deemed correct prior to closure. The patient tolerated the procedure without apparent complication. She was transferred to the recovery room in stable condition. MMODL / IJN: [id number] /
[2025-04-14] MEDS: HYDROmorphone 0.5 MG/0.5 ML SYRINGE IVP PRN (16:01)
[2025-04-14] MEDS: ONDANSETRON 4 MG/2 ML VIAL IVP ONE (17:13)
[2025-04-14] MEDS: ceFAZolin 2 GM in DEXTROSE 5% IN WATER 50 ML IVPB ONE (17:13)
[2025-04-14] MEDS: HYDROcodone/APAP 7.5-325MG 1 EACH TAB PO PRN (18:40)
[2025-04-14] MEDS: ceFAZolin 2 GM in DEXTROSE 5% IN WATER 50 ML IVPB SCH (18:40)
--- NOTE | 2025-04-14 19:51 | P.CONS ---
History of Present Illness - Reason for Consult Consult date: 04/14/25 Medical management - Chief Complaint Osteoarthritis - History of Present Illness This is a 75-year-old female patient with a past medical history of ovarian cancer status post chemotherapy and currently in remission, essential hypertension, history of bilateral extensive upper and lower lobe pulmonary edema back in 2020, osteoarthritis and anxiety . Patient admitted under Ortho for total left knee replacement. No complications postop. Past medical history : Osteoarthritis , history of submassive PE and ovarian cancer currently in remission Past surgical history : Orthopedic surgery, right ankle fracture surgery, bilateral Achilles tendon surgery, bilateral cataract surgery, right knee replaced Social history: No tobacco use, no alcohol use and no recreational drug use Review of system : Constitutional: Patient denies any fever or chills . No generalized weakness or weight loss. Abdomen: Patient denied nausea vomiting and diarrhea and abdominal pain. Cardiovascular: Patient denies any chest pain or short of breath no palpitations. Respiratory: Patient does have shortness of. No cough or sputum production. No leg swelling. Neurologic: Patient denied any numbness or tingling headache. Musculoskeletal: Patient denies any complaints of joint swelling or deformity. Skin: Negative Psychiatric: Negative Endocrine: No heat or cold intolerance. No recent weight gain. Genitourinary: No dysuria or hematuria. All other 14 point ROS negative except the above Physical exam : General: nontoxic, no distress, appears at stated age Derm: warm, dry, intact Head: atraumatic, normocephalic, symmetric Eyes: EOMI, anicteric sclera Mouth: no lip lesion, mucus membranes moist Cardiovascular: S1 S2 reg, no murmur, rubs, or gallops Lungs: CTA bilateral, no rales, no accessory muscle use Abdominal: soft, non-tender to palpataion, no appreciable organomegaly Extremities: Left knee surgical dressing , bilateral lower extremity edema +1 Neuro: Alert, Oriented, CNII-XII grossly intact, gait normal Psych: well appearing, appropriate affect Assessment and plan : -Essential hypertension : Patient on 2.5 mg lisinopril daily Will resume tomorrow -History of submassive pulmonary embolism with right ventricular strain and enlargement back in 2020 : Echocardiogram back in 2020 showing moderately enlarged right ventricular and moderately impaired right ventricular function with right ventricular systolic pressure of 46 She does have bilateral lower extremity edema and usually takes oral Lasix as needed Will reduce her fluid rate to 50 cc/h and give one-time dose of oral Lasix 20 mg -Osteoarthritis status post left knee replacement : Ortho is following CODE STATUS is full code DVT prophylaxis : SCD Thank you for the consult Time spent : 40 min Past Medical History Past Medical History: Cancer, Eye Disorder, Hyperlipidemia, Hypertension, Osteoarthritis (OA) Additional Past Medical History / Comment(s): HX OF OVARIAN CA WITH CHEMOTHERAPY (2010), pre glaucoma bi lat , dry eyes History of Any Multi-Drug Resistant Organisms: None Reported Past Surgical History: Cholecystectomy, Hysterectomy, Orthopedic Surgery Additional Past Surgical History / Comment(s): RIGHT ANKLE FX, ADDI ACHILLES TENDONS, ADDI CATARACT, right knee replacement , had port in for chemo but removed now. colonoscopy Past Anesthesia/Blood Transfusion Reactions: No Reported Reaction Additional Past Anesthesia/Blood Transfusion Reaction / Comm: no blood transfusion to date. Past Psychological History: Anxiety Smoking Status: Never smoker Past Alcohol Use History: None Reported Past Drug Use History: None Reported - Past Family History Mother History Unknown: Yes Family Medical History: No Reported History Father History Unknown: Yes Family Medical History: No Reported History Sister(s) Family Medical History: Cancer Additional Family Medical History / Comment(s): breast Medications and Allergies Home Medications Medication Instructions Recorded Confirmed Type Bimatoprost [Lumigan 0.01% Ophth 1 drop BOTH EYES BID 04/14/17 04/14/25 History Soln] cycloSPORINE [Restasis] 1 applicator BOTH EYES HS 04/14/17 04/14/25 History Atorvastatin Calcium [Lipitor] 20 mg PO QAM 09/18/21 04/14/25 History Citalopram Hydrobromide [CeleXA] 20 mg PO QAM 09/18/21 04/14/25 History lisinopriL [Zestril] 10 mg PO BID #60 tab 09/23/21 04/14/25 Rx Zolpidem [Ambien] 10 mg PO HS PRN 03/22/24 04/14/25 History Apixaban [Eliquis Starter Pack 2.5 mg PO BID 04/11/25 04/14/25 History (for VTE)] Furosemide [Lasix] 20 mg PO QAM PRN 04/11/25 04/14/25 History traMADol HCL 50 mg PO BID PRN 04/11/25 04/14/25 History Allergies Allergy/AdvReac Type Severity Reaction Status Date / Time adhesive Allergy Unknown Rash/Hives Verified 04/14/25 08:43 cefazolin Allergy Rash/Hives Verified 04/14/25 08:43 chloraprep Allergy Rash/Hives Uncoded 04/14/25 08:43 smoke Allergy "It causes Uncoded 04/14/25 08:43 bronchitis.' Physical Exam Vitals: Vital Signs Temp Pulse Pulse Resp BP BP Pulse Ox 04/14/25 17:44 97.9 F 79 20 135/82 95 04/14/25 16:15 74 12 114/68 95 04/14/25 15:45 82 16 116/74 95 04/14/25 15:16 78 15 116/67 95 04/14/25 14:45 79 14 107/61 94 L 04/14/25 14:30 86 16 110/71 93 L 04/14/25 14:15 78 15 101/64 93 L 04/14/25 14:00 80 14 105/60 94 L 04/14/25 13:50 74 12 100/56 94 L 04/14/25 13:35 76 12 118/66 94 L 04/14/25 13:15 79 13 95 04/14/25 12:59 76 13 120/71 97 04/14/25 12:44 96.8 F L 92 19 104/65 94 L 04/14/25 09:50 70 15 122/86 96 04/14/25 09:00 97.8 F 77 16 116/66 94 L Intake and Output 04/14/25 04/14/25 04/14/25 06:59 14:59 22:59 Intake Total 900 100 Output Total 100 Balance 800 100 Intake: IV 900 100 Output: Estimated Blood Loss 100 Other: Weight 101.5 kg 101.5 kg
--- NOTE | 2025-04-14 19:53 | P.ANPRN ---
Procedure Note - Anesthesia - Nerve Block Performed Left Adductor Canal Infusion Time Out Performed: Yes Date of Procedure: 04/14/25 Procedure Start Time: 09:39 Procedure Stop Time: :49 Location of Patient: PreOp Indication: Acute Post-Operative Pain, Requested by Surgeon Sedation Type: Sedate with meaningful contact maintained Preparation: Sterile Prep, Sterile Dressing Position: Supine Catheter: Indwelling Needle Types: Pajunk Needle Gauge: 21 Ultrasound used to visualize needle placement: Yes Ultrasound used to observe medication spread: Yes Blood Aspirated: No Pain Paresthesia on Injection Noted: No Resistance on Injection: Normal Image Stored and Saved: Yes Events: Uneventful and Well Tolerated (Ropivacaine 0.5% 3 cc was dexamethasone 4 mg)
--- NOTE | 2025-04-14 19:55 | P.ANPRN ---
Procedure Note - Anesthesia - Nerve Block Performed Left iPack Single Time Out Performed: Yes Date of Procedure: 04/14/25 Procedure Start Time: 09:50 Procedure Stop Time: :52 Location of Patient: PreOp Indication: Acute Post-Operative Pain, Requested by Surgeon Sedation Type: Sedate with meaningful contact maintained Preparation: Sterile Prep Position: Right Lateral Needle Types: Pajunk Needle Gauge: 21 Ultrasound used to visualize needle placement: Yes Ultrasound used to observe medication spread: Yes Blood Aspirated: No Pain Paresthesia on Injection Noted: No Resistance on Injection: Normal Image Stored and Saved: Yes Events: Uneventful and Well Tolerated (ropi 0.5% 20 cc dexamethasone 4 mg)
[2025-04-14] MEDS: SENNOSIDES-DOCUSATE SODIUM 1 EACH TAB PO SCH (20:44)
[2025-04-14] MEDS: FUROSEMIDE 20 MG TAB PO STA (20:44)
[2025-04-14] MEDS: APIXABAN 2.5 MG TABLET PO SCH (20:44)
[2025-04-15 02:45] LABS: Basophils # (A) 0.01 X 10*3/uL (0.00-0.10); Basophils % (A) 0.1 %; Eosinophils # (A) 0 X 10*3/uL (0.04-0.35); Eosinophils % (A) 0 %; HCT 42.6 % (37.2-46.3); HGB 13.5 g/dL (12.0-15.0); Lymphocytes # (A) 1.27 X 10*3/uL (0.90-5.00); Lymphocytes % (A) 12.2 %; MCH 30.2 pg (27.0-32.0); MCHC 31.7 g/dL (32.0-37.0); MCV 95.3 FL (80.0-97.0); Mean Platelet Volume 10.7 FL (9.5-12.2); Monocytes # (A) 0.34 X 10*3/uL (0.20-1.00); Monocytes % (A) 3.3 %; NRBC Per 100 WBC 0 X 10*3/uL (0.00-0.01); Neutrophils # (A) 8.75 X 10*3/uL (1.80-7.70); Platelet Count 260 X 10*3/uL (140-440); RBC 4.47 X 10*6/uL (4.10-5.20); RDW 13.1 % (11.5-14.5); WBC 10.41 X 10*3/uL (4.50-10.00)
[2025-04-15 03:55] LABS: BUN/Creat Ratio 14.33 Ratio (12.00-20.00); Blood Urea Nitrogen 12.9 mg/dL (9.0-27.0); Calcium 9.1 mg/dL (8.7-10.3); Carbon Dioxide 19.1 mmol/L (21.6-31.8); Chloride 105 mmol/L (96-109); Glucose 236 mg/dL (70-110); Potassium 4.3 mmol/L (3.5-5.5); Sodium 138 mmol/L (135-145)
--- NOTE | 2025-04-15 07:04 | P.PN ---
Progress Note - Text 04/15/25 652am 75-year-old female status post total knee replacement by Dr. Don. Patient seen and evaluated for postop pain control, she has an On-Q pump with a solution running at 8 cc an hour. Dressing clean dry and intact. She has a VAS of 5 at rest. Plan to continue On-Q pump infusion
[2025-04-15 08:20] LABS: Basophils # (A) 0.01 X 10*3/uL (0.00-0.10); Basophils % (A) 0.1 %; Eosinophils # (A) 0 X 10*3/uL (0.04-0.35); Eosinophils % (A) 0 %; HCT 36.3 % (37.2-46.3); HGB 11.9 g/dL (12.0-15.0); Lymphocytes # (A) 1.39 X 10*3/uL (0.90-5.00); Lymphocytes % (A) 16.5 %; MCH 30.9 pg (27.0-32.0); MCHC 32.8 g/dL (32.0-37.0); MCV 94.3 FL (80.0-97.0); Mean Platelet Volume 10.1 FL (9.5-12.2); Monocytes # (A) 0.53 X 10*3/uL (0.20-1.00); Monocytes % (A) 6.3 %; NRBC Per 100 WBC 0 X 10*3/uL (0.00-0.01); Neutrophils # (A) 6.45 X 10*3/uL (1.80-7.70); Neutrophils % (A) 76.7 %; Platelet Count 195 X 10*3/uL (140-440); RBC 3.85 X 10*6/uL (4.10-5.20); WBC 8.41 X 10*3/uL (4.50-10.00)
[2025-04-15] MEDS: FUROSEMIDE 20 MG TAB PO STA (10:28)
[2025-04-15] MEDS: HYDROmorphone 0.5 MG/0.5 ML SYRINGE IVP PRN (10:29)
[2025-04-15] MEDS: MULTIVITAMINS, THERA 1 EACH TAB PO SCH (12:40)
--- NOTE | 2025-04-15 14:34 | P.PN ---
Subjective Progress Note Date: 04/15/25 Hospital course: Patient is a very pleasant 75-year-old female with a past medical history of hypertension, hyperlipidemia, glaucoma, ovarian cancer status post chemotherapy followed by hysterectomy, history of extensive submassive upper and lower lobe PE on anticoagulation with Eliquis, anxiety, chronic lower extremity edema, and osteoarthritis. She is currently admitted under orthopedic surgery team status post left total knee arthroplasty.. We were consulted for medical management throughout hospitalization. Physical exam: Patient was seen and fully evaluated at bedside this morning. She was sitting up in chair. Currently reports postoperative pain is "pretty bad" stating maybe an 8/10. She reports she has been urinating without any difficulties, denies any nausea or vomiting, and denies having any numbness or weakness in her extremities. Patient does have moderate lower extremity swelling, states this is her baseline and she takes Lasix at home as needed. Patient did receive f luids over the past 24 hours. IV fluids discontinued at this time and patient given an additional dose of Lasix 20 mg orally this morning. She denies having any headache, lightheadedness, dizziness, chest pain, palpitations, shortness of breath, or any other complaints at this time. She reports tolerating oral intake and passing flatus but denies bowel movement since surgery as of yet. Vital signs reviewed and stable. General: Nontoxic, no distress and appears stated age. Derm: Skin warm and dry, normal coloration for ethnicity. Head: Atraumatic, normocephalic and symmetric. Eyes: EOM's intact, no lid lag, and anicteric sclera Mouth: no lip lesions, mucus membranes moist Cardiovascular: regular rate and rhythm with normal S1S2, no murmur, positive posterior tibial pulses bilaterally, and cap refill < 2 seconds. Lungs: Respirations even, regular, and unlabored on room air. Lungs CTA bilaterally, no rhonchi, no rales, no wheezing, and no accessory muscle usage. Abdominal: soft, nontender to palpation, no guarding, no appreciable organomegaly Ext: No gross muscle atrophy, no edema, no contractures. Movement and sensation intact. Postoperative dressing/Daryn wrap in place to left knee. Neuro: Speech clear, face symmetrical and CN II-XII grossly intact with no noted focal neuro deficits Psych: Alert and oriented to person, place, time, and situation. Appropriate and pleasant affect. Assessment and Plan of Care: Status post left total hip arthroplasty Management per primary admitting orthopedic surgery team including DVT prophylaxis, pain management, wound/dressing management, weightbearing, and PT/OT. Patient currently on anticoagulation with Eliquis 2.5 mg twice daily. Hypertension Monitor vital signs and continue daily medication regimen with lisinopril 10 mg twice daily. Chronic lower extremity edema Patient with moderate lower extremity edema, 2+ pitting. Does take Lasix 20 mg orally at home as needed. Patient received a one-time dose last night and an additional dose given this morning as patient has received IV fluid hydration over the past 24 hours. IV fluids discontinued. LM hose to right lower extremity and recommend elevation of lower extremities when not in use. History of submassive pulmonary emboli with right heart strain Patient okay to resume Eliquis by orthopedic surgery this evening. Glaucoma Continue with Restasis eyedrops to both eyes twice daily and Lantanoprost ophthalmology drops 1 drop both eyes nightly. Data reviewed: Postoperative labs reviewed. CBC showing acute postoperative blood loss anemia with preoperative hemoglobin of 13.5 and postoperative hemoglobin of 11.9. This is a stable and expected finding. No need for further intervention at this time. Vital signs reviewed. Blood pressure 135/66, heart rate 50, respiratory rate 17, temp 98.3 F, and SpO2 of 96% on room air Thank you for allowing us to participate in the care of this pleasant patient. Do not hesitate to contact us with questions. Someone can be reached from the [facility]ist group all hours of the day at [phone] or via [employer]. Patient was seen independently by Nurse Pracitioner. This document was prepared using [employer] dictation software. Please allow for errors in credit card associate, while rare they do occur. Jenaro Harris NP rendered care for this patient independently, reviewed the findings and plan as documented in the note above and agree with plan. I did not physically speak with or examine the patient on this date. Objective - Vital Signs Vital signs: Vital Signs Temp 97.5 F L 04/15/25 01:38 Pulse 63 04/15/25 01:38 Resp 17 04/15/25 01:38 BP 121/64 04/15/25 01:38 Pulse Ox 92 L 04/15/25 01:38 FiO2 Intake & Output 04/14/25 04/15/25 04/15/25 18:59 06:59 18:59 Intake Total 1000 Output Total 100 Balance 900 Weight 101.5 kg Intake: IV 1000 Output: Estimated Blood Loss 100 Other: # Voids 3 - Labs CBC & Chem 7: 04/15/25 05:58 04/14/25 20:34 Labs: Abnormal Lab Results - Last 24 Hours (Table) 04/14/25 04/14/25 04/15/25 Range/Units 20:34 20:34 05:58 WBC 10.41 H (4.50-10.00) X 10*3/uL RBC 3.85 L (4.10-5.20) X 10*6/uL Hgb 11.9 L (12.0-15.0) g/dL Hct 36.3 L (37.2-46.3) % MCHC 31.7 L (32.0-37.0) g/dL Neutrophils # 8.75 H (1.80-7.70) X 10*3/uL Eosinophils # 0 L 0 L (0.04-0.35) X 10*3/uL Carbon Dioxide 19.1 L (21.6-31.8) mmol/L Anion Gap 13.90 H (4.00-12.00) mmol/L Glucose 236 H (70-110) mg/dL
--- NOTE | 2025-04-15 15:48 | P.PN ---
Subjective Progress Note Date: 04/15/25 Principal diagnosis: Left TKA Patient is seen at bedside this morning. She is postop day #1 from left total knee arthroplasty. She has pain at the surgical site as expected but denies any new complaints. She denies numbness, tingling or calf pain. Review of systems is negative for fever, chills, chest pain, shortness of breath or other Objective - Vital Signs Vital signs: Vital Signs Temp 98.3 F 04/15/25 07:01 Pulse 50 L 04/15/25 07:01 Resp 17 04/15/25 07:01 BP 135/66 04/15/25 07:01 Pulse Ox 96 04/15/25 07:01 FiO2 Intake & Output 04/14/25 04/15/25 04/15/25 18:59 06:59 18:59 Intake Total 1000 Output Total 100 Balance 900 Weight 101.5 kg Intake: IV 1000 Output: Estimated Blood Loss 100 Other: # Voids 3 - Exam Inspection reveals a benign surgical wound. There is no active bleeding or drainage. Neurovascular status is intact throughout the lower extremity with motor and sensation fully intact. Calf is soft and nontender. 2+ dorsalis pedis pulse and less than 2 second cap refill is present. - Constitutional General appearance: Present: no acute distress - Labs CBC & Chem 7: 04/15/25 05:58 04/14/25 20:34 Labs: Abnormal Lab Results - Last 24 Hours (Table) 04/14/25 04/14/25 04/15/25 Range/Units 20:34 20:34 05:58 WBC 10.41 H (4.50-10.00) X 10*3/uL RBC 3.85 L (4.10-5.20) X 10*6/uL Hgb 11.9 L (12.0-15.0) g/dL Hct 36.3 L (37.2-46.3) % MCHC 31.7 L (32.0-37.0) g/dL Neutrophils # 8.75 H (1.80-7.70) X 10*3/uL Eosinophils # 0 L 0 L (0.04-0.35) X 10*3/uL Carbon Dioxide 19.1 L (21.6-31.8) mmol/L Anion Gap 13.90 H (4.00-12.00) mmol/L Glucose 236 H (70-110) mg/dL Assessment and Plan (1) Osteoarthritis of left knee Narrative/Plan: Shee will continue with routine postop orthopedic protocol including pain management, wound care, PT, DVT prophylaxis and medical management. Expect that he will transfer to home tomorrow Current Visit: Yes Status: Acute Priority: Medium Code(s): M17.12 - UNILATERAL PRIMARY OSTEOARTHRITIS, LEFT KNEE SNOMED Code(s): 477009862802148 Time with Patient: Less than 30
[2025-04-15] MEDS: lisinopriL 10 MG TAB PO SCH (16:42)
[2025-04-15] MEDS: ATORVASTATIN 20 MG TAB PO SCH (16:42)
[2025-04-15] MEDS: CITALOPRAM HYDROBROMIDE 20 MG TAB PO SCH (16:42)
[2025-04-15] MEDS: LATANOPROST 0.005% OPHTH DROPS 2.5 ML BTL BOTH EYES SCH (21:03)
[2025-04-15] MEDS: cycloSPORINE 0.05% OPHTH 0.4 ML DROPERETTE BOTH EYES SCH (21:11)
[2025-04-16 05:09] VITALS: RESP 17
--- NOTE | 2025-04-16 08:19 | P.PN ---
Subjective Progress Note Date: 04/16/25 Patient is seen at bedside this morning. She is postop day #2 from left total knee arthroplasty. She has pain at the surgical site as expected but denies any new complaints. She denies numbness, tingling or calf pain. Review of systems is negative for fever, chills, chest pain, shortness of breath. Objective - Vital Signs Vital signs: Vital Signs Temp 97.5 F L 04/16/25 07:15 Pulse 67 04/16/25 07:15 Resp 17 04/16/25 07:15 BP 156/81 04/16/25 07:15 Pulse Ox 96 04/16/25 07:15 FiO2 Intake & Output 04/15/25 04/16/25 04/16/25 18:59 06:59 18:59 Intake Total 2160 Balance 2160 Intake: Oral 2160 Other: Voiding Method Toilet # Voids 3 3 1 # Bowel Movements 1 - Exam Patient was examined at bedside. Patient is resting comfortably in bed. No apparent distress. They are awake, alert and able to answer questions. Inspection: The surgical dressing is intact, there is no drainage or strikethrough. The skin surrounding the dressing is free of erythema. There is mild swelling in the operative thigh. Palpation: The operative calf is soft to compression. No calf tenderness. Neurovascular: Operative femoral nerve function is intact. The patient is able to actively plantarflex and dorsiflex their operative ankle and toes. Operative extremity sensation is intact to light touch throughout. Their operative foot appears well perfused, palpable dorsalis pedis pulse, and capillary refill under 2 seconds. - Labs CBC & Chem 7: 04/15/25 05:58 04/14/25 20:34 Labs: Abnormal Lab Results - Last 24 Hours (Table) 04/15/25 Range/Units 05:58 RBC 3.85 L (4.10-5.20) X 10*6/uL Hgb 11.9 L (12.0-15.0) g/dL Hct 36.3 L (37.2-46.3) % Eosinophils # 0 L (0.04-0.35) X 10*3/uL Assessment and Plan Assessment: postop day #2 from left total knee arthroplasty Plan: She will continue with routine postop orthopedic protocol including pain management, wound care, PT, DVT prophylaxis and medical management. Patient attempted to work with physical therapy on 04/15/2025 but was painful. Patient continues to have left knee pain. Patient will stay until left knee p ain has been controlled with oral pain medication. Plan stay tonight.
--- NOTE | 2025-04-16 16:14 | P.PN ---
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 She is currently admitted under orthopedic surgery team status post left total knee arthroplasty.. We were consulted for medical management throughout hospitalization. Physical exam: Patient was seen and fully evaluated at bedside this morning. She was resting in bed at this time. She is postoperative day 2 and reports continued moderate postoperative pain throughout left hip. She denies having any nausea or vomiting. She does report bowel movement last night and has been urinating without difficulties. Vital signs reviewed and stable. General: Nontoxic, no distress and appears stated age. Derm: Skin warm and dry, normal coloration for ethnicity. Head: Atraumatic, normocephalic and symmetric. Eyes: EOM's intact, no lid lag, and anicteric sclera Mouth: no lip lesions, mucus membranes moist Cardiovascular: regular rate and rhythm with normal S1S2, no murmur, positive posterior tibial pulses bilaterally, and cap refill < 2 seconds. Lungs: Respirations even, regular, and unlabored on room air. Lungs CTA bilaterally, no rhonchi, no rales, no wheezing, and no accessory muscle usage. Abdominal: soft, nontender to palpation, no guarding, no appreciable organomegaly Ext: No gross muscle atrophy, no edema, no contractures. Movement and sensation intact. Postoperative dressing/Daryn wrap in place to left knee. Neuro: Speech clear, face symmetrical and CN II-XII grossly intact with no noted focal neuro deficits Psych: Alert and oriented to person, place, time, and situation. Appropriate and pleasant affect. Assessment and Plan of Care: Status post left total knee arthroplasty Management per primary admitting orthopedic surgery team including DVT prophylaxis, pain management, wound/dressing management, weightbearing, and PT/OT. Patient currently on anticoagulation with Eliquis 2.5 mg twice daily. Hypertension Monitor vital signs and continue daily medication regimen with lisinopril 10 mg twice daily. Chronic lower extremity edema Patient with moderate lower extremity edema, 2+ pitting. Does take Lasix 20 mg orally at home as needed. Patient received a one-time dose last night and an additional dose given this morning as patient has received IV fluid hydration over the past 24 hours. IV fluids discontinued. LM hose to right lower extremity and recommend elevation of lower extremities when not in use. History of submassive pulmonary emboli with right heart strain Patient okay to resume Eliquis by orthopedic surgery this evening. Glaucoma Continue with Restasis eyedrops to both eyes twice daily and Lantanoprost ophthalmology drops 1 drop both eyes nightly. Data reviewed: Labs reviewed. CBC showing acute postoperative blood loss anemia with preoperative hemoglobin of 13.5 and postoperative hemoglobin of 11.9. This is a stable and expected finding. No need for further intervention at this time. BMP showing mild hypocarbia with bicarb of 19.1 and elevated anion gap of 13.90 with blood glucose of 236. Vital signs reviewed. Blood pressure 156/81, heart rate 67, respiratory rate 17, temp 97.5 F, and SpO2 of 96% on room air. Initial plan was for discharge home with home care, per nursing staff, patient still requiring two-person assist to get out of bed, may require placement in SNF for rehab upon discharge. Thank you for allowing us to participate in the care of this pleasant patient. Do not hesitate to contact us with questions. Someone can be reached from the [facility] hospitalist group all hours of the day at [phone] or via [employer]. Patient was seen independently by Nurse Pracitioner. This document was prepared using [employer] dictation software. Please allow for errors in dock coordinator, while rare they do occur. Jenaro Harris NP rendered care for this patient independently, reviewed the findings and plan as documented in the note above and agree with plan. I did not physically speak with or examine the patient on this date. Objective - Vital Signs Vital signs: Vital Signs Temp 97.5 F L 04/16/25 07:15 Pulse 67 04/16/25 07:15 Resp 17 04/16/25 07:15 BP 156/81 04/16/25 07:15 Pulse Ox 96 04/16/25 07:15 FiO2 Intake & Output 04/15/25 04/16/25 04/16/25 18:59 06:59 18:59 Intake Total 2160 250 Balance 2160 250 Intake: Oral 2160 250 Other: Voiding Method Toilet # Voids 3 3 1 # Bowel Movements 1 - Labs CBC & Chem 7: 04/15/25 05:58 04/14/25 20:34
[2025-04-17 07:55] LABS: Basophils # (A) 0.02 10*3/uL (0.00-0.10); Basophils % (A) 0.3 %; Eosinophils # (A) 0.15 10*3/uL (0.04-0.35); Eosinophils % (A) 2.2 %; HCT 38.4 % (37.2-46.3); HGB 12.5 g/dL (12.0-15.0); Lymphocytes # (A) 2.01 10*3/uL (0.90-5.00); MCH 30.9 pg (27.0-32.0); MCHC 32.6 g/dL (32.0-37.0); MCV 94.8 fL (80.0-97.0); Mean Platelet Volume 10.1 fL (9.5-12.2); Monocytes # (A) 0.46 10*3/uL (0.20-1.00); Monocytes % (A) 6.6 %; Neutrophils # (A) 4.26 10*3/uL (1.80-7.70); Neutrophils % (A) 61.6 %; Platelet Count 209 10*3/uL (140-440); RBC 4.05 10*6/uL (4.10-5.20); RDW 13.2 % (11.5-14.5); WBC 6.92 10*3/uL (4.50-10.00)
[2025-04-17 08:10] VITALS: BP 135/84; PULSE 94; TEMP 98.5
[2025-04-17 08:27] LABS: African American GFR (CKD) >90 (>60 ml/min/1.73 sqM); Anion Gap 4 mmol/L; Blood Urea Nitrogen 15 mg/dL (7-17); Calcium 9.3 mg/dL (8.4-10.2); Carbon Dioxide 31 mmol/L (22-30); Chloride 100 mmol/L (98-107); Glucose 117 mg/dL (74-99); Magnesium 1.8 mg/dL (1.6-2.3); Non-African American GFR(CKD) 84 (>60 ml/min/1.73 sqM); Potassium 4.1 mmol/L (3.5-5.1); Sodium 135 mmol/L (137-145)
--- NOTE | 2025-04-17 09:02 | P.DS ---
Providers Date of admission: 04/14/25 08:11 Attending physician: Quinton Don Consults: 04/14/25 09:43 Consult Physician Routine Consulting Provider: Jose Arcos Consult Reason/Comments: post op medical management Do you want consulting provider notified?: Yes Primary care physician: Alex [facility] Course: This is a 75-year-old patient, with past medical history of severe left knee ost eoarthritis, who failed nonsurgical conservative management. On 04/14/2025 the patient presented to the [facility] pre-op department for scheduled total knee arthroplasty with Dr. Don. The patient tolerated the procedure well. The patient was transferred to the orthopedic floor. The patient had no acute events over night. The patient's pain has been well-controlled. Patient was examined at bedside. Patient is resting comfortably in bed. No apparent distress. They are awake, alert and able to answer questions. Inspection: The surgical dressing is intact, there is no drainage or strikethrough. The skin surrounding the dressing is free of erythema. There is mild swelling in the operative thigh. Palpation: The operative calf is soft to compression. No calf tenderness. Neurovascular: Operative femoral nerve function is intact. The patient is able to actively plantarflex and dorsiflex their operative ankle and toes. Operative extremity sensation is intact to light touch throughout. Their operative foot appears well perfused, palpable dorsalis pedis pulse, and capillary refill under 2 seconds. Patient is cleared to discharge home from orthopedic standpoint when cleared by internal medicine. We appreciate internal medicine with the perioperative medical management of this patient. Plan to discharge home today. Please see med rec for a list of accurate medications. Assessment: postop day #3 left total knee arthroplasty Plan - Discharge Summary Discharge Rx Participant: No New Discharge Prescriptions: New polyethylene glycoL 3350 [Miralax] 17 gm PO DAILY 30 Days #30 packet Docusate [Colace] 100 mg PO BID #60 capsule HYDROcodone/APAP 7.5-325MG [[place] 7.5-325] 1 - 2 tab PO Q6HR PRN #32 tab PRN Reason: Pain Ondansetron [Zofran] 4 mg PO Q8HR PRN #21 tab PRN Reason: Nausea Continue Bimatoprost [[place]um[place] 0.01% Ophth Soln] 1 drop BOTH EYES BID cycloSPORINE [Restasis] 1 applicator BOTH EYES HS Citalopram Hydrobromide [CeleXA] 20 mg PO QAM traMADol HCL 50 mg PO BID PRN PRN Reason: Pain Atorvastatin Calcium [Lipitor] 20 mg PO QAM lisinopriL [Zestril] 10 mg PO BID #60 tab Zolpidem [Ambien] 10 mg PO HS PRN PRN Reason: Insomnia Furosemide [Lasix] 20 mg PO QAM PRN PRN Reason: Edema No Action Apixaban [Eliquis Starter Pack (for VTE)] 2.5 mg PO BID Discharge Medication List Bimatoprost [[place] 0.01% Ophth Soln] 1 drop BOTH EYES BID 04/14/17 [History] cycloSPORINE [Restasis] 1 applicator BOTH EYES HS 04/14/17 [History] Atorvastatin Calcium [Lipitor] 20 mg PO QAM 09/18/21 [History] Citalopram Hydrobromide [CeleXA] 20 mg PO QAM 09/18/21 [History] lisinopriL [Zestril] 10 mg PO BID #60 tab 09/23/21 [Rx] Zolpidem [Ambien] 10 mg PO HS PRN 03/22/24 [History] Apixaban [Eliquis Starter Pack (for VTE)] 2.5 mg PO BID 04/11/25 [History] Furosemide [Lasix] 20 mg PO QAM PRN 04/11/25 [History] traMADol HCL 50 mg PO BID PRN 04/11/25 [History] Docusate [Colace] 100 mg PO BID #60 capsule 04/15/25 [Rx] HYDROcodone/APAP 7.5-325MG [[place] 7.5-325] 1 - 2 tab PO Q6HR PRN #32 tab 04/15/25 [Rx] Ondansetron [Zofran] 4 mg PO Q8HR PRN #21 tab 04/15/25 [Rx] polyethylene glycoL 3350 [Miralax] 17 gm PO DAILY 30 Days #30 packet 04/15/25 [Rx] Follow up Appointment(s)/Referral(s): [facility], [NON-STAFF] - 1-2 Days ([facility] will call you to schedule your in home nursing, physical therapy, and occupational therapy visits.) Quinton Don MD [STAFF PHYSICIAN] - 10 Days Activity/Diet/Wound Care/Special Instructions: Weight bear as tolerated May shower after 3 days if no bleeding Keep wound clean and dry. Leave Optifoam dressing on for 1 week postop. Then may dress with dry dressing as needed. Take meds as directed F/U with Dr. Don in office Discharge Disposition: HOME WITH HOME HEALTH SERVICES
--- NOTE | 2025-04-17 14:27 | P.PN ---
Subjective Progress Note Date: 04/17/25 Hospital course: Patient is a very pleasant 75-year-old female with a past medical history of hypertension, hyperlipidemia, glaucoma, ovarian cancer status post chemotherapy followed by hysterectomy, history of extensive submassive upper and lower lobe PE on anticoagulation with Eliquis, anxiety, chronic lower extremity edema, and osteoarthritis. She is currently admitted under orthopedic surgery team status post left total knee arthroplasty.. We were consulted for medical management throughout hospitalization. Physical exam: Patient was seen and fully evaluated at bedside this morning. She is postoperative day 3 and reports she is doing much better today. Patient ambulating with walker in room with minimal assist, reports postoperative pain is controlled with current pain medication regimen urinating without any difficulties patient reports she is ready for discharge and planning for discharge home with her cousin who is coming to stay with her and states her neighbor will also be coming over to help her when needed. Vital signs reviewed and stable. General: Nontoxic, no distress and appears stated age. Derm: Skin warm and dry, normal coloration for ethnicity. Head: Atraumatic, normocephalic and symmetric. Eyes: EOM's intact, no lid lag, and anicteric sclera Mouth: no lip lesions, mucus membranes moist Cardiovascular: regular rate and rhythm with normal S1S2, no murmur, positive posterior tibial pulses bilaterally, and cap refill < 2 seconds. Lungs: Respirations even, regular, and unlabored on room air. Lungs CTA bilaterally, no rhonchi, no rales, no wheezing, and no accessory muscle usage. Abdominal: soft, nontender to palpation, no guarding, no appreciable o rganomegaly Ext: No gross muscle atrophy, no edema, no contractures. Movement and sensation intact. Postoperative dressing/Daryn wrap in place to left knee. Neuro: Speech clear, face symmetrical and CN II-XII grossly intact with no noted focal neuro deficits Psych: Alert and oriented to person, place, time, and situation. Appropriate and pleasant affect. Assessment and Plan of Care: Status post left total knee arthroplasty Management per primary admitting orthopedic surgery team including DVT prophylaxis, pain management, wound/dressing management, weightbearing, and PT/OT. Patient currently on anticoagulation with Eliquis 2.5 mg twice daily. Hypertension Monitor vital signs and continue daily medication regimen with lisinopril 10 mg twice daily. Chronic lower extremity edema Patient with moderate lower extremity edema, 2+ pitting. Does take Lasix 20 mg orally at home as needed. Patient received a one-time dose last night and an additional dose given this morning as patient has received IV fluid hydration over the past 24 hours. IV fluids discontinued. LM hose to right lower extremity and recommend elevation of lower extremities when not in use. History of submassive pulmonary emboli with right heart strain Continue anticoagulation with Eliquis 2.5 mg twice daily. Glaucoma Continue with Restasis eyedrops to both eyes twice daily and Lantanoprost ophthalmology drops 1 drop both eyes nightly. Data reviewed: Labs reviewed. CBC unremarkable with WBC count of 6.92, hemoglobin of 12.5, platelet count of 209. BMP showing sodium 135, bicarb of 31 and blood glucose of 117. Calcium 9.3. Magnesium 1.8 Vital signs reviewed. Blood pressure 135/84, heart rate 94, respiratory rate 17, temp 98.5 F, and SpO2 of 97% on room air Patient had significant improvement over the past 24 hours and is ambulating with walker without difficulties and requiring minimal assistance. Orthopedic surgery discharging patient at this time. Patient is medically optimized for discharge and discharge medication reconciliation was completed. Thank you for allowing us to participate in the care of this pleasant patient. Do not hesitate to contact us with questions. Someone can be reached from the [facility] hospitalist group all hours of the day at [phone] or via [employer]. Patient was seen independently by Nurse Pracitioner. This document was prepared using [employer] dictation software. Please allow for errors in catalyst supervisor, while rare they do occur. Jenaro Harris NP rendered care for this patient independently, reviewed the findings and plan as documented in the note above and agree with plan. I did not physically speak with or examine the patient on this date. Objective - Vital Signs Vital signs: Vital Signs Temp 98.5 F 04/17/25 08:00 Pulse 94 04/17/25 08:00 Resp 17 04/17/25 08:00 BP 135/84 04/17/25 08:00 Pulse Ox 97 04/17/25 08:00 FiO2 Intake & Output 04/16/25 04/17/25 04/17/25 18:59 06:59 18:59 Intake Total 600 Balance 600 Intake: Oral 600 Other: Voiding Method Toilet # Voids 1 2 - Labs CBC & Chem 7: 06/08/25 07:24 04/17/25 07:24 Labs: Abnormal Lab Results - Last 24 Hours (Table) 04/17/25 04/17/25 Range/Units 07:24 07:24 RBC 4.05 L (4.10-5.20) 10*6/uL Sodium 135 L (137-145) mmol/L Carbon Dioxide 31 H (22-30) mmol/L Glucose 117 H (74-99) mg/dL
== END 2025-04-17 11:12 | disposition home health service (06) | DRG 470 ==
LOC: OR 08:10 → 4SSUR 08:11 → OR 08:11 → 4SSUR 12:37
PROVIDERS: ADMIT Orthopaedic Surgery Sports Medicine; ATTEND Orthopaedic Surgery Sports Medicine
PROC: 0SRD0J9 Replacement of Left Knee Joint with Synthetic Substitute, Cemented, Open Approach (ICD-10-PCS; principal; 2025-04-14 09:50)
DX: M17.12 Unilateral primary osteoarthritis, left knee (principal); F33.1 Major depressive disorder, recurrent, moderate; Z68.41 Body mass index [BMI] 40.0-44.9, adult; I10 Essential (primary) hypertension; E66.01 Morbid (severe) obesity due to excess calories; E78.2 Mixed hyperlipidemia; F41.1 Generalized anxiety disorder; G47.00 Insomnia, unspecified; H40.9 Unspecified glaucoma; Z85.43 Personal history of malignant neoplasm of ovary; Z86.711 Personal history of pulmonary embolism; Z92.21 Personal history of antineoplastic chemotherapy; Z96.651 Presence of right artificial knee joint; Z79.01 Long term (current) use of anticoagulants; Z79.899 Other long term (current) drug therapy; Z86.718 Personal history of other venous thrombosis and embolism
CPT/HCPCS: 64448; 64474; 80048; 83735; 85025